=== PATIENT | male | born 1970 | race Two or more races ===

== ENCOUNTER 2017-04-10 09:55 | Emergency (ER) | payer OTHER ==
[~2017-04-10] VITALS: Ht 162.6 cm; Wt 84.8 kg
[2017-04-10 10:25] VITALS: BP 145/81
--- NOTE | 2017-04-10 10:27 | Emergency Room Report ---
History of Present Illness General Chief Complaint: General Complaint Source: Patient Present Illness HPI Patient present with complaints of rash and itching of his arms and legs Patient feels over the past several days he has had increased itching This morning upon waking he felt some shortness of breath sensation Patient also had felt cramping in both of his upper legs Denies any vomiting or diarrhea denies any fevers or chills Patient fell possibly his dog sitting on him might be causing some problems as his symptoms are worse in the morning Denies any change medications Allergies: Coded Allergies: UNABLE TO ASSESS (Unverified , 04/10/17) Patient stated that he is allergic to some antibiotics but unable to provide the name Patient History Past Medical History: see triage record Pertinent Family History: none Reviewed Nursing Documentation: PMH: Agreed, PSxH: Agreed Nursing Documentation-PMH Past Medical History: No History, Except For History Of Psychiatric Problem: Yes - Bipolar, Anxiety, ADHD Review of Systems All Other Systems: negative except mentioned in HPI Physical Exam Vital Signs Date Time Temp Pulse Resp B/P Pulse Ox O2 Delivery O2 Flow Rate FiO2 04/10/17 10:01 97.9 120 16 145/96 99 Room Air Sp02 EP Interpretation: reviewed, normal General Appearance: well appearing, no apparent distress Head: normocephalic, atraumatic Eyes: bilateral eye EOMI, bilateral eye PERRL ENT: hearing grossly normal, normal pharynx, TMs + canals normal, uvula midline Neck: full range of motion, supple, no meningismus, no bony tend Respiratory: lungs clear, normal breath sounds, no rhonchi, no respiratory distress, no retraction, no accessory muscle use Cardiovascular #1: normal peripheral pulses, regular rate, rhythm, no edema, no gallop, no JVD, no murmur Gastrointestinal: normal bowel sounds, non tender, soft, no mass, no organomegaly, non-distended, no guarding, no hernia, no pulsatile mass, no rebound Genitourinary: no CVA tenderness Musculoskeletal: normal inspection Neurologic: oriented x3, responsive, silk screen printing racker III-XII nml as tested, motor strength/ tone normal, sensory intact Psychiatric: mood/affect normal Skin: other - Nonspecific mildly raised erythematous lesion, urticarial on the upper arms, upper neck area Lymphatic: normal inspection, no adenopathy Medical Decision Making Diagnostic Impression: Primary Impression: Rash and nonspecific skin eruption ER Course Multiple differentials considered Given the patient's muscle complaints Baseline blood work including CK was also obtained Patient has done well throughout his stay No signs of any respiratory pathology Total CK was normal And the patient stable for close outpatient followup Labs Test 04/10/17 10:30 White Blood Count 7.4 K/UL (4.8-10.8) Red Blood Count 7.01 M/UL (4.70-6.10) Hemoglobin 14.7 G/DL (14.2-18.0) Hematocrit 48.3 % (42.0-52.0) Mean Corpuscular Volume 69 FL (80-99) Mean Corpuscular Hemoglobin 21.0 PG (27.0-31.0) Mean Corpuscular Hemoglobin Concent 30.5 G/DL (32.0-36.0) Red Cell Distribution Width 15.0 % (11.6-14.8) Platelet Count 235 K/UL (150-450) Mean Platelet Volume 6.7 FL (6.5-10.1) Neutrophils (%) (Auto) 70.7 % (45.0-75.0) Lymphocytes (%) (Auto) 23.0 % (20.0-45.0) Monocytes (%) (Auto) 5.1 % (1.0-10.0) Eosinophils (%) (Auto) 0.6 % (0.0-3.0) Basophils (%) (Auto) 0.6 % (0.0-2.0) Sodium Level 137 mEQ/L (135-145) Potassium Level 4.2 mEQ/L (3.4-4.9) Chloride Level 94 mEQ/L (98-107) Carbon Dioxide Level 29 mEQ/L (20-30) Anion Gap 14 (5-15) Blood Urea Nitrogen 17 mg/dL (7-23) Creatinine 1.2 mg/dL (0.7-1.2) Estimat Glomerular Filtration Rate > 60 mL/min (>60) Glucose Level 142 mg/dL (74-106) Calcium Level 9.4 mg/dL (8.6-10.2) Total Bilirubin 0.2 mg/dL (0.0-1.2) Aspartate Amino Transf (AST/SGOT) 19 U/L (5-40) Alanine Aminotransferase (ALT/SGPT) 15 U/L (3-41) Alkaline Phosphatase 79 U/L (40-129) Total Creatine Kinase 67 U/L (38-174) Total Protein 7.5 g/dL (6.6-8.7) Albumin 4.3 g/dL (3.5-5.2) Globulin 3.2 g/dL Albumin/Globulin Ratio 1.3 (1.0-2.7) Last Vital Signs Date Time Temp Pulse Resp B/P Pulse Ox O2 Delivery O2 Flow Rate FiO2 04/10/17 10:01 97.9 120 16 145/96 99 Room Air Status: improved Disposition: HOME, SELF-CARE Condition: Improved Scripts Ranitidine Hcl* (ZANTAC*) 150 Mg Tablet 150 MG ORAL TWICE A DAY, #30 TAB Prov: MIKAELA SANCHEZ D.O. 04/10/17 Diphenhydramine Hcl* (BENADRYL*) 25 Mg Capsule 25 MG ORAL Q6H Y for Itching, #30 CAP Prov: MIKAELA SANCHEZ D.O. 04/10/17 Prednisone* (PREDNISONE*) 20 Mg Tablet 20 MG ORAL BID, #8 TAB Prov: MIKAELA SANCHEZ D.O. 04/10/17 Additional Instructions: Patient is provided with the discharge instructions notified to follow up with primary doctor in the next 2-3 days otherwise return to the er with any worsening symptoms. Please note that this report is being documented using [employer] technology. This can lead to erroneous entry secondary to incorrect interpretation by the dictating instrument. MIKAELA SANCHEZ D.O. April 10, 2017 10:27
[2017-04-10] MEDS ORDERED: Solu-MEDROL 125mg Inj IVP ONE (10:30)
[2017-04-10] MEDS ORDERED: DiphenhydrAMINE 50mg/ml Inj IVP ONE (10:30)
[2017-04-10] MEDS ORDERED: Solu-MEDROL 125mg Inj IM ONE (10:30)
[2017-04-10 10:59] LABS: BASOPHILS % (AUTO) 0.6 % (0.0-2.0); EOSINOPHILS % (AUTO) 0.6 % (0.0-3.0); MEAN CORPUSCULAR HGB CONC 30.5 G/DL (32.0-36.0); MEAN CORPUSCULAR VOLUME 69 FL (80-99); MEAN PLATELET VOLUME 6.7 FL (6.5-10.1); MONOCYTES % (AUTO) 5.1 % (1.0-10.0); NEUTROPHILS % (AUTO) 70.7 % (45.0-75.0); PLATELET COUNT 235 K/UL (150-450); RED BLOOD COUNT 7.01 M/UL (4.70-6.10); WHITE BLOOD COUNT 7.4 K/UL (4.8-10.8)
[2017-04-10 11:04] VITALS: BP 140/86
[2017-04-10 11:18] LABS: ALANINE AMINOTRANSFERASE 15 U/L (3-41); ALBUMIN/GLOBULIN RATIO 1.3 (1.0-2.7); ANION GAP 14 (5-15); ASPARTATE AMINO TRANSFERASE 19 U/L (5-40); CALCIUM 9.4 mg/dL (8.6-10.2); CARBON DIOXIDE 29 mEQ/L (20-30); CHLORIDE 94 mEQ/L (98-107); CREATININE 1.2 mg/dL (0.7-1.2); GLOMERULAR FILTRATION RATE > 60 mL/min (>60); HEMOLYSIS 3; POTASSIUM 4.2 mEQ/L (3.4-4.9); SODIUM 137 mEQ/L (135-145); TOTAL PROTEIN 7.5 g/dL (6.6-8.7)
[2017-04-10] MEDS ORDERED: PREDNISONE20 MG ORAL (11:33)
[2017-04-10] MEDS ORDERED: RANITIDINE HCL150 MG ORAL (11:33)
[2017-04-10] MEDS ORDERED: BENADRYL25 MG ORAL (11:33)
[2017-04-10 11:42] VITALS: BP 142/86
== END 2017-04-10 11:45 | disposition home or self-care (01) ==
LOC: EMR 10:30
DX: R21 Rash and other nonspecific skin eruption (principal); Z86.59 Personal history of other mental and behavioral disorders
CPT/HCPCS: 36415; 80053; 82550; 85025; 96374; 96375; 99284; J2930

== ENCOUNTER 2018-11-14 16:28 | Inpatient (IN) | payer BC, OTHER ==
[~2018-11-14] VITALS: Ht 167.6 cm; Wt 93.8 kg
[2018-11-14] VITALS (9 sets, daily range): BP systolic 90–129; BP diastolic 60–88
[~2018-11-14 16:28] MED LIST: BENADRYL25 MG ORAL; PREDNISONE20 MG ORAL; RANITIDINE HCL150 MG ORAL
[2018-11-14] MEDS ORDERED: CYTOMEL25 MCG ORAL (16:35)
[2018-11-14] MEDS ORDERED: TRAZODONE HCL50 MG ORAL (16:35)
[2018-11-14] MEDS ORDERED: CELEXA20 MG ORAL (16:35)
[2018-11-14] MEDS ORDERED: QUETIAPINE FUM200 MG ORAL (16:35)
[2018-11-14] MEDS ORDERED: MAGNESIUM OXID400 M1 ORAL (16:35)
[2018-11-14] MEDS ORDERED: BANOPHEN25 MG PO (16:35)
--- NOTE | 2018-11-14 16:37 | Emergency Room Report ---
History of Present Illness General Chief Complaint: Overdose Source: Patient, EMS Present Illness HPI EMS was contacted for an overdose. The patient allegedly took a Seroquel and Celexa. They're unable to ascertain what time. There were multiple tablets that were taken. The patient ambulated to the [facility]. Paramedics report decreasing mentation on the way into the hospital. An EKG in the field had sinus tachycardia. The patient states he took the pills 2 hours ago and wanted to kill himself. H/O bipolar disorder (from review of outpatient visits), ADHD and anxiety Further history unavailable. Allergies: Coded Allergies: No Known Allergies (Unverified , 11/14/18) UNABLE TO ASSESS (Unverified , 04/10/17) Patient stated that he is allergic to some antibiotics but unable to provide the name Patient History Limited by: medical condition Past Medical History: see triage record Social History: Denies: smoking Social History Narrative in rehab Reviewed Nursing Documentation: PMH: Agreed; PSxH: Agreed Review of Systems All Other Systems: limited Physical Exam Vital Signs Date Time Temp Pulse Resp B/P (MAP) Pulse Ox O2 Delivery O2 Flow Rate FiO2 11/14/18 16:17 160 16 121/85 89 Room Air Sp02 EP Interpretation: reviewed, abnormal - Interpreted as low by me General Appearance: non-toxic, other - GCS 13, eyes closed localizes pain vocalizes Head: normocephalic, atraumatic Eyes: bilateral eye PERRL, bilateral eye Scleral Injection ENT: moist mucus membranes Neck: supple Respiratory: chest non-tender, lungs clear, normal breath sounds, other - decreased tidal volume Cardiovascular #1: no edema, tachycardia Cardiovascular #2: 2+ radial (L) Gastrointestinal: non tender, soft, decreased bowel sounds, overweight Musculoskeletal: normal range of motion Neurologic: motor strength/tone normal - withdraws to pain, moves all 4, sensory intact, no Babinski, other - gag intact and opens eyes with this Psychiatric: other - stupor Reflexes: 2+ knee (R), 2+ knee (L) Skin: warm/dry, cyanosis Procedures Critical Care Time Critical Care Time Total Critical Care Time: 90 min bedside evaluation and treatment excludes procedures (EKG). Reason for critical care: overdose, respiratory failure, repeat evaluations Possible complications: hypotension, hypertension, OK, shock, arrhythmias, metabolic acidosis, end organ damage, respiratory failure. Interventions: BIPAP, cardiac monitoring, repeat evaluations, consultation with critical care MD Course: Patient presents 2 hours after ingestion of Celexa and Seroquel. Immediate assessment of airway and respiratory status. BIPAP begun with continuous CO2 monitoring. IV hydration. Improved CO2 and O2 on BIPAP. ST improving with IV hydration and treatment of respiratory failure. Discussion with critical care MD/family. Improved mentation with repeat evaluation on BIPAP. Consultations: nursing staff, EMS, RT, family, literature, critical care MD Performed by: Dr. Garcia Tolerated well condition = critical Medical Decision Making Diagnostic Impression: Primary Impression: Drug overdose Qualified Codes: T50.902A - Poisoning by unspecified drugs, medicaments and biological substances, intentional self-harm, initial encounter Additional Impressions: Respiratory failure Qualified Codes: J96.01 - Acute respiratory failure with hypoxia; J96.02 - Acute respiratory failure with hypercapnia UTI (urinary tract infection) Qualified Codes: N39.0 - Urinary tract infection, site not specified Suicide gesture Qualified Codes: X83.8XXA - Intentional self-harm by other specified means, initial encounter ER Course Patient presents after overdose of allegedly Seroquel and Celexa. He is tachycardic and has decreased mentation, hypoxemic but is protecting his airway. We need immediate blood gas to ascertain whether he needs to be intubated at this time. In addition to that we may end up alkalinizing him with bicarbonate. Differential includes polypharmacy overdose, stupor, electrolyte abnormality, acute myocardial infarction, suicide gesture amongst others. Evaluation will be with EKG, blood gas, chest x-ray and labs. Initially will treated with IV hydration and placed him on a health sciences department chair. Review of care of Celexa and Seroquel OD performed. No gastric lavage as > 2 hours since ingestion. As stupor, charcoal contraindicated. No need for benzodiazepines as not agitated. Monitor for QT prolongation as arrhythmia is of concern. With respiratory depression, may need to support with intubation. EKG with ST. QT prolonged. ABG 62/52/7.26. Start BIPAP. Labs with normal WBC. Min anemia. Glucose slightly elevated. K minimally low. UA with pyuria. CXR poor inspiration. Rocephin begun for pyuria. On Bipap, O2 sat improved and CO2 in 20's. Not need intubation, but needs close follow. Repeat evaluation: tachycardia improved. Opens his eyes and answers some questions following some commands, but still lethargic. Mentation and responsiveness has improved. CO2 monitor still reveals no retention and adequate ventilation. O2 sat 98%. HR still tachycardia but improved. No agitation and benzodiazepines not indicated at this time. Continued IV hydration and cardiac and CO2 monitoring. Admit ICU, Dr. Leary (per request of Dr. Grace). Dr. Chiang to consult when more alert. Laboratory Tests Test 11/14/18 16:40 11/14/18 18:48 Urine Color Viviana Urine Appearance Clear Urine pH 6.5 (4.5-8.0) Urine Specific [place] 1.015 (1.005-1.035) Urine Protein 1+ (NEGATIVE) H Urine Glucose (UA) Negative (NEGATIVE) Urine Ketones Negative (NEGATIVE) Urine Blood 1+ (NEGATIVE) H Urine Nitrite Negative (NEGATIVE) Urine Bilirubin Negative (NEGATIVE) Urine Ictotest Negative (NEGATIVE) Urine Urobilinogen Normal MG/DL (0.0-1.0) Urine Leukocyte Esterase 1+ (NEGATIVE) H Urine RBC 0-2 /HPF (0 - 0) H Urine WBC 10-15 /HPF (0 - 0) H Urine Squamous Epithelial Cells Occasional /LPF Urine Amorphous Sediment Moderate /LPF (NONE) H Urine Bacteria Few /HPF (NONE) Arterial Blood pH 7.298 (7.350-7.450) Arterial Blood Partial Pressure CO2 52.3 mmHg (35.0-45.0) H Arterial Blood Partial Pressure O2 62.5 mmHg (75.0-100.0) L Arterial Blood HCO3 25.0 mmol/L (22.0-26.0) Arterial Blood Oxygen Saturation 89.7 % (95-100) *L Arterial Blood Base Excess -2.1 (-2-2) L Derek Test Positive Sodium Level 137 MMOL/L (136-145) Potassium Level 3.4 MMOL/L (3.5-5.1) L Chloride Level 99 MMOL/L (98-107) Carbon Dioxide Level 27 MMOL/L (21-32) Anion Gap 11 mmol/L (5-15) Blood Urea Nitrogen 17 mg/dL (7-18) Creatinine 1.0 MG/DL (0.55-1.30) Estimate Glomerular Filtration Rate > 60 mL/min (>60) Glucose Level 152 MG/DL (74-106) H Calcium Level 9.2 MG/DL (8.5-10.1) Total Bilirubin 0.4 MG/DL (0.2-1.0) Aspartate Amino Transferase (AST) 22 U/L (15-37) Alanine Aminotransferase (ALT) 46 U/L (12-78) Alkaline Phosphatase 99 U/L (46-116) Total Creatine Kinase 53 U/L (26-308) Troponin I 0.000 ng/mL (0.000-0.056) Total Protein 8.8 G/DL (6.4-8.2) H Albumin 4.0 G/DL (3.4-5.0) Globulin 4.8 g/dL Albumin/Globulin Ratio 0.8 (1.0-2.7) L Salicylates Level 1.7 ug/mL (2.8-20) L Urine Opiates Screen Negative (NEGATIVE) Acetaminophen Level < 2 MCG/ML (10-30) L Urine Barbiturates Screen Negative (NEGATIVE) Phencyclidine (PCP) Screen Negative (NEGATIVE) Urine Amphetamines Screen Negative (NEGATIVE) Urine Benzodiazepines Screen Negative (NEGATIVE) Urine Cocaine Screen Negative (NEGATIVE) Urine Marijuana (THC) Screen Negative (NEGATIVE) Serum Alcohol < 3 mg/dL White Blood Count 9.8 K/UL (4.8-10.8) Red Blood Count 5.33 M/UL (4.70-6.10) Hemoglobin 10.5 G/DL (14.2-18.0) L Hematocrit 34.8 % (42.0-52.0) L Mean Corpuscular Volume 65 FL (80-99) L Mean Corpuscular Hemoglobin 19.6 PG (27.0-31.0) L Mean Corpuscular Hemoglobin Concent 30.0 G/DL (32.0-36.0) L Red Cell Distribution Width 15.1 % (11.6-14.8) H Platelet Count 150 K/UL (150-450) Mean Platelet Volume 8.1 FL (6.5-10.1) Neutrophils (%) (Auto) 81.1 % (45.0-75.0) H Lymphocytes (%) (Auto) 11.4 % (20.0-45.0) L Monocytes (%) (Auto) 6.4 % (1.0-10.0) Eosinophils (%) (Auto) 0.5 % (0.0-3.0) Basophils (%) (Auto) 0.7 % (0.0-2.0) EKG Diagnostic Results Rate: tachycardiac Rhythm: NSR ST Segments: no acute changes Rhythm Strip Diag. Results EP Interpretation: yes Rhythm: no PVC's, no ectopy, other - ST Chest X-Ray Diagnostic Results Chest X-Ray Diagnostic Results : Chest X-Ray Ordered: Yes # of Views/Limited/Complete: 1 View Indication: Other EP Interpretation: Yes Interpretation: no consolidation, no effusion, no pneumothorax, other - poor inspiration Impression: Other Electronically Signed by: Electronically signed by Kwame Garcia MD Status: improved Disposition: ADMITTED INPATIENT Condition: Critical Kwame Garcia MD Nov 14, 2018 16:37
[2018-11-14 16:56] LABS: APPEARANCE,URINE CLEAR; BILIRUBIN, URINE NEGATIVE (NEGATIVE); COLOR,URINE AMBER; GLUCOSE, URINE (UA) NEGATIVE (NEGATIVE); KETONES,URINE NEGATIVE (NEGATIVE); LEUKOCYTE ESTERASE ,URINE 1+ (NEGATIVE); NITRITE,URINE NEGATIVE (NEGATIVE); PH,URINE 6.5 (4.5-8.0); PROTEIN,URINE 1+ (NEGATIVE); UROBILINOGEN,URINE NORMAL MG/DL (0.0-1.0)
[2018-11-14 17:31] LABS: ANION GAP 11 mmol/L (5-15); BLOOD UREA NITROGEN 17 mg/dL (7-18); CALCIUM 9.2 MG/DL (8.5-10.1); CARBON DIOXIDE 27 MMOL/L (21-32); CHLORIDE 99 MMOL/L (98-107); POTASSIUM 3.4 MMOL/L (3.5-5.1); SODIUM 137 MMOL/L (136-145)
[2018-11-14 17:36] LABS: ALANINE AMINOTRANSFERASE 46 U/L (12-78); ALBUMIN/GLOBULIN RATIO 0.8 (1.0-2.7); ALKALINE PHOSPHATASE 99 U/L (46-116); ASPARTATE AMINO TRANSFERASE 22 U/L (15-37); BILIRUBIN,TOTAL 0.4 MG/DL (0.2-1.0); CREATINE KINASE 53 U/L (26-308)
[2018-11-14] MEDS ORDERED: cefTRIAXone 1 GM in NS 55 ML IVPB ONE (18:00)
[2018-11-14 18:57] LABS: BASOPHILS % (AUTO) 0.7 % (0.0-2.0); EOSINOPHILS % (AUTO) 0.5 % (0.0-3.0); HEMATOCRIT 34.8 % (42.0-52.0); HEMOGLOBIN 10.5 G/DL (14.2-18.0); LYMPHOCYTES % (AUTO) 11.4 % (20.0-45.0); MEAN CORPUSCULAR VOLUME 65 FL (80-99); MONOCYTES % (AUTO) 6.4 % (1.0-10.0); NEUTROPHILS % (AUTO) 81.1 % (45.0-75.0); PLATELET COUNT 150 K/UL (150-450); RED BLOOD COUNT 5.33 M/UL (4.70-6.10); RED CELL DISTRIBUTION WIDTH 15.1 % (11.6-14.8); WHITE BLOOD COUNT 9.8 K/UL (4.8-10.8)
[2018-11-14] MEDS: Heparin 5000 units/ml inj SUBQ SCH (20:37)
[2018-11-14] MEDS: Pantoprazole Inj IVP SCH (20:37)
--- NOTE | 2018-11-14 21:58 | Pulmonolgy Critical Care Note ---
Critical Care - Asmt/Plan Assessment/Plan: Pulmonary CCM Consultation HPI Patient admitted after an overdose. The patient allegedly took a Seroquel and Celexa. They're unable to ascertain what time. There were multiple tablets that were taken. The patient ambulated to the [facility]. Please decreasing mentation on the way into the hospital. An EKG didn't had sinus tachycardia. The patient states he took the pills 2 hours ago and wanted to kill himself. On Bipap Started on Ceftriaxone for UTI Allergies: No Known Allergies (Unverified , 11/14/18) Past Medical History: none noted Physical Exam Vital Signs Noted Date Time Temp Pulse Resp B/P (MAP) Pulse Ox O2 Delivery O2 Flow Rate FiO2 11/14/18 16:17 160 16 121/85 89 Room Air General Appearance: non-toxic, other - GCS 13, eyes closed localizes pain vocalizes Head: normocephalic, atraumatic Eyes: bilateral eye PERRL, bilateral eye Scleral Injection ENT: moist mucus membranes Neck: supple Respiratory: chest non-tender, lungs clear, normal breath sounds Cardiovascular #1: tachycardia, HS1, HS2 RRR Abdomen: SNTND Extremities: No edema, no rashes 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 Intubate if neccessary Monitor labs/ABG NPO Aspiration precautions Cardiac Monitoring Continue Ceftriaxone Laboratory Tests Test 11/14/18 16:40 11/14/18 18:48 Urine Color Viviana Urine Appearance Clear Urine pH 6.5 (4.5-8.0) Urine Specific [place] 1.015 (1.005-1.035) Urine Protein 1+ (NEGATIVE) H Urine Glucose (UA) Negative (NEGATIVE) Urine Ketones Negative (NEGATIVE) Urine Blood 1+ (NEGATIVE) H Urine Nitrite Negative (NEGATIVE) Urine Bilirubin Negative (NEGATIVE) Urine Ictotest Negative (NEGATIVE) Urine Urobilinogen Normal MG/DL (0.0-1.0) Urine Leukocyte Esterase 1+ (NEGATIVE) H Urine RBC 0-2 /HPF (0 - 0) H Urine WBC 10-15 /HPF (0 - 0) H Urine Squamous Epithelial Cells Occasional /LPF Urine Amorphous Sediment Moderate /LPF (NONE) H Urine Bacteria Few /HPF (NONE) Arterial Blood pH 7.298 (7.350-7.450) Arterial Blood Partial Pressure CO2 52.3 mmHg (35.0-45.0) H Arterial Blood Partial Pressure O2 62.5 mmHg (75.0-100.0) L Arterial Blood HCO3 25.0 mmol/L (22.0-26.0) Arterial Blood Oxygen Saturation 89.7 % (95-100) *L Arterial Blood Base Excess -2.1 (-2-2) L Derek Test Positive Sodium Level 137 MMOL/L (136-145) Potassium Level 3.4 MMOL/L (3.5-5.1) L Chloride Level 99 MMOL/L (98-107) Carbon Dioxide Level 27 MMOL/L (21-32) Anion Gap 11 mmol/L (5-15) Blood Urea Nitrogen 17 mg/dL (7-18) Creatinine 1.0 MG/DL (0.55-1.30) Estimate Glomerular Filtration Rate > 60 mL/min (>60) Glucose Level 152 MG/DL (74-106) H Calcium Level 9.2 MG/DL (8.5-10.1) Total Bilirubin 0.4 MG/DL (0.2-1.0) Aspartate Amino Transferase (AST) 22 U/L (15-37) Alanine Aminotransferase (ALT) 46 U/L (12-78) Alkaline Phosphatase 99 U/L (46-116) Total Creatine Kinase 53 U/L (26-308) Troponin I 0.000 ng/mL (0.000-0.056) Total Protein 8.8 G/DL (6.4-8.2) H Albumin 4.0 G/DL (3.4-5.0) Globulin 4.8 g/dL Albumin/Globulin Ratio 0.8 (1.0-2.7) L Salicylates Level 1.7 ug/mL (2.8-20) L Urine Opiates Screen Negative (NEGATIVE) Acetaminophen Level < 2 MCG/ML (10-30) L Urine Barbiturates Screen Negative (NEGATIVE) Phencyclidine (PCP) Screen Negative (NEGATIVE) Urine Amphetamines Screen Negative (NEGATIVE) Urine Benzodiazepines Screen Negative (NEGATIVE) Urine Cocaine Screen Negative (NEGATIVE) Urine Marijuana (THC) Screen Negative (NEGATIVE) Serum Alcohol < 3 mg/dL White Blood Count 9.8 K/UL (4.8-10.8) Red Blood Count 5.33 M/UL (4.70-6.10) Hemoglobin 10.5 G/DL (14.2-18.0) L Hematocrit 34.8 % (42.0-52.0) L Mean Corpuscular Volume 65 FL (80-99) L Mean Corpuscular Hemoglobin 19.6 PG (27.0-31.0) L Mean Corpuscular Hemoglobin Concent 30.0 G/DL (32.0-36.0) L Red Cell Distribution Width 15.1 % (11.6-14.8) H Platelet Count 150 K/UL (150-450) Mean Platelet Volume 8.1 FL (6.5-10.1) Neutrophils (%) (Auto) 81.1 % (45.0-75.0) H Lymphocytes (%) (Auto) 11.4 % (20.0-45.0) L Monocytes (%) (Auto) 6.4 % (1.0-10.0) Eosinophils (%) (Auto) 0.5 % (0.0-3.0) Basophils (%) (Auto) 0.7 % (0.0-2.0) Rhythm Strip Diag. Results EP Interpretation: yes Rhythm: no PVC's, no ectopy, other - ST Chest X-Ray Diagnostic Results Chest X-Ray Diagnostic Results : Chest X-Ray Ordered: Yes # of Views/Limited/Complete: 1 View Indication: Other EP Interpretation: Yes Interpretation: no consolidation, no effusion, no pneumothorax, other - poor inspiration Critical Care - Objective Last 24 Hour Vital Signs Date Time Temp Pulse Resp B/P (MAP) Pulse Ox O2 Delivery O2 Flow Rate FiO2 11/14/18 21:41 111 18 99 Facial 60 11/14/18 19:30 122 18 98 Facial 60 11/14/18 18:30 116 9 114/79 100 Room Air 11/14/18 17:25 18 Bi-pap 60 11/14/18 17:23 125 18 98 Facial 60 11/14/18 16:30 128 12 Nasal Cannula 2.0 90 11/14/18 16:30 97.7 128 12 122/80 90 Nasal Cannula 2.0 11/14/18 16:17 160 16 121/85 89 Room Air Critical Care - Subjective ROS Limited/Unobtainable: Yes Condition: critical EKG Rhythm: Sinus Rhythm FI02: 60 Vent Support Mode: BiLevel Sputum Amount: None Kwame Gandara MD Nov 14, 2018 21:58
[2018-11-15] VITALS (35 sets, daily range): BP systolic 82–149; BP diastolic 10–123
[2018-11-15 05:20] LABS: BASOPHILS % (AUTO) 0.7 % (0.0-2.0); EOSINOPHILS % (AUTO) 0.6 % (0.0-3.0); HEMATOCRIT 43.3 % (42.0-52.0); HEMOGLOBIN 13.1 G/DL (14.2-18.0); LYMPHOCYTES % (AUTO) 20.6 % (20.0-45.0); MEAN CORPUSCULAR VOLUME 66 FL (80-99); MONOCYTES % (AUTO) 6.9 % (1.0-10.0); NEUTROPHILS % (AUTO) 71.2 % (45.0-75.0); PLATELET COUNT 178 K/UL (150-450); RED BLOOD COUNT 6.61 M/UL (4.70-6.10); RED CELL DISTRIBUTION WIDTH 15.2 % (11.6-14.8); WHITE BLOOD COUNT 8.9 K/UL (4.8-10.8)
[2018-11-15 05:23] LABS: ANION GAP 6 mmol/L (5-15); BLOOD UREA NITROGEN 19 mg/dL (7-18); CALCIUM 8.3 MG/DL (8.5-10.1); CARBON DIOXIDE 28 MMOL/L (21-32); CHLORIDE 105 MMOL/L (98-107); CREATININE 1.1 MG/DL (0.55-1.30); POTASSIUM 4.2 MMOL/L (3.5-5.1); SODIUM 139 MMOL/L (136-145)
[2018-11-15] MEDS: Pantoprazole Inj IVP SCH (08:22)
[2018-11-15] MEDS: Heparin 5000 units/ml inj SUBQ SCH ×2 (08:22→20:19)
[2018-11-15] MEDS ORDERED: cefTRIAXone 1 GM in D5W 55 ML IVPB SCH (09:00)
--- NOTE | 2018-11-15 10:11 | Diagnostic Imaging Report ---
Indication: Chest pain Technique: One view of the chest Comparison: none Findings: Body habitus limits evaluation. There is atelectasis at both lung bases. Exam is hypoventilatory. The heart size is normal. Impression: Hypoventilatory exam with bibasilar atelectasis No acute process
[2018-11-15] MEDS ORDERED: LORazepam Inj 2mg/ml 1ml IV PRN ×2 (11:30→15:00)
--- NOTE | 2018-11-15 11:39 | Diagnostic Imaging Report ---
Indication: Cough Technique: One view of the chest Comparison: 11/14/2018 Findings: Body habitus limits evaluation. Inspiration is suboptimal, although better than on the prior study. There are persistent bilateral basilar atelectatic changes. No new infiltrates. Heart size is normal Impression: Hypoventilatory exam with bilateral basilar atelectasis No definite acute process otherwise or significant interim foreign exchange trader one day
[2018-11-15] MEDS ORDERED: LORazepam Inj 2mg/ml 1ml IM PRN ×2 (12:00→13:00)
--- NOTE | 2018-11-15 12:06 | Consultation ---
History of Present Illness General Chief Complaint: Overdose Present Illness HPI 48-year-old male, history of bipolar affective disorder, who came in with an overdose of antipsychotic/antidepressant drugs. The pt was brought into the er by an ambulance and was alert and oriented. the pt was not charcoaled in the ed. The pt was transferred and at some point became drowsy and then obtunded. The pt was placed on bipap machine around the clock. The pt was agitated and has myoclonic movements. The pt was not arousable Allergies: Coded Allergies: No Known Allergies (Unverified , 11/14/18) UNABLE TO ASSESS (Unverified , 04/10/17) Patient stated that he is allergic to some antibiotics but unable to provide the name Medication History Scheduled Citalopram Hydrobromide* (Celexa*), 40 MG ORAL DAILY, (Reported) Liothyronine Sodium* (Cytomel*), 25 MCG ORAL DAILY, (Reported) Magnesium Oxide (Magnesium Oxide), 400 MG ORAL DAILY, (Reported) Prednisone* (Prednisone*), 20 MG ORAL BID Quetiapine Fumarate* (Seroquel*), 300 MG ORAL DAILY, (Reported) Ranitidine Hcl* (Zantac*), 150 MG ORAL TWICE A DAY Trazodone Hcl* (Desyrel*), 50 MG ORAL BEDTIME, (Reported) Scheduled PRN Diphenhydramine Hcl* (Benadryl*), 25 MG ORAL Q6H PRN for Itching Miscellaneous Medications Diphenhydramine Hcl (Banophen), 25 MG PO, (Reported) Patient History Limited by: medical condition History Provided By: Medical Record, PMD Healthcare decision maker Resuscitation status Full Code Advanced Directive on File No Past Medical/Surgical History Past Medical/Surgical History: (1) Rash and nonspecific skin eruption (2) Seizure (3) Suicide gesture (4) Drug overdose (5) Respiratory failure (6) UTI (urinary tract infection) (7) encephalopathy due to toxin Review of Systems Psychiatric: Reports: hallucinations Physical Exam General Appearance: lethargic, confused, moderate distress, agitated Last 24 Hour Vital Signs Date Time Temp Pulse Resp B/P (MAP) Pulse Ox O2 Delivery O2 Flow Rate FiO2 11/15/18 11:00 113 22 99/65 (76) 97 11/15/18 10:47 102 22 98 Facial 40 12/17/18 10:00 102 22 97/65 (76) 97 17/18 09:00 103 18 102/67 (79) 96 17/18 08:54 100 22 98 Facial 40 17/18 08:30 40 17/18 08:29 103 98 1718 08:00 99.0 108 20 108/69 (82) 97 1718 08:00 106 18 08:00 40 18 08:00 Bi-pap 11/15/18 07:00 103 21 105/75 (85) 96 18 06:50 101 20 96 Facial 40 18 06:00 105 18 110/70 (83) 94 18 05:00 107 18 108/77 (87) 93 18 04:56 103 20 95 Full Face 40 11/15/18 04:00 97.8 98 20 102/65 (77) 99 11/15/18 04:00 Bi-pap 11/15/18 04:00 40 18 03:35 101 18 03:30 104 20 98 Facial 40 18 03:00 102 18 104/69 (81) 98 18 02:00 98 20 93/67 (76) 99 18 01:30 106 20 97 Full Face 40 18 01:00 97 18 111/79 (90) 99 17/18 00:00 99 18 00:00 97.7 98 16 109/77 (88) 98 18 00:00 Bi-pap 18 23:30 109 18 98 Facial 40 16/18 23:15 40 1618 23:00 106 18 103/68 (80) 98 16/18 22:00 112 12 105/65 (78) 99 11/14/18 21:41 111 18 99 Facial 60 16/18 21:30 118 13 90/60 (70) 99 16/18 21:30 60 16/18 21:00 124 17 118/88 (98) 99 1618 20:30 122 19 129/87 (101) 99 16/18 20:00 133 12/16/18 20:00 Bi-pap 11/14/18 20:00 60 11/14/18 20:00 131 19 94/60 (71) 97 11/14/18 19:55 97.2 115 19 121/72 93 Bi-pap 60 115 11/14/18 19:50 97.1 131 19 125/75 (92) 93 18 19:49 127 11/14/18 19:48 Bi-pap 11/14/18 19:30 122 18 98 Facial 60 11/14/18 18:30 116 9 114/79 100 Room Air 11/14/18 17:25 18 Bi-pap 60 11/14/18 17:23 125 18 98 Facial 60 11/14/18 16:30 128 12 Nasal Cannula 2.0 90 11/14/18 16:30 97.7 128 12 122/80 90 Nasal Cannula 2.0 11/14/18 16:17 160 16 121/85 89 Room Air Intake and Output 11/14/18 11/15/18 19:00 07:00 Intake Total 2565 ml Output Total 1000 ml Balance 1565 ml Intake Oral 0 ml IV Total 2565 ml Output Urine Total 1000 ml Laboratory Tests Test 11/14/18 16:40 18 18:48 11/14/18 21:20 11/14/18 22:55 Urine Color Viviana Urine Appearance Clear Urine pH 6.5 (4.5-8.0) Urine Specific [place] 1.015 (1.005-1.035) Urine Protein 1+ (NEGATIVE) H Urine Glucose (UA) Negative (NEGATIVE) Urine Ketones Negative (NEGATIVE) Urine Blood 1+ (NEGATIVE) H Urine Nitrite Negative (NEGATIVE) Urine Bilirubin Negative (NEGATIVE) Urine Ictotest Negative (NEGATIVE) Urine Urobilinogen Normal MG/DL (0.0-1.0) Urine Leukocyte Esterase 1+ (NEGATIVE) H Urine RBC 0-2 /HPF (0 - 0) H Urine WBC 10-15 /HPF (0 - 0) H Urine Squamous Epithelial Cells Occasional /LPF Urine Amorphous Sediment Moderate /LPF (NONE) H Urine Bacteria Few /HPF (NONE) Arterial Blood pH 7.298 (7.350-7.450) 7.245 (7.350-7.450) 7.262 (7.350-7.450) Arterial Blood Partial Pressure CO2 52.3 mmHg (35.0-45.0) H 66.6 mmHg (35.0-45.0) *H 60.5 mmHg (35.0-45.0) *H Arterial Blood Partial Pressure O2 62.5 mmHg (75.0-100.0) L 130.2 mmHg (75.0-100.0) H 136.0 mmHg (75.0-100.0) H Arterial Blood HCO3 25.0 mmol/L (22.0-26.0) 28.2 mmol/L (22.0-26.0) H 26.7 mmol/L (22.0-26.0) H Arterial Blood Oxygen Saturation 89.7 % (95-100) *L 98.1 % (95-100) 98.3 % (95-100) Arterial Blood Base Excess -2.1 (-2-2) L -0.8 (-2-2) -1.6 (-2-2) Derek Test Positive Positive Positive Sodium Level 137 MMOL/L (136-145) Potassium Level 3.4 MMOL/L (3.5-5.1) L Chloride Level 99 MMOL/L (98-107) Carbon Dioxide Level 27 MMOL/L (21-32) Anion Gap 11 mmol/L (5-15) Blood Urea Nitrogen 17 mg/dL (7-18) Creatinine 1.0 MG/DL (0.55-1.30) Estimat Glomerular Filtration Rate > 60 mL/min (>60) Glucose Level 152 MG/DL (74-106) H Calcium Level 9.2 MG/DL (8.5-10.1) Total Bilirubin 0.4 MG/DL (0.2-1.0) Aspartate Amino Transf (AST/SGOT) 22 U/L (15-37) Alanine Aminotransferase (ALT/SGPT) 46 U/L (12-78) Alkaline Phosphatase 99 U/L (46-116) Total Creatine Kinase 53 U/L (26-308) Troponin I 0.000 ng/mL (0.000-0.056) Total Protein 8.8 G/DL (6.4-8.2) H Albumin 4.0 G/DL (3.4-5.0) Globulin 4.8 g/dL Albumin/Globulin Ratio 0.8 (1.0-2.7) L Salicylates Level 1.7 ug/mL (2.8-20) L Urine Opiates Screen Negative (NEGATIVE) Acetaminophen Level < 2 MCG/ML (10-30) L Urine Barbiturates Screen Negative (NEGATIVE) Phencyclidine (PCP) Screen Negative (NEGATIVE) Urine Amphetamines Screen Negative (NEGATIVE) Urine Benzodiazepines Screen Negative (NEGATIVE) Urine Cocaine Screen Negative (NEGATIVE) Urine Marijuana (THC) Screen Negative (NEGATIVE) Serum Alcohol < 3 mg/dL White Blood Count 9.8 K/UL (4.8-10.8) Red Blood Count 5.33 M/UL (4.70-6.10) Hemoglobin 10.5 G/DL (14.2-18.0) L Hematocrit 34.8 % (42.0-52.0) L Mean Corpuscular Volume 65 FL (80-99) L Mean Corpuscular Hemoglobin 19.6 PG (27.0-31.0) L Mean Corpuscular Hemoglobin Concent 30.0 G/DL (32.0-36.0) L Red Cell Distribution Width 15.1 % (11.6-14.8) H Platelet Count 150 K/UL (150-450) Mean Platelet Volume 8.1 FL (6.5-10.1) Neutrophils (%) (Auto) 81.1 % (45.0-75.0) H Lymphocytes (%) (Auto) 11.4 % (20.0-45.0) L Monocytes (%) (Auto) 6.4 % (1.0-10.0) Eosinophils (%) (Auto) 0.5 % (0.0-3.0) Basophils (%) (Auto) 0.7 % (0.0-2.0) Test 11/15/18 04:50 11/15/18 06:50 11/15/18 10:10 White Blood Count 8.9 K/UL (4.8-10.8) Red Blood Count 6.61 M/UL (4.70-6.10) H Hemoglobin 13.1 G/DL (14.2-18.0) L Hematocrit 43.3 % (42.0-52.0) Mean Corpuscular Volume 66 FL (80-99) L Mean Corpuscular Hemoglobin 19.8 PG (27.0-31.0) L Mean Corpuscular Hemoglobin Concent 30.1 G/DL (32.0-36.0) L Red Cell Distribution Width 15.2 % (11.6-14.8) H Platelet Count 178 K/UL (150-450) Mean Platelet Volume 7.6 FL (6.5-10.1) Neutrophils (%) (Auto) 71.2 % (45.0-75.0) Lymphocytes (%) (Auto) 20.6 % (20.0-45.0) Monocytes (%) (Auto) 6.9 % (1.0-10.0) Eosinophils (%) (Auto) 0.6 % (0.0-3.0) Basophils (%) (Auto) 0.7 % (0.0-2.0) Sodium Level 139 MMOL/L (136-145) Potassium Level 4.2 MMOL/L (3.5-5.1) Chloride Level 105 MMOL/L (98-107) Carbon Dioxide Level 28 MMOL/L (21-32) Anion Gap 6 mmol/L (5-15) Blood Urea Nitrogen 19 mg/dL (7-18) H Creatinine 1.1 MG/DL (0.55-1.30) Estimat Glomerular Filtration Rate > 60 mL/min (>60) Glucose Level 96 MG/DL (74-106) Calcium Level 8.3 MG/DL (8.5-10.1) L Magnesium Level 1.9 MG/DL (1.8-2.4) Arterial Blood pH 7.293 (7.350-7.450) 7.405 (7.350-7.450) Arterial Blood Partial Pressure CO2 56.8 mmHg (35.0-45.0) *H 44.1 mmHg (35.0-45.0) Arterial Blood Partial Pressure O2 84.0 mmHg (75.0-100.0) 65.1 mmHg (75.0-100.0) L Arterial Blood HCO3 26.9 mmol/L (22.0-26.0) H 27.0 mmol/L (22.0-26.0) H Arterial Blood Oxygen Saturation 95.6 % (95-100) 93.3 % (95-100) L Arterial Blood Base Excess -0.7 (-2-2) 1.9 (-2-2) Derek Test Positive Positive Microbiology Date/Time Source Procedure Growth Status 11/14/18 16:40 Urine,Clean Catch Urine Culture - Preliminary NO GROWTH Resulted Height (Feet): 5 Height (Inches): 6.00 Weight (Pounds): 200 Medications Current Medications Medications (Trade) Dose Ordered Sig/Oliva Route PRN Reason Start Time Stop Time Status Last Admin Dose Admin Heparin Sodium (Porcine) (Heparin 5000 units/ml) 5,000 units EVERY 12 HOURS SUBQ 11/14/18 21:00 12/14/18 20:59 11/15/18 08:22 Lorazepam (Ativan 2mg/ml 1ml) 1 mg Q3H PRN IM Agitation 11/15/18 12:00 11/22/18 11:59 Pantoprazole (Protonix) 40 mg DAILY IVP 11/14/18 20:30 12/14/18 20:29 11/15/18 08:22 Sodium Chloride 1,000 ml @ 125 mls/hr Q8H IV 11/14/18 20:30 12/14/18 20:29 11/15/18 04:24 Assessment/Plan Problem List: (1) Bipolar disorder ICD Codes: F31.9 - Bipolar disorder, unspecified SNOMED: [id number] (2) encephalopathy due to toxin Status: stable Assessment/Plan dc ceftriaxone bipap as needed during the day increase Ativan prn to 1mg IM q2hr cont to monitor Nery Chiang MD Nov 15, 2018 12:06
[2018-11-15] MEDS ORDERED: Isovue-370 150ml vial INJ PRN (16:00)
--- NOTE | 2018-11-15 16:02 | Emergency Room Report ---
History of Present Illness General Chief Complaint: Overdose Source: Patient, EMS Present Illness Allergies: Coded Allergies: No Known Allergies (Unverified , 11/14/18) UNABLE TO ASSESS (Unverified , 04/10/17) Patient stated that he is allergic to some antibiotics but unable to provide the name Nursing Documentation-[facility] Past Medical History Deferred: Pt Cognitively Impaired Past Medical History: No History, Except For Hx Cardiac Problems: No Hx Cancer: No Hx Gastrointestinal Problems: No History Of Psychiatric Problem: Yes - depression drugs obuse Hx Neurological Problems: No Physical Exam Vital Signs Date Time Temp Pulse Resp B/P (MAP) Pulse Ox O2 Delivery O2 Flow Rate FiO2 11/14/18 16:17 160 16 121/85 89 Room Air 11/14/18 16:30 97.7 2.0 11/14/18 16:30 90 Procedures Intubation Intubation : Consent: Other - inpatient attending requested ICU intubation Time of Intubation: 16:01 Intubation Method: orotracheal Tube Size (cm): 7.5 Medications: Etomidate, Succinylcholine Breath Sounds after Intubation: equal Intubation Complications: O2 saturation decreased - very transiently to 70' s then immediately back up with BVM, due to slight delayed attachment of BVM after ETT placement Post Intubation Xray: Yes Attempts: One Patient Tolerated: Well Complications: None Medical Decision Making Diagnostic Impression: Primary Impression: Drug overdose Additional Impressions: Suicide gesture Respiratory failure UTI (urinary tract infection) Last Vital Signs Date Time Temp Pulse Resp B/P (MAP) Pulse Ox O2 Delivery O2 Flow Rate FiO2 11/15/18 15:08 118 23 100 Facial 40 11/15/18 15:00 133/79 (97) 11/15/18 12:00 99.5 11/14/18 16:30 2.0 Disposition: ADMITTED INPATIENT Condition: Critical Referrals: Dylan Grace MD (PCP) KALPESH ODELL M.D Nov 15, 2018 16:02
[2018-11-15] MEDS: Activated Charcoal 50gm/240ml Btl ORAL SCH ×2 (19:35→23:00)
--- NOTE | 2018-11-15 19:52 | Consultation ---
Consult Note Consult Note NEUROLOGY CONSULTATION: Full note dictated #[id number] 48 y/o, CM of ?H who has a PH of BAD, was hospitalized on 11/14/18 when he overdosed on an unknown quantity of Seroquel and Celexa. He [place] [facility] [place] and was placed on BIPAP. He did not have stomach lavage. He was then transferred to the ICU. The BIPAP was discontinued at ~ 11:30 and at ~ 14:15 he had an episode of generalized clonic movements lasting ~ 10 seconds associated with severe O2 desaturation and worsening of his AMS. He was bagged immediately and soon afterwords was intubated and artificially ventilated. He has since been sedated with propofol and fentanyl. ON EXAM: Can be aroused with DP Moves all 4s on DP equally. Blinks to threat. Corneals equal. EOMs full. DTRs brisk Plantars flexor. IMPRESSION: Unclear if clonic episode was due to hypoxia or a true seizure. REC: Start activated charcoal ABBY. EEG CT of brain in AM No need for anti-seizure medicine at this time. Support in ICU If patient has true seizure which lasts >2 minutes treat with Ativan 2 MG IV Lázaro Hale M.D., M.S.P.H. Lázaro Hale MD Nov 15, 2018 19:52
[2018-11-15] MEDS: Midazolam/D5W 100ml 100 ML IVPB SCH (20:16)
--- NOTE | 2018-11-15 23:12 | Pulmonolgy Critical Care Note ---
Critical Care - Asmt/Plan Assessment/Plan: Pulmonary CCM Consultation HPI Patient admitted after an overdose. The patient allegedly took a Seroquel and Celexa. They're unable to ascertain what time. There were multiple tablets that were taken. The patient ambulated to the [facility]. Please decreasing mentation on the way into the hospital. An EKG didn't had sinus tachycardia. The patient states he took the pills 2 hours ago and wanted to kill himself. On AC VC RR 24 Started on Ceftriaxone/Flagyl for UTI/ASpiration Pneumonia Seizure today - Neurology following, CT/EEG pending Allergies: No Known Allergies (Unverified , 11/14/18) Past Medical History: none noted Physical Exam Vital Signs Noted Date Time Temp Pulse Resp B/P (MAP) Pulse Ox O2 Delivery O2 Flow Rate FiO2 11/14/18 16:17 160 16 121/85 89 Room Air General Appearance: non-toxic, sedated, eyes closed localizes pain vocalizes Head: normocephalic, atraumatic Eyes: bilateral eye PERRL, bilateral eye Scleral Injection ENT: moist mucus membranes Neck: supple Respiratory: chest non-tender, lungs clear, normal breath sounds Cardiovascular #1: tachycardia, HS1, HS2 RRR Abdomen: SNTND Extremities: No edema, no rashes MACHINE CAPTAIN: moves all extremities, PEERL, no seizures, no focal sign, purposeful to pain Impression: Drug overdose Respiratory failure UTI (urinary tract infection) EKG: No ischemia, ST Plan AC Ativan/Fentanyl PRN Elevated TG - Propofol not used Monitor labs/ABG NPO Aspiration precautions Cardiac Monitoring Continue Ceftriaxone/Flagyl Psychiatry following Laboratory Tests Test 11/14/18 16:40 11/14/18 18:48 Urine Color Viviana Urine Appearance Clear Urine pH 6.5 (4.5-8.0) Urine Specific [place] 1.015 (1.005-1.035) Urine Protein 1+ (NEGATIVE) H Urine Glucose (UA) Negative (NEGATIVE) Urine Ketones Negative (NEGATIVE) Urine Blood 1+ (NEGATIVE) H Urine Nitrite Negative (NEGATIVE) Urine Bilirubin Negative (NEGATIVE) Urine Ictotest Negative (NEGATIVE) Urine Urobilinogen Normal MG/DL (0.0-1.0) Urine Leukocyte Esterase 1+ (NEGATIVE) H Urine RBC 0-2 /HPF (0 - 0) H Urine WBC 10-15 /HPF (0 - 0) H Urine Squamous Epithelial Cells Occasional /LPF Urine Amorphous Sediment Moderate /LPF (NONE) H Urine Bacteria Few /HPF (NONE) Arterial Blood pH 7.298 (7.350-7.450) Arterial Blood Partial Pressure CO2 52.3 mmHg (35.0-45.0) H Arterial Blood Partial Pressure O2 62.5 mmHg (75.0-100.0) L Arterial Blood HCO3 25.0 mmol/L (22.0-26.0) Arterial Blood Oxygen Saturation 89.7 % (95-100) *L Arterial Blood Base Excess -2.1 (-2-2) L Derek Test Positive Sodium Level 137 MMOL/L (136-145) Potassium Level 3.4 MMOL/L (3.5-5.1) L Chloride Level 99 MMOL/L (98-107) Carbon Dioxide Level 27 MMOL/L (21-32) Anion Gap 11 mmol/L (5-15) Blood Urea Nitrogen 17 mg/dL (7-18) Creatinine 1.0 MG/DL (0.55-1.30) Estimate Glomerular Filtration Rate > 60 mL/min (>60) Glucose Level 152 MG/DL (74-106) H Calcium Level 9.2 MG/DL (8.5-10.1) Total Bilirubin 0.4 MG/DL (0.2-1.0) Aspartate Amino Transferase (AST) 22 U/L (15-37) Alanine Aminotransferase (ALT) 46 U/L (12-78) Alkaline Phosphatase 99 U/L (46-116) Total Creatine Kinase 53 U/L (26-308) Troponin I 0.000 ng/mL (0.000-0.056) Total Protein 8.8 G/DL (6.4-8.2) H Albumin 4.0 G/DL (3.4-5.0) Globulin 4.8 g/dL Albumin/Globulin Ratio 0.8 (1.0-2.7) L Salicylates Level 1.7 ug/mL (2.8-20) L Urine Opiates Screen Negative (NEGATIVE) Acetaminophen Level < 2 MCG/ML (10-30) L Urine Barbiturates Screen Negative (NEGATIVE) Phencyclidine (PCP) Screen Negative (NEGATIVE) Urine Amphetamines Screen Negative (NEGATIVE) Urine Benzodiazepines Screen Negative (NEGATIVE) Urine Cocaine Screen Negative (NEGATIVE) Urine Marijuana (THC) Screen Negative (NEGATIVE) Serum Alcohol < 3 mg/dL White Blood Count 9.8 K/UL (4.8-10.8) Red Blood Count 5.33 M/UL (4.70-6.10) Hemoglobin 10.5 G/DL (14.2-18.0) L Hematocrit 34.8 % (42.0-52.0) L Mean Corpuscular Volume 65 FL (80-99) L Mean Corpuscular Hemoglobin 19.6 PG (27.0-31.0) L Mean Corpuscular Hemoglobin Concent 30.0 G/DL (32.0-36.0) L Red Cell Distribution Width 15.1 % (11.6-14.8) H Platelet Count 150 K/UL (150-450) Mean Platelet Volume 8.1 FL (6.5-10.1) Neutrophils (%) (Auto) 81.1 % (45.0-75.0) H Lymphocytes (%) (Auto) 11.4 % (20.0-45.0) L Monocytes (%) (Auto) 6.4 % (1.0-10.0) Eosinophils (%) (Auto) 0.5 % (0.0-3.0) Basophils (%) (Auto) 0.7 % (0.0-2.0) Rhythm Strip Diag. Results EP Interpretation: yes Rhythm: no PVC's, no ectopy, other - ST Chest X-Ray Diagnostic Results Chest X-Ray Diagnostic Results : Chest X-Ray Ordered: Yes # of Views/Limited/Complete: 1 View Indication: Other EP Interpretation: Yes Interpretation: no consolidation, no effusion, no pneumothorax, other - poor inspiration Critical Care - Objective Last 24 Hour Vital Signs Date Time Temp Pulse Resp B/P (MAP) Pulse Ox O2 Delivery O2 Flow Rate FiO2 11/15/18 22:53 71 24 40 11/15/18 22:00 24 Mechanical Ventilator 50 11/15/18 22:00 68 24 87/60 (69) 96 11/15/18 21:30 77 24 95/62 (73) 97 11/15/18 21:24 89 24 40 11/15/18 21:00 80 24 105/66 (79) 98 11/15/18 21:00 24 Mechanical Ventilator 50 11/15/18 21:00 24 Mechanical Ventilator 50 12/17/18 20:30 85 24 112/73 (86) 98 17/18 20:16 24 Mechanical Ventilator 50 17/18 20:00 84 17/18 20:00 Mechanical Ventilator 17/18 20:00 24 Mechanical Ventilator 50 17/18 20:00 98.4 76 24 125/88 (100) 98 17/18 19:30 93 24 115/90 (98) 100 17/18 19:10 21 Mechanical Ventilator 40 17/18 19:06 100 24 50 17/18 19:00 76 21 92/64 (73) 100 17/18 18:50 21 92/64 Mechanical Ventilator 40 11/15/18 18:13 28 96/69 Mechanical Ventilator 50 11/15/18 18:10 28 Mechanical Ventilator 50 11/15/18 18:00 28 105/73 (84) 100 17/18 17:45 91 28 105/73 (84) 100 18 17:40 28 Mechanical Ventilator 50 18 17:30 96 28 103/71 (82) 100 17/18 17:25 28 Mechanical Ventilator 100 11/15/18 17:15 98 28 108/10 (42) 100 17/18 17:13 100 28 100 17/18 17:13 28 108/10 Mechanical Ventilator 100 11/15/18 17:00 103 28 115/73 (87) 100 11/15/18 16:58 28 115/75 Mechanical Ventilator 100 18 16:46 116 28 Mechanical Ventilator 100 18 16:45 108 28 105/65 (78) 100 17/18 16:43 28 105/65 Mechanical Ventilator 18 16:30 117 28 82/70 (74) 100 17/18 16:28 28 148/86 Mechanical Ventilator 100 18 16:20 100 17/18 16:15 118 27 148/86 (106) 100 18 16:00 98.3 115 24 149/123 (132) 99 11/15/18 16:00 40 17/18 16:00 110 17/18 16:00 Bi-pap 18 15:45 116 28 100 18 15:08 118 23 100 Facial 40 18 15:00 113 22 133/79 (97) 98 11/15/18 14:00 129 20 125/58 (80) 98 17/18 13:00 104 13 125/74 (91) 96 18 12:00 104 18 12:00 99.5 104 21 123/79 (94) 95 1718 12:00 Bi-pap 11/15/18 11:00 113 22 99/65 (76) 97 18 10:47 102 22 98 Facial 40 18 10:00 102 22 97/65 (76) 97 18 09:00 103 18 102/67 (79) 96 18 08:54 100 22 98 Facial 40 18 08:30 40 18 08:29 103 98 11/15/18 08:00 99.0 108 20 108/69 (82) 97 11/15/18 08:00 106 11/15/18 08:00 40 11/15/18 08:00 Bi-pap 11/15/18 07:00 103 21 105/75 (85) 96 18 06:50 101 20 96 Facial 40 11/15/18 06:00 105 18 110/70 (83) 94 18 05:00 107 18 108/77 (87) 93 18 04:56 103 20 95 Full Face 40 11/15/18 04:00 97.8 98 20 102/65 (77) 99 18 04:00 Bi-pap 11/15/18 04:00 40 18 03:35 101 1718 03:30 104 20 98 Facial 40 18 03:00 102 18 104/69 (81) 98 18 02:00 98 20 93/67 (76) 99 18 01:30 106 20 97 Full Face 40 18 01:00 97 18 111/79 (90) 99 18 00:00 99 18 00:00 97.7 98 16 109/77 (88) 98 18 00:00 Bi-pap 11/14/18 23:30 109 18 98 Facial 40 11/14/18 23:15 40 Micro: Microbiology Date/Time Source Procedure Growth Status 11/14/18 16:40 Urine,Clean Catch Urine Culture - Preliminary NO GROWTH Resulted Critical Care - Subjective ROS Limited/Unobtainable: Yes Condition: critical IV Access: peripheral EKG Rhythm: Sinus Rhythm FI02: 40 Vent Support Breath Rate: 24 Vent Support Mode: AC Vent Tidal Volume: 550 Sputum Amount: Moderate PEEP: 5.0 PIP: 28 I&O: Intake and Output 11/14/18 11/15/18 19:00 07:00 Intake Total 2565 ml Output Total 1000 ml Balance 1565 ml Intake Oral 0 ml IV Total 2565 ml Output Urine Total 1000 ml ET-Tube: 7.5 ET Position: 20 Kwame Gandara MD Nov 15, 2018 23:12
--- NOTE | 2018-11-15 23:15 | Consultation ---
DATE OF CONSULTATION: 11/15/2018 NEUROLOGY CONSULTATION CONSULTING PHYSICIAN: Lázaro Hale M.D. REQUESTING PHYSICIAN: Kwame Gandara M.D. HISTORY: Mr. Nabil Grace is a 48-year-old, gentleman, of unknown handedness, who does have a past history of bipolar affective disorder. He was functioning relatively well until 11/14/2018 when he overdosed on an unknown quantity of Seroquel and Celexa. He was brought into the [facility] emergency room immediately. He was observed in the ER and started on BiPAP as his respiratory function started to deteriorate. It should be noted that he did not have any stomach lavage performed. He was then transferred to the ICU. His BiPAP was discontinued at approximately 1130 hours on 11/15/2018. At approximately 1415 hours, he had an episode of generalized clonic movements, lasting approximately 10 seconds associated with significant oxygen desaturation into the 60s and worsening of his mental state. He was bagged immediately and soon afterwards he was intubated and artificially ventilated. Since then, he has been sedated with propofol and fentanyl. At this point in time, the patient is unresponsive. This consultation was requested to evaluate and manage the patient's seizures. PAST MEDICAL HISTORY: Significant for bipolar affective disorder. FAMILY HISTORY: Unavailable. PERSONAL HISTORY: Unavailable. MEDICATIONS: Present medications include ceftriaxone; midazolam; charcoal, which has not been started yet; fentanyl intravenously; metronidazole; propofol; lorazepam p.r.n.; heparin for DVT prophylaxis; and pantoprazole. PHYSICAL EXAMINATION: GENERAL: He is a well-developed and well-nourished slightly obese gentleman, lying in an ICU bed, connected to a ventilator via an orotracheal tube. VITAL SIGNS: Pulse 91/minute, blood pressure 96/69 mmHg, respirations 28/minute, temperature 98.3 degrees Fahrenheit. HEAD: Head is normocephalic and atraumatic. EENT: Examination benign. NECK: No neck rigidity was observed. NEUROLOGICAL EXAMINATION: MENTAL STATUS EXAMINATION: After his fentanyl and propofol had been discontinued for some time, he was arousable on applying deep painful stimuli. When aroused, he did follow a few simple commands inconsistently. Further mental status testing was impossible. SPEECH: Could not be tested as he was intubated. LANGUAGE: He did follow a few simple commands and gave some yes and no answers. CRANIAL NERVE EXAMINATION: II: He did blink to threat. III, IV & : The external ocular movements were full and the pupils were 3 mm in diameter, equal, round, regular, and reactive sluggishly to light. V & VII: The corneal reflexes were present and equal bilaterally. VIII: He did seem to hear and had no nystagmus. IX & X: The gag reflex was absent on manipulating the endotracheal tube. XI: The sternocleidomastoids and trapezii did function. XII: Could not be tested adequately. MOTOR SYSTEM: The tone was normal in all four extremities. Examination of muscle mass revealed no focal wasting. Examination of power could not be performed because of his inability to cooperative. However, when deep painful stimuli were applied, he moved all four extremities vigorously and equally. SENSORY EXAMINATION: He responded appropriately to deep pain. REFLEXES: 2+ and bilaterally symmetrical at the biceps, triceps, brachioradialis, and knees and 1+ at both ankles. The plantar responses were flexor bilaterally. COORDINATION, STANCE & GAIT: Could not be tested. DIAGNOSTIC IMPRESSION: 1. Mr. Nabil Grace is a 48-year-old, gentleman, of unknown handedness, who does have a past history of bipolar affective disorder, who was hospitalized on 11/14/2018 after he overdosed on an unknown quantity of Seroquel and Celexa. He was brought into the [facility] emergency room and was placed on BiPAP. Of note is that a stomach lavage was not performed. He was then transferred to the ICU and was on BiPAP in the ICU until it was discontinued at approximately 1130 hours. At approximately 1415 hours, he was noted to have an episode of generalized clonic movements, lasting approximately 10 seconds associated with severe oxygen desaturation and worsening of his mental state. He was bagged immediately and soon afterwards he was intubated and artificially ventilated. He was then sedated with propofol and fentanyl. 2. On neurological examination, at this time, on propofol and fentanyl, he is unarousable and does not respond to any external stimuli. However, after both these drugs were stopped for an adequate amount of time, he did arouse with deep painful stimuli. He moved all four extremities equally on deep painful stimuli. In addition, he did blink to threat. His corneal reflexes were symmetrical. His eye movements were full and his deep tendon reflexes would brisk with flexor plantar responses. 3. His latest laboratory data revealed that he was anemic with a hemoglobin of 13.1. His arterial blood gas following the event this afternoon revealed a pH of 7.29, a pCO2 of 48, a pO2 of 76, and a bicarbonate of 22.5. His chemistry panel revealed a BUN elevated at 19 and low calcium at 8.3. His urinalysis revealed 1+ leukocyte esterase, 0-2 RBCs, and 10-15 WBCs per high-power field. His urine toxicology screen was negative. 4. At this point in time, it is unclear if his episode of abnormal clonic movements was due to a hypoxic event or a true seizure. RECOMMENDATIONS: 1. Agree with management thus far. 2. Would start the patient on activated charcoal as soon as possible. 3. An EEG should be performed to evaluate the patient for interictal or ictal phenomena. 4. A CT scan of the brain should be performed tomorrow morning to evaluate the patient for intracranial pathology. 5. At this point in time, no antiseizure medicine will be started. 6. If the patient does have a recurrent seizure that lasts for more than 2 minutes, then it should be treated with intravenous Ativan in a dose of 2 mg. 7. The patient should be observed closely in an ICU with adequate support of his cardiorespiratory function. Thank you for entrusting me with the care of Mr. Grace. I shall follow him with you. Lázaro Hale M.D., M.S.P.H. DR: GORDY JOB#: [id number] MTDD
[2018-11-16] VITALS (46 sets, daily range): BP systolic 99–152; BP diastolic 11–102
[2018-11-16] MEDS: Activated Charcoal 50gm/240ml Btl ORAL SCH (05:00)
--- NOTE | 2018-11-16 08:43 | Diagnostic Imaging Report ---
Indication: Post nasogastric tube placement Technique: Supine view of the upper abdomen Comparison: none Findings: There is a nasogastric tube coiled in the gastric fundus. The visualized bowel gas appears unremarkable. Impression: Satisfactory nasogastric intubation This agrees with the preliminary interpretation provided overnight by [facility].
--- NOTE | 2018-11-16 08:45 | Diagnostic Imaging Report ---
Indication: Post endotracheal tube placement Technique: One view of the chest Comparison: 11/15/2018 Findings: Interim endotracheal intubation, endotracheal tube tip projecting at the level of the thoracic inlet, 7 cm above the sujey. Nasogastric tube is also present, in good position. Suboptimal inspiration, with bibasilar atelectasis and crowding of bronchovascular markings. The heart size is upper limits of normal. Impression: Endotracheal tube somewhat high, at the thoracic inlet Other findings as noted This agrees with the preliminary interpretation provided overnight by [facility].
[2018-11-16] MEDS ORDERED: cefTRIAXone 1 GM in D5W 55 ML IVPB SCH (09:00)
[2018-11-16] MEDS: Pantoprazole Inj IVP SCH (09:48)
--- NOTE | 2018-11-16 09:53 | Diagnostic Imaging Report ---
Indication: Post intubation Technique: One view of the chest Comparison: 2 hours earlier Findings: Interim advancement of nasogastric tube, tip now in good position projecting approximately 3 cm above the sujey. Stable satisfactory position of nasogastric tube. Low lung volumes with crowding of bronchovascular markings again demonstrated. Impression: Improved and now satisfactory position of endotracheal tube This agrees with the preliminary interpretation provided overnight by [facility].
[2018-11-16] MEDS: Heparin 5000 units/ml inj SUBQ SCH ×2 (09:55→21:00)
[2018-11-16 10:07] LABS: BASOPHILS % (AUTO) 0.8 % (0.0-2.0); EOSINOPHILS % (AUTO) 1.1 % (0.0-3.0); HEMATOCRIT 40.5 % (42.0-52.0); HEMOGLOBIN 12.3 G/DL (14.2-18.0); LYMPHOCYTES % (AUTO) 19.1 % (20.0-45.0); MEAN CORPUSCULAR VOLUME 64 FL (80-99); MONOCYTES % (AUTO) 9.8 % (1.0-10.0); NEUTROPHILS % (AUTO) 69.2 % (45.0-75.0); PLATELET COUNT 181 K/UL (150-450); WHITE BLOOD COUNT 8.8 K/UL (4.8-10.8)
[2018-11-16 10:15] LABS: ANION GAP 10 mmol/L (5-15); BLOOD UREA NITROGEN 9 mg/dL (7-18); CALCIUM 8.4 MG/DL (8.5-10.1); CARBON DIOXIDE 25 MMOL/L (21-32); CHLORIDE 106 MMOL/L (98-107); CREATININE 1.4 MG/DL (0.55-1.30); POTASSIUM 3.2 MMOL/L (3.5-5.1); SODIUM 140 MMOL/L (136-145)
[2018-11-16 10:19] LABS: ALANINE AMINOTRANSFERASE 31 U/L (12-78); ALBUMIN/GLOBULIN RATIO 0.8 (1.0-2.7); ALKALINE PHOSPHATASE 76 U/L (46-116); ASPARTATE AMINO TRANSFERASE 22 U/L (15-37); BILIRUBIN,TOTAL 0.4 MG/DL (0.2-1.0)
--- NOTE | 2018-11-16 10:46 | Diagnostic Imaging Report ---
Indication: Post endotracheal tube replacement/suggest Technique: One view of the chest Comparison: 11/15/2018 Findings: Endotracheal tube projects just above the sujey, slightly lower than on the prior exam. Body habitus limits evaluation there are low lung volumes persist Impression: Slightly low position of endotracheal tube Findings discussed by phone with patient's nurse, Kwame, at the time of interpretation
--- NOTE | 2018-11-16 12:26 | Diagnostic Imaging Report ---
Indications: Altered mental status Technique: Spiral acquisitions obtained through the brain. Angled axial and coronal 5 x 5 mm slices were reconstructed. Total dose length product 1432.39 mGycm. CTDI vol(s) 70.38 mGy. Dose reduction achieved using automated exposure control Comparison: None. Findings: No acute intracranial hemorrhage or edema. No mass effect nor midline shift. Normal-sized ventricles and extra-axial CSF spaces. Normal garcía-white differentiation. Visualized orbits are unremarkable. There is ethmoid, maxillary, and sphenoid sinus disease. The mastoids are clear. Impression: Negative for acute intracranial bleed or mass effect Sinus disease, as described The CT scanner at [facility] is accredited by the [employer] and the scans are performed using protocols designed to limit radiation exposure to as low as reasonably achievable to attain images of sufficient resolution adequate for diagnostic evaluation.
--- NOTE | 2018-11-16 12:32 | Consultation ---
Consult Note Consult Note i am asked by Dr Grace to assist the fluid management of this patient patient seen in ICU intubated On Propofol has murray examined discussed with RN waldo on tube feeding Assessment/Plan Drug overdose Respiratory failure UTI (urinary tract infection) EKG: No ischemia, ST h/o Psych disease mild anemia high Trigs Cr up to 1.4 Hydrate- Aim to correct lytes Monitor renal parameters Avoid nephrotoxics Mark Llanes MD Nov 16, 2018 12:32
[2018-11-16] MEDS: D5NS 1,000 ML IV SCH ×2 (13:22→22:35)
--- NOTE | 2018-11-16 15:46 | Diagnostic Imaging Report ---
Indication: Status post endotracheal tube repositioning Technique: One view of the chest Comparison: 3 hours earlier Findings: Interim retraction of endotracheal tube, tip now optimally position, approximately 3 cm above the sujey. Elevation of the right hemidiaphragm, left basilar atelectatic changes and possibly consolidation persists. The heart is borderline enlarged. There is some retrocardiac consolidation. Impression: Improved and now satisfactory position of endotracheal tube Other findings as noted
--- NOTE | 2018-11-16 16:02 | Cardiology Report ---
APPROVED REPORT EKG Measurement Heart [id number] MI [id number] Sinus tachycardia Left axis deviation Pulmonary disease pattern Abnormal ECG
[2018-11-16] MEDS: Midazolam/D5W 100ml 100 ML IVPB SCH (20:00)
--- NOTE | 2018-11-16 22:14 | Pulmonolgy Critical Care Note ---
Critical Care - Asmt/Plan Assessment/Plan: Pulmonary CCM Consultation HPI Patient admitted after an overdose. The patient allegedly took a Seroquel and Celexa. They're unable to ascertain what time. There were multiple tablets that were taken. The patient [facility] to [facility]. Please decreasing mentation on the way into the hospital. An EKG didn't had sinus tachycardia. The patient states he took the pills 2 hours ago and wanted to kill himself. On AC VC RR 22 Started on Ceftriaxone/Flagyl for UTI/Aspiration Pneumonia Seizure today - Neurology following, CT negative/EEG pending On NG tube feeding Allergies: No Known Allergies (Unverified , 11/14/18) Past Medical History: none noted Physical Exam Vital Signs Noted General Appearance: non-toxic, sedated, eyes closed localizes pain vocalizes Head: normocephalic, atraumatic Eyes: bilateral eye PERRL, bilateral eye Scleral Injection ENT: moist mucus membranes Neck: supple Respiratory: chest non-tender, lungs clear, normal breath sounds Cardiovascular #1: tachycardia, HS1, HS2 RRR Abdomen: SNTND Extremities: No edema, no rashes [employer]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, PEERL, no seizures, no focal sign, purposeful to pain Impression: Drug overdose Respiratory failure Seizure UTI (urinary tract infection) EKG: No ischemia, ST Plan AC Ativan/Fentanyl PRN Elevated TG - Propofol not used Monitor labs/ABG NPO Aspiration precautions Cardiac Monitoring Continue Ceftriaxone/Flagyl Psychiatry following Await EEG Wean to extubate in AM if stable, hold feeds at 04:00 Laboratory Tests Test 11/14/18 16:40 11/14/18 18:48 Urine Color Viviana Urine Appearance Clear Urine pH 6.5 (4.5-8.0) Urine Specific [place] 1.015 (1.005-1.035) Urine Protein 1+ (NEGATIVE) H Urine Glucose (UA) Negative (NEGATIVE) Urine Ketones Negative (NEGATIVE) Urine Blood 1+ (NEGATIVE) H Urine Nitrite Negative (NEGATIVE) Urine Bilirubin Negative (NEGATIVE) Urine Ictotest Negative (NEGATIVE) Urine Urobilinogen Normal MG/DL (0.0-1.0) Urine Leukocyte Esterase 1+ (NEGATIVE) H Urine RBC 0-2 /HPF (0 - 0) H Urine WBC 10-15 /HPF (0 - 0) H Urine Squamous Epithelial Cells Occasional /LPF Urine Amorphous Sediment Moderate /LPF (NONE) H Urine Bacteria Few /HPF (NONE) Arterial Blood pH 7.298 (7.350-7.450) Arterial Blood Partial Pressure CO2 52.3 mmHg (35.0-45.0) H Arterial Blood Partial Pressure O2 62.5 mmHg (75.0-100.0) L Arterial Blood HCO3 25.0 mmol/L (22.0-26.0) Arterial Blood Oxygen Saturation 89.7 % (95-100) *L Arterial Blood Base Excess -2.1 (-2-2) L Derek Test Positive Sodium Level 137 MMOL/L (136-145) Potassium Level 3.4 MMOL/L (3.5-5.1) L Chloride Level 99 MMOL/L (98-107) Carbon Dioxide Level 27 MMOL/L (21-32) Anion Gap 11 mmol/L (5-15) Blood Urea Nitrogen 17 mg/dL (7-18) Creatinine 1.0 MG/DL (0.55-1.30) Estimate Glomerular Filtration Rate > 60 mL/min (>60) Glucose Level 152 MG/DL (74-106) H Calcium Level 9.2 MG/DL (8.5-10.1) Total Bilirubin 0.4 MG/DL (0.2-1.0) Aspartate Amino Transferase (AST) 22 U/L (15-37) Alanine Aminotransferase (ALT) 46 U/L (12-78) Alkaline Phosphatase 99 U/L (46-116) Total Creatine Kinase 53 U/L (26-308) Troponin I 0.000 ng/mL (0.000-0.056) Total Protein 8.8 G/DL (6.4-8.2) H Albumin 4.0 G/DL (3.4-5.0) Globulin 4.8 g/dL Albumin/Globulin Ratio 0.8 (1.0-2.7) L Salicylates Level 1.7 ug/mL (2.8-20) L Urine Opiates Screen Negative (NEGATIVE) Acetaminophen Level < 2 MCG/ML (10-30) L Urine Barbiturates Screen Negative (NEGATIVE) Phencyclidine (PCP) Screen Negative (NEGATIVE) Urine Amphetamines Screen Negative (NEGATIVE) Urine Benzodiazepines Screen Negative (NEGATIVE) Urine Cocaine Screen Negative (NEGATIVE) Urine Marijuana (THC) Screen Negative (NEGATIVE) Serum Alcohol < 3 mg/dL White Blood Count 9.8 K/UL (4.8-10.8) Red Blood Count 5.33 M/UL (4.70-6.10) Hemoglobin 10.5 G/DL (14.2-18.0) L Hematocrit 34.8 % (42.0-52.0) L Mean Corpuscular Volume 65 FL (80-99) L Mean Corpuscular Hemoglobin 19.6 PG (27.0-31.0) L Mean Corpuscular Hemoglobin Concent 30.0 G/DL (32.0-36.0) L Red Cell Distribution Width 15.1 % (11.6-14.8) H Platelet Count 150 K/UL (150-450) Mean Platelet Volume 8.1 FL (6.5-10.1) Neutrophils (%) (Auto) 81.1 % (45.0-75.0) H Lymphocytes (%) (Auto) 11.4 % (20.0-45.0) L Monocytes (%) (Auto) 6.4 % (1.0-10.0) Eosinophils (%) (Auto) 0.5 % (0.0-3.0) Basophils (%) (Auto) 0.7 % (0.0-2.0) Rhythm Strip Diag. Results EP Interpretation: yes Rhythm: no PVC's, no ectopy, other - ST Chest X-Ray Diagnostic Results Chest X-Ray Diagnostic Results : Chest X-Ray Ordered: Yes # of Views/Limited/Complete: 1 View Indication: Other EP Interpretation: Yes Interpretation: no consolidation, no effusion, no pneumothorax, other - poor inspiration Critical Care - Objective Last 24 Hour Vital Signs Date Time Temp Pulse Resp B/P (MAP) Pulse Ox O2 Delivery O2 Flow Rate FiO2 11/16/18 22:08 69 22 40 11/16/18 21:30 74 22 142/90 (107) 98 11/16/18 21:00 22 Mechanical Ventilator 40 11/16/18 21:00 75 22 139/92 (108) 97 11/16/18 20:30 75 22 152/95 (114) 98 11/16/18 20:00 71 11/16/18 20:00 40 11/16/18 20:00 Mechanical Ventilator 11/16/18 20:00 22 Mechanical Ventilator 40 12/18/18 20:00 99.9 74 22 144/97 (113) 98 18 19:53 81 22 40 18 19:15 22 Mechanical Ventilator 50 11/16/18 19:00 78 23 140/89 (106) 100 18 19:00 22 Mechanical Ventilator 40 18 18:30 77 22 145/102 (116) 100 18 18:00 22 Mechanical Ventilator 40 18 18:00 76 23 147/97 (114) 97 18 17:30 75 22 152/98 (116) 99 18 17:28 72 22 40 18 17:00 71 22 130/11 (50) 98 18 17:00 22 Mechanical Ventilator 40 11/16/18 16:30 70 22 146/94 (111) 98 11/16/18 16:00 Mechanical Ventilator 11/16/18 16:00 40 11/16/18 16:00 22 Mechanical Ventilator 40 11/16/18 16:00 81 11/16/18 16:00 99.3 71 22 145/96 (112) 98 18 15:30 72 22 139/92 (108) 98 18 15:08 71 22 40 18 15:00 72 22 136/100 (112) 97 11/16/18 15:00 22 Mechanical Ventilator 40 18 14:30 73 22 141/96 (111) 97 18 14:00 75 22 144/82 (102) 97 11/16/18 14:00 22 Mechanical Ventilator 40 11/16/18 13:30 76 22 143/84 (103) 97 18 13:22 74 22 40 18 13:00 79 22 139/85 (103) 97 18 13:00 22 Mechanical Ventilator 40 11/16/18 12:00 Mechanical Ventilator 11/16/18 12:00 40 11/16/18 12:00 100.2 81 22 135/78 (97) 96 11/16/18 12:00 81 18 12:00 22 Mechanical Ventilator 40 18 11:30 22 Mechanical Ventilator 40 11/16/18 11:30 80 22 137/83 (101) 96 12/18/18 11:29 22 Mechanical Ventilator 40 18 11:04 85 22 40 18 11:00 77 22 128/86 (100) 97 18 11:00 22 Mechanical Ventilator 40 18 10:30 78 22 131/94 (106) 97 18 10:00 22 Mechanical Ventilator 40 18 10:00 77 22 127/92 (104) 97 18 09:30 78 23 131/81 (98) 97 18 09:00 24 Mechanical Ventilator 40 18 09:00 79 23 121/81 (94) 97 18 08:31 82 24 40 11/16/18 08:30 80 23 116/72 (87) 96 11/16/18 08:00 Mechanical Ventilator 11/16/18 08:00 24 Mechanical Ventilator 40 11/16/18 08:00 85 11/16/18 08:00 40 11/16/18 08:00 99.5 83 21 118/71 (87) 95 11/16/18 07:30 90 23 121/76 (91) 94 11/16/18 07:00 91 24 125/74 (91) 95 18 07:00 4 Mechanical Ventilator 40 11/16/18 06:51 92 24 40 18 06:30 93 23 127/74 (91) 95 18 06:00 89 23 115/87 (96) 97 11/16/18 06:00 24 Mechanical Ventilator 40 11/16/18 05:30 80 23 125/80 (95) 97 18 05:00 24 Mechanical Ventilator 40 18 05:00 80 23 120/80 (93) 97 18 04:52 78 24 40 18 04:30 78 23 125/57 (79) 97 11/16/18 04:00 Mechanical Ventilator 11/16/18 04:00 40 11/16/18 04:00 99.7 81 23 115/81 (92) 96 18 04:00 78 11/16/18 04:00 24 Mechanical Ventilator 40 11/16/18 03:30 81 23 112/78 (89) 95 11/16/18 03:00 77 24 113/72 (86) 95 11/16/18 03:00 24 Mechanical Ventilator 40 11/16/18 02:56 73 24 40 11/16/18 02:30 73 24 108/68 (81) 96 11/16/18 02:00 Mechanical Ventilator 40 11/16/18 02:00 74 24 106/65 (79) 95 11/16/18 01:30 78 24 106/61 (76) 94 11/16/18 01:00 80 24 106/63 (77) 95 11/16/18 01:00 24 Mechanical Ventilator 40 11/16/18 00:30 72 24 40 11/16/18 00:30 77 24 109/63 (78) 97 11/16/18 00:00 69 11/16/18 00:00 100.0 73 24 99/63 (75) 97 11/16/18 00:00 Mechanical Ventilator 11/16/18 00:00 24 Mechanical Ventilator 40 11/16/18 00:00 40 11/15/18 23:30 71 24 96/61 (73) 97 11/15/18 23:00 71 24 93/62 (72) 98 11/15/18 23:00 Mechanical Ventilator 50 11/15/18 22:53 71 24 40 11/15/18 22:30 71 24 89/59 (69) 96 Micro: Microbiology Date/Time Source Procedure Growth Status 11/14/18 17:14 Nasal Nares MRSA Culture - Final NO METHICILLIN RESISTANT STAPH AUREUS... Complete 11/14/18 16:40 Urine,Clean Catch Urine Culture - Preliminary NO GROWTH AFTER 24 HOURS Resulted 11/14/18 17:14 Rectum VRE Culture - Final NO VANCOMYCIN RESISTANT ENTEROCOCCUS ... Complete 11/14/18 17:14 Rectum - Final NO CARBAPENEM-RESISTANT ENTEROBACTERI... Complete Critical Care - Subjective ROS Limited/Unobtainable: Yes IV Access: peripheral EKG Rhythm: Sinus Rhythm FI02: 40 Vent Support Breath Rate: 22 Vent Support Mode: AC Vent Tidal Volume: 500 Sputum Amount: Small PEEP: 5.0 PIP: 28 Tube Feeding Amount: 30 I&O: Intake and Output 11/15/18 11/16/18 18:59 06:59 Intake Total 1791.335 ml 2454.0 ml Output Total 1050 ml 830 ml Balance 741.335 ml 1624.0 ml Free Water 800 ml IV Total 1791.335 ml 1654.0 ml Output Urine Total 1050 ml 830 ml ET-Tube: 7.5 ET Position: 22 Kwame Gandara MD Nov 16, 2018 22:14
--- NOTE | 2018-11-16 22:20 | Neurology Progress Note ---
Interim History Interim History Interim History Mr. Grace feels better. He has woken up. The mind is clear. He is able to communicate well. His strength is excellent. His mood is fair. He denies any new neurologic symptoms. Review of Systems Neuro Review of Systems Benign. Objective Physical Exam Last Vital Signs Date Time Temp Pulse Resp B/P (MAP) Pulse Ox O2 Delivery O2 Flow Rate FiO2 11/16/18 21:30 74 22 142/90 (107) 98 11/16/18 21:00 Mechanical Ventilator 40 11/16/18 20:00 99.9 11/14/18 16:30 2.0 Laboratory Tests Test 11/16/18 08:35 11/16/18 09:30 11/16/18 13:15 11/16/18 14:25 Arterial Blood pH 7.475 (7.350-7.450) 7.482 (7.350-7.450) Arterial Blood Partial Pressure CO2 30.6 mmHg (35.0-45.0) L 33.0 mmHg (35.0-45.0) L Arterial Blood Partial Pressure O2 71.9 mmHg (75.0-100.0) L 78.1 mmHg (75.0-100.0) Arterial Blood HCO3 22.0 mmol/L (22.0-26.0) 24.1 mmol/L (22.0-26.0) Arterial Blood Oxygen Saturation 94.7 % (95-100) L 95.9 % (95-100) Arterial Blood Base Excess -0.7 (-2-2) 1.2 (-2-2) Derek Test Positive Positive White Blood Count 8.8 K/UL (4.8-10.8) Red Blood Count 6.30 M/UL (4.70-6.10) H Hemoglobin 12.3 G/DL (14.2-18.0) L Hematocrit 40.5 % (42.0-52.0) L Mean Corpuscular Volume 64 FL (80-99) L Mean Corpuscular Hemoglobin 19.4 PG (27.0-31.0) L Mean Corpuscular Hemoglobin Concent 30.3 G/DL (32.0-36.0) L Red Cell Distribution Width 15.0 % (11.6-14.8) H Platelet Count 181 K/UL (150-450) Mean Platelet Volume 7.7 FL (6.5-10.1) Neutrophils (%) (Auto) 69.2 % (45.0-75.0) Lymphocytes (%) (Auto) 19.1 % (20.0-45.0) L Monocytes (%) (Auto) 9.8 % (1.0-10.0) Eosinophils (%) (Auto) 1.1 % (0.0-3.0) Basophils (%) (Auto) 0.8 % (0.0-2.0) Sodium Level 140 MMOL/L (136-145) Potassium Level 3.2 MMOL/L (3.5-5.1) L Chloride Level 106 MMOL/L (98-107) Carbon Dioxide Level 25 MMOL/L (21-32) Anion Gap 10 mmol/L (5-15) Blood Urea Nitrogen 9 mg/dL (7-18) Creatinine 1.4 MG/DL (0.55-1.30) H Estimat Glomerular Filtration Rate 54.1 mL/min (>60) Glucose Level 105 MG/DL (74-106) Calcium Level 8.4 MG/DL (8.5-10.1) L Magnesium Level 1.8 MG/DL (1.8-2.4) Total Bilirubin 0.4 MG/DL (0.2-1.0) Aspartate Amino Transf (AST/SGOT) 22 U/L (15-37) Alanine Aminotransferase (ALT/SGPT) 31 U/L (12-78) Alkaline Phosphatase 76 U/L (46-116) C-Reactive Protein, Quantitative 7.6 mg/dL (0.00-0.90) H Total Protein 6.7 G/DL (6.4-8.2) Albumin 3.0 G/DL (3.4-5.0) L Globulin 3.7 g/dL Albumin/Globulin Ratio 0.8 (1.0-2.7) L Lactic Acid Level 1.80 mmol/L (0.4-2.0) Ammonia 26 umol/L (11-32) Neurologic Exam Objective PHYSICAL EXAMINATION: GENERAL: He is a well-developed and well-nourished slightly obese gentleman, lying in an ICU bed, connected to a ventilator via an orotracheal tube. HEAD: Head is normocephalic and atraumatic. EENT: Examination benign. NECK: No neck rigidity was observed. NEUROLOGICAL EXAMINATION: MENTAL STATUS EXAMINATION: He was awake but not completely alert. He was oriented to self, [facility] and October 2018. He was able to follow commands perfectly. SPEECH: He was able to mouth words well. LANGUAGE: He was able to communicate well. CRANIAL NERVE EXAMINATION: II: He was able to count fingers. III, IV & : The external ocular movements were full and the pupils were 3 mm in diameter, equal, round, regular, and reactive to light. V & VII: The corneal reflexes were present and equal bilaterally. VIII: He was able to hear well and had no nystagmus. IX & X: The gag reflex was present on manipulating the endotracheal tube. XI: The sternocleidomastoids and trapezii did function. XII: He protruded his tongue on command.. MOTOR SYSTEM: The tone was normal in all four extremities. Examination of muscle mass revealed no focal wasting. Examination of power revealed G 5/5 power. SENSORY EXAMINATION: He was able to localize light touch. REFLEXES: 2+ and bilaterally symmetrical at the biceps, triceps, brachioradialis, and knees and 1+ at both ankles. The plantar responses were flexor bilaterally. COORDINATION, STANCE & GAIT: Could not be tested. Impression/Recommendations Diagnostic Impression 1. Mr. Nabil Grace is a 48-year-old, gentleman, of unknown handedness, who does have a past history of bipolar affective disorder, who was hospitalized on 11/14/2018 after he overdosed on an unknown quantity of Seroquel and Celexa. He was brought into the [facility] emergency room and was placed on BiPAP. Of note is that a stomach lavage was not performed. He was then transferred to the ICU and was on BiPAP in the ICU until it was discontinued at approximately 1130 hours. At approximately 1415 hours, he was noted to have an episode of generalized clonic movements, lasting approximately 10 seconds associated with severe oxygen desaturation and worsening of his mental state. He was bagged immediately and soon afterwards he was intubated and artificially ventilated. He was then sedated with propofol and fentanyl. 2. He feels better. He has woken up. The mind is clear. He is able to communicate well. His strength is excellent. His mood is fair. He denies any new neurologic symptoms. 3. On neurological examination, at this time, he is awake but not completely alert. He is oriented to self, [facility] and October 2018. He is able to follow commands perfectly. He was able to mouth words well. He was able to communicate well. His cranial nerve function and motor function is close to normal.His reflexes are normal and symmetrical. 4. His latest laboratory data on my initial evaluation revealed that he was anemic with a hemoglobin of 13.1. His arterial blood gas following the event revealed a pH of 7.29, a pCO2 of 48, a pO2 of 76, and a bicarbonate of 22.5. His chemistry panel revealed a BUN elevated at 19 and low calcium at 8.3. His urinalysis revealed 1+ leukocyte esterase, 0-2 RBCs, and 10-15 WBCs per high- power field. His urine toxicology screen was negative. 5. The Brain CT done on 11/16/18 was normal. 6. It is unclear if the episode of abnormal clonic movements was due to a hypoxic event or a true seizure. Recommendations 1. Continue present management. 2. Wean off ventilator ABBY. 3. Will review EEG. 4. At this point in time, no antiseizure medicine will be started. 5. If the patient does have a recurrent seizure that lasts for more than 2 minutes, then it should be treated with intravenous Ativan in a dose of 2 mg. 6. The patient should be observed closely in an ICU with adequate support of his cardiorespiratory function. Lázaro Hale M.D., M.S.P.H. Lázaro Hale MD Nov 16, 2018 22:20
[2018-11-17] VITALS (29 sets, daily range): BP systolic 117–153; BP diastolic 81–94
--- NOTE | 2018-11-17 00:09 | General Progress Note ---
Assessment/Plan Problem List: (1) encephalopathy due to toxin (2) Drug overdose ICD Codes: T50.901A - Poisoning by unspecified drugs, medicaments and biological substances, accidental (unintentional), initial encounter SNOMED: 64504391 Qualifiers: Qualified Codes: T50.902A - Poisoning by unspecified drugs, medicaments and biological substances, intentional self-harm, initial encounter Assessment/Plan dc ceftriaxone bipap as needed increase ativan prn to 1mg IM q2hr cont to monitor Subjective Date patient seen: Nov 16, 2018 Neurologic/Psychiatric: Reports: anxiety Allergies: Coded Allergies: No Known Allergies (Unverified , 11/14/18) UNABLE TO ASSESS (Unverified , 04/10/17) Patient stated that he is allergic to some antibiotics but unable to provide the name Subjective agitation Objective Last 24 Hour Vital Signs Date Time Temp Pulse Resp B/P (MAP) Pulse Ox O2 Delivery O2 Flow Rate FiO2 11/16/18 23:10 61 22 40 11/16/18 22:08 69 22 40 11/16/18 22:00 22 Mechanical Ventilator 40 11/16/18 21:30 74 22 142/90 (107) 98 11/16/18 21:00 22 Mechanical Ventilator 40 11/16/18 21:00 75 22 139/92 (108) 97 11/16/18 20:30 75 22 152/95 (114) 98 11/16/18 20:00 71 11/16/18 20:00 40 11/16/18 20:00 Mechanical Ventilator 11/16/18 20:00 22 Mechanical Ventilator 40 11/16/18 20:00 99.9 74 22 144/97 (113) 98 11/16/18 19:53 81 22 40 11/16/18 19:15 22 Mechanical Ventilator 50 11/16/18 19:00 78 23 140/89 (106) 100 11/16/18 19:00 22 Mechanical Ventilator 40 11/16/18 18:30 77 22 145/102 (116) 100 11/16/18 18:00 22 Mechanical Ventilator 40 11/16/18 18:00 76 23 147/97 (114) 97 11/16/18 17:30 75 22 152/98 (116) 99 11/16/18 17:28 72 22 40 11/16/18 17:00 71 22 130/11 (50) 98 12/18/18 17:00 22 Mechanical Ventilator 40 18 16:30 70 22 146/94 (111) 98 18 16:00 Mechanical Ventilator 11/16/18 16:00 40 18 16:00 22 Mechanical Ventilator 40 18 16:00 81 11/16/18 16:00 99.3 71 22 145/96 (112) 98 18 15:30 72 22 139/92 (108) 98 18 15:08 71 22 40 18 15:00 72 22 136/100 (112) 97 18 15:00 22 Mechanical Ventilator 40 11/16/18 14:30 73 22 141/96 (111) 97 11/16/18 14:00 75 22 144/82 (102) 97 11/16/18 14:00 22 Mechanical Ventilator 40 11/16/18 13:30 76 22 143/84 (103) 97 11/16/18 13:22 74 22 40 11/16/18 13:00 79 22 139/85 (103) 97 11/16/18 13:00 22 Mechanical Ventilator 40 11/16/18 12:00 Mechanical Ventilator 11/16/18 12:00 40 11/16/18 12:00 100.2 81 22 135/78 (97) 96 11/16/18 12:00 81 11/16/18 12:00 22 Mechanical Ventilator 40 11/16/18 11:30 22 Mechanical Ventilator 40 11/16/18 11:30 80 22 137/83 (101) 96 11/16/18 11:29 22 Mechanical Ventilator 40 11/16/18 11:04 85 22 40 11/16/18 11:00 77 22 128/86 (100) 97 18 11:00 22 Mechanical Ventilator 40 11/16/18 10:30 78 22 131/94 (106) 97 11/16/18 10:00 22 Mechanical Ventilator 40 11/16/18 10:00 77 22 127/92 (104) 97 11/16/18 09:30 78 23 131/81 (98) 97 11/16/18 09:00 24 Mechanical Ventilator 40 11/16/18 09:00 79 23 121/81 (94) 97 11/16/18 08:31 82 24 40 11/16/18 08:30 80 23 116/72 (87) 96 11/16/18 08:00 Mechanical Ventilator 11/16/18 08:00 24 Mechanical Ventilator 40 11/16/18 08:00 85 11/16/18 08:00 40 11/16/18 08:00 99.5 83 21 118/71 (87) 95 11/16/18 07:30 90 23 121/76 (91) 94 11/16/18 07:00 91 24 125/74 (91) 95 11/16/18 07:00 4 Mechanical Ventilator 40 11/16/18 06:51 92 24 40 11/16/18 06:30 93 23 127/74 (91) 95 11/16/18 06:00 89 23 115/87 (96) 97 11/16/18 06:00 24 Mechanical Ventilator 40 11/16/18 05:30 80 23 125/80 (95) 97 11/16/18 05:00 24 Mechanical Ventilator 40 11/16/18 05:00 80 23 120/80 (93) 97 11/16/18 04:52 78 24 40 11/16/18 04:30 78 23 125/57 (79) 97 11/16/18 04:00 Mechanical Ventilator 11/16/18 04:00 40 11/16/18 04:00 99.7 81 23 115/81 (92) 96 11/16/18 04:00 78 11/16/18 04:00 24 Mechanical Ventilator 40 11/16/18 03:30 81 23 112/78 (89) 95 11/16/18 03:00 77 24 113/72 (86) 95 11/16/18 03:00 24 Mechanical Ventilator 40 11/16/18 02:56 73 24 40 11/16/18 02:30 73 24 108/68 (81) 96 11/16/18 02:00 Mechanical Ventilator 40 11/16/18 02:00 74 24 106/65 (79) 95 11/16/18 01:30 78 24 106/61 (76) 94 11/16/18 01:00 80 24 106/63 (77) 95 11/16/18 01:00 24 Mechanical Ventilator 40 11/16/18 00:30 72 24 40 11/16/18 00:30 77 24 109/63 (78) 97 Intake and Output 11/16/18 11/17/18 19:00 07:00 Intake Total 2485 ml 546.5 ml Output Total 815 ml 160 ml Balance 1670 ml 386.5 ml Free Water 40 ml IV Total 2365 ml 436.5 ml Tube Feeding 60 ml 110 ml Other 20 ml Output Urine Total 815 ml 160 ml Laboratory Tests 11/16/18 08:35: Arterial Blood pH 7.475H, Arterial Blood Partial Pressure CO2 30.6L, Arterial Blood Partial Pressure O2 71.9L, Arterial Blood HCO3 22.0, Arterial Blood Oxygen Saturation 94.7L, Arterial Blood Base Excess -0.7, Derek Test Positive 11/16/18 09:30: White Blood Count 8.8, Red Blood Count 6.30H, Hemoglobin 12.3L, Hematocrit 40.5L , Mean Corpuscular Volume 64L, Mean Corpuscular Hemoglobin 19.4L, Mean Corpuscular Hemoglobin Concent 30.3L, Red Cell Distribution Width 15.0H, Platelet Count 181, Mean Platelet Volume 7.7, Neutrophils (%) (Auto) 69.2, Lymphocytes (%) (Auto) 19.1L, Monocytes (%) (Auto) 9.8, Eosinophils (%) (Auto) 1.1, Basophils (%) (Auto) 0.8, Sodium Level 140, Potassium Level 3.2L, Chloride Level 106, Carbon Dioxide Level 25, Anion Gap 10, Blood Urea Nitrogen 9, Creatinine 1.4H, Estimat Glomerular Filtration Rate 54.1, Glucose Level 105, Calcium Level 8.4L, Magnesium Level 1.8, Total Bilirubin 0.4, Aspartate Amino Transf (AST/SGOT) 22, Alanine Aminotransferase (ALT/SGPT) 31, Alkaline Phosphatase 76, C-Reactive Protein, Quantitative 7.6H, Total Protein 6.7, Albumin 3.0L, Globulin 3.7, Albumin/Globulin Ratio 0.8L 11/16/18 13:15: Lactic Acid Level 1.80, Ammonia 26 11/16/18 14:25: Arterial Blood pH 7.482H, Arterial Blood Partial Pressure CO2 33.0L, Arterial Blood Partial Pressure O2 78.1, Arterial Blood HCO3 24.1, Arterial Blood Oxygen Saturation 95.9, Arterial Blood Base Excess 1.2, Derek Test Positive Height (Feet): 5 Height (Inches): 6.00 Weight (Pounds): 201 General Appearance: no apparent distress, lethargic, agitated Farhadi,Pantea MD Nov 17, 2018 00:09
--- NOTE | 2018-11-17 01:30 | Electroencephalogram ---
REQUESTING PHYSICIAN: Kwame Gandara M.D. READING PHYSICIAN: Lázaro Hale M.D. ELECTROENCEPHALOGRAM DATE OF TRACIN11/16/2018 HISTORY: This EEG was performed on a 48-year-old gentleman, who has a long history of bipolar affective disorder, who came in with an overdose of antidepressant drugs. He was then noted to have a possible seizure. The purpose of this EEG was to evaluate the patient for the degree and type of cerebral dysfunction and to exclude ongoing ictal or interictal phenomena. TECHNICAL NOTE: This EEG was performed on a [employer] with electrodes placed on the scalp according to the International 10-20 system. [id number] and [id number] montages were used. The EEG was technically satisfactory and was performed in the awake and drowsy states. OBSERVATIONS: In the best awake state, the background activity consisted predominantly of 7-7.5 Hz theta activity with some intermixed faster 8.5-9 Hz alpha activity. Drowsiness was characterized by slowing of the background in the 4-6 Hz theta range. No focal abnormalities or epileptiform discharges were seen. IMPRESSION: This is an abnormal EEG characterized by a background predominantly in the 7-7.5 hertz theta range with some intermixed 8.5-9 Hz alpha activity seen during the awake state. COMMENT: This study is consistent with an encephalopathy of a mild degree. Please note that no interictal discharges were seen on this EEG. Lázaro Hale M.D., M.S.P.H. DR: CARMELO JOB#: [id number]
[2018-11-17 05:36] LABS: BASOPHILS % (AUTO) 1.2 % (0.0-2.0); EOSINOPHILS % (AUTO) 3.1 % (0.0-3.0); HEMATOCRIT 39.4 % (42.0-52.0); HEMOGLOBIN 11.9 G/DL (14.2-18.0); LYMPHOCYTES % (AUTO) 14.1 % (20.0-45.0); MEAN CORPUSCULAR VOLUME 66 FL (80-99); MONOCYTES % (AUTO) 9.4 % (1.0-10.0); NEUTROPHILS % (AUTO) 72.3 % (45.0-75.0); PLATELET COUNT 157 K/UL (150-450); RED BLOOD COUNT 5.94 M/UL (4.70-6.10); RED CELL DISTRIBUTION WIDTH 14.8 % (11.6-14.8); WHITE BLOOD COUNT 7.9 K/UL (4.8-10.8)
[2018-11-17 06:13] LABS: AMMONIA 27 umol/L (11-32)
[2018-11-17 06:56] LABS: ALANINE AMINOTRANSFERASE 29 U/L (12-78); ALBUMIN 2.9 G/DL (3.4-5.0); ALBUMIN/GLOBULIN RATIO 0.7 (1.0-2.7); ALKALINE PHOSPHATASE 76 U/L (46-116); ANION GAP 9 mmol/L (5-15); ASPARTATE AMINO TRANSFERASE 25 U/L (15-37); BILIRUBIN,TOTAL 0.3 MG/DL (0.2-1.0); BLOOD UREA NITROGEN 7 mg/dL (7-18); CALCIUM 8.1 MG/DL (8.5-10.1); CARBON DIOXIDE 24 MMOL/L (21-32); CHLORIDE 104 MMOL/L (98-107); CHOLESTEROL 135 MG/DL (< 200); CREATINE KINASE 786 U/L (26-308); CREATININE 1.2 MG/DL (0.55-1.30); FERRITIN 140 NG/ML (8-388); GAMMA GLUTAMYL TRANSPEPTIDASE 42 U/L (5-85); HDL CHOLESTEROL 32 MG/DL (40-60); PHOSPHORUS 2.2 MG/DL (2.5-4.9); POTASSIUM 3.6 MMOL/L (3.5-5.1); SODIUM 137 MMOL/L (136-145); TRIGLYCERIDES 322 MG/DL (30-150)
[2018-11-17 07:32] LABS: % IRON SATURATION 7 % (15-50); IRON 17 ug/dL (50-175); TOTAL IRON BINDING CAPACITY 243 ug/dL (250-450)
--- NOTE | 2018-11-17 07:45 | Cardiology Report ---
APPROVED REPORT EKG Measurement Heart [id number] Sinus tachycardia Possible Left atrial enlargement Left anterior fascicular block Possible Anterior infarct, age undetermined Abnormal ECG
[2018-11-17] MEDS: Pantoprazole Inj IVP SCH (08:36)
[2018-11-17] MEDS: Heparin 5000 units/ml inj SUBQ SCH ×2 (08:37→20:57)
[2018-11-17] MEDS: D5NS 1,000 ML IV SCH ×2 (08:38→17:54)
[2018-11-17] MEDS ORDERED: Cefepime HCl 1 GM in D5W 55 ML IVPB SCH (09:00)
[2018-11-17 09:40] LABS: APPEARANCE,URINE CLEAR; BILIRUBIN, URINE NEGATIVE (NEGATIVE); COLOR,URINE PALE YELLOW; GLUCOSE, URINE (UA) NEGATIVE (NEGATIVE); KETONES,URINE NEGATIVE (NEGATIVE); LEUKOCYTE ESTERASE ,URINE 2+ (NEGATIVE); NITRITE,URINE NEGATIVE (NEGATIVE); PH,URINE 5 (4.5-8.0); PROTEIN,URINE NEGATIVE (NEGATIVE); UROBILINOGEN,URINE NORMAL MG/DL (0.0-1.0)
[2018-11-17] MEDS ORDERED: Potassium Phosphate 30 MM in NS 275 ML IV SCH ×2 (10:00→15:00)
[2018-11-17] MEDS: Vancomycin 1gm in D5W 275ml IVPB SCH ×2 (11:48→22:53)
--- NOTE | 2018-11-17 12:30 | General Progress Note ---
Assessment/Plan Problem List: (1) Bipolar disorder ICD Codes: F31.9 - Bipolar disorder, unspecified SNOMED: 80747687 (2) encephalopathy due to toxin Status: stable, progressing Assessment/Plan increase Ativan prn to 1mg IM q2hr cont to monitor the pt is not at imminent dts/sto the pt was provide st Subjective Neurologic/Psychiatric: Reports: anxiety Allergies: Coded Allergies: No Known Allergies (Unverified , 11/14/18) UNABLE TO ASSESS (Unverified , 04/10/17) Patient stated that he is allergic to some antibiotics but unable to provide the name Subjective no agitation the pt is still on life support and now is aaox4. the pt denied suicidal thoughts/he is not anxious. Objective Last 24 Hour Vital Signs Date Time Temp Pulse Resp B/P (MAP) Pulse Ox O2 Delivery O2 Flow Rate FiO2 11/17/18 11:55 77 11/17/18 11:00 77 20 148/91 (110) 98 11/17/18 10:59 78 22 50 11/17/18 10:00 81 20 148/90 (109) 98 11/17/18 09:06 100.1 11/17/18 09:00 100.2 88 22 141/88 (105) 91 11/17/18 08:56 88 22 50 11/17/18 08:03 93 11/17/18 08:00 97 11/17/18 08:00 101.5 100 19 144/88 (106) 91 11/17/18 08:00 Mechanical Ventilator 11/17/18 08:00 40 11/17/18 07:59 50 11/17/18 07:35 50 11/17/18 07:30 40 11/17/18 07:15 97 26 40 11/17/18 07:00 109 19 143/87 (105) 91 11/17/18 06:30 40 11/17/18 06:00 40 11/17/18 06:00 75 19 146/90 (108) 98 11/17/18 05:28 73 22 40 11/17/18 05:00 78 24 153/88 (109) 98 11/17/18 04:00 98.9 83 24 138/88 (105) 97 11/17/18 04:00 75 11/17/18 04:00 40 11/17/18 04:00 Mechanical Ventilator 11/17/18 03:30 71 22 117/90 (99) 98 18 03:26 67 22 40 18 03:00 66 22 141/94 (110) 98 11/17/18 03:00 Mechanical Ventilator 40 11/17/18 02:30 67 22 133/87 (102) 97 11/17/18 02:00 68 22 136/89 (105) 97 11/17/18 02:00 22 Mechanical Ventilator 40 11/17/18 01:30 70 22 130/87 (101) 98 18 01:18 67 22 40 11/17/18 01:00 68 22 130/87 (101) 99 11/17/18 01:00 12 Mechanical Ventilator 40 11/17/18 00:30 66 22 134/87 (103) 99 11/17/18 00:00 99.2 64 22 134/90 (105) 98 11/17/18 00:00 40 11/17/18 00:00 65 11/17/18 00:00 Mechanical Ventilator 11/17/18 00:00 24 Mechanical Ventilator 40 11/16/18 23:30 63 22 132/89 (103) 99 11/16/18 23:10 61 22 40 18 23:00 64 22 133/84 (100) 98 18 23:00 22 Mechanical Ventilator 40 11/16/18 22:30 65 22 132/84 (100) 97 11/16/18 22:08 69 22 40 18 22:00 22 Mechanical Ventilator 40 11/16/18 22:00 69 22 129/91 (104) 97 18 21:30 74 22 142/90 (107) 98 18 21:00 22 Mechanical Ventilator 40 11/16/18 21:00 75 22 139/92 (108) 97 18 20:30 75 22 152/95 (114) 98 1818 20:00 71 18 20:00 40 18 20:00 Mechanical Ventilator 18 20:00 22 Mechanical Ventilator 40 11/16/18 20:00 99.9 74 22 144/97 (113) 98 18 19:53 81 22 40 18 19:15 22 Mechanical Ventilator 50 12/18/18 19:00 78 23 140/89 (106) 100 18 19:00 22 Mechanical Ventilator 40 18 18:30 77 22 145/102 (116) 100 18 18:00 22 Mechanical Ventilator 40 18 18:00 76 23 147/97 (114) 97 18 17:30 75 22 152/98 (116) 99 18 17:28 72 22 40 11/16/18 17:00 71 22 130/11 (50) 98 18 17:00 22 Mechanical Ventilator 40 11/16/18 16:30 70 22 146/94 (111) 98 11/16/18 16:00 Mechanical Ventilator 11/16/18 16:00 40 11/16/18 16:00 22 Mechanical Ventilator 40 18 16:00 81 11/16/18 16:00 99.3 71 22 145/96 (112) 98 11/16/18 15:30 72 22 139/92 (108) 98 18 15:08 71 22 40 11/16/18 15:00 72 22 136/100 (112) 97 18 15:00 22 Mechanical Ventilator 40 18 14:30 73 22 141/96 (111) 97 18 14:00 75 22 144/82 (102) 97 11/16/18 14:00 22 Mechanical Ventilator 40 11/16/18 13:30 76 22 143/84 (103) 97 18 13:22 74 22 40 11/16/18 13:00 79 22 139/85 (103) 97 11/16/18 13:00 22 Mechanical Ventilator 40 Intake and Output 11/16/1818 19:00 07:00 Intake Total 2485 ml 1704.5 ml Output Total 815 ml 580 ml Balance 1670 ml 1124.5 ml Free Water 40 ml IV Total 2365 ml 1444.5 ml Tube Feeding 60 ml 260 ml Other 20 ml Output Urine Total 815 ml 580 ml Laboratory Tests 11/16/18 13:15: Lactic Acid Level 1.80, Ammonia 26 11/16/18 14:25: Arterial Blood pH 7.482H, Arterial Blood Partial Pressure CO2 33.0L, Arterial Blood Partial Pressure O2 78.1, Arterial Blood HCO3 24.1, Arterial Blood Oxygen Saturation 95.9, Arterial Blood Base Excess 1.2, Derek Test Positive 11/17/18 05:00: Lactic Acid Level 1.20, Ammonia 27, White Blood Count 7.9, Red Blood Count 5.94 , Hemoglobin 11.9L, Hematocrit 39.4L, Mean Corpuscular Volume 66L, Mean Corpuscular Hemoglobin 20.0L, Mean Corpuscular Hemoglobin Concent 30.1L, Red Cell Distribution Width 14.8, Platelet Count 157, Mean Platelet Volume 6.4L, Neutrophils (%) (Auto) 72.3, Lymphocytes (%) (Auto) 14.1L, Monocytes (%) (Auto) 9.4, Eosinophils (%) (Auto) 3.1H, Basophils (%) (Auto) 1.2, Sodium Level 137, Potassium Level 3.6, Chloride Level 104, Carbon Dioxide Level 24, Anion Gap 9, Blood Urea Nitrogen 7, Creatinine 1.2, Estimat Glomerular Filtration Rate > 60, Glucose Level 123H, Hemoglobin A1c 6.0, Uric Acid 6.8, Calcium Level 8.1L, Phosphorus Level 2.2L, Magnesium Level 2.0, Iron Level 17L, Total Iron Binding Capacity 243L, Percent Iron Saturation 7L, Unsaturated Iron Binding 226, Ferritin 140, Total Bilirubin 0.3, Gamma Glutamyl Transpeptidase 42, Aspartate Amino Transf (AST/SGOT) 25, Alanine Aminotransferase (ALT/SGPT) 29, Alkaline Phosphatase 76, Total Creatine Kinase 786H, Troponin I 0.000, Pro-B-Type Natriuretic Peptide 20, Total Protein 7.0, Albumin 2.9L, Globulin 4.1, Albumin/ Globulin Ratio 0.7L, Triglycerides Level 322H, Cholesterol Level 135, LDL Cholesterol 64, HDL Cholesterol 32L, Cholesterol/HDL Ratio 4.2, Lipase 63L, Vitamin B12 Level 597, Folate 18.4, Thyroid Stimulating Hormone (TSH) 2.940 11/17/18 07:31: Arterial Blood pH 7.280L, Arterial Blood Partial Pressure CO2 54.9H, Arterial Blood Partial Pressure O2 68.0L, Arterial Blood HCO3 25.4, Arterial Blood Oxygen Saturation 91.5L, Arterial Blood Base Excess -2.0, Derek Test Positive 11/17/18 09:15: Urine Color Pale yellow, Urine Appearance Clear, Urine pH 5, Urine Specific [place] 1.020, Urine Protein Negative, Urine Glucose (UA) Negative, Urine Ketones Negative, Urine Blood 3+H, Urine Nitrite Negative, Urine Bilirubin Negative, Urine Urobilinogen Normal, Urine Leukocyte Esterase 2+H, Urine RBC 5- 10H, Urine WBC 5-10H, Urine Squamous Epithelial Cells Occasional, Urine Uric Acid Crystals FewH, Urine Bacteria Occasional Height (Feet): 5 Height (Inches): 6.00 Weight (Pounds): 198 General Appearance: WD/WN, no apparent distress, alert Neurologic: oriented x 3, responsive - the pt is intubate but was able to communicate Nery Chiang MD Nov 17, 2018 12:30
[2018-11-17] MEDS ORDERED: Iron Sucrose 200 MG in NS 110 ML IV SCH (14:00)
--- NOTE | 2018-11-17 16:00 | Nephrology Progress Note ---
Assessment/Plan Problem List: (1) Respiratory failure (2) UTI (urinary tract infection) (3) Drug overdose (4) Acute renal failure (5) High triglycerides Assessment Drug overdose Respiratory failure UTI (urinary tract infection) EKG: No ischemia, ST h/o Psych disease mild anemia high Trigs Cr up to 1.4 back to 1.2 Plan Hydrate- Aim to correct lytes Monitor renal parameters Avoid nephrotoxics venofer K Phos gemfibrozil Subjective ROS Limited/Unobtainable: Yes Objective Objective Last 24 Hour Vital Signs Date Time Temp Pulse Resp B/P (MAP) Pulse Ox O2 Delivery O2 Flow Rate FiO2 11/17/18 15:06 79 22 50 11/17/18 15:00 79 20 133/87 (102) 100 11/17/18 14:00 74 20 136/85 (102) 98 11/17/18 13:04 93 26 50 11/17/18 13:00 84 20 145/88 (107) 97 11/17/18 12:16 50 11/17/18 12:15 40 11/17/18 12:00 Mechanical Ventilator 11/17/18 12:00 98.9 78 20 138/92 (107) 98 11/17/18 12:00 77 11/17/18 11:55 77 11/17/18 11:00 77 20 148/91 (110) 98 11/17/18 10:59 78 22 50 11/17/18 10:00 81 20 148/90 (109) 98 11/17/18 09:06 100.1 11/17/18 09:00 100.2 88 22 141/88 (105) 91 11/17/18 08:56 88 22 50 11/17/18 08:03 93 11/17/18 08:00 97 11/17/18 08:00 101.5 100 19 144/88 (106) 91 11/17/18 08:00 Mechanical Ventilator 11/17/18 08:00 40 11/17/18 07:59 50 11/17/18 07:35 50 18 07:30 40 11/17/18 07:15 97 26 40 11/17/18 07:00 109 19 143/87 (105) 91 11/17/18 06:30 40 11/17/18 06:00 40 11/17/18 06:00 75 19 146/90 (108) 98 18 05:28 73 22 40 18 05:00 78 24 153/88 (109) 98 11/17/18 04:00 98.9 83 24 138/88 (105) 97 18 04:00 75 18 04:00 40 11/17/18 04:00 Mechanical Ventilator 11/17/18 03:30 71 22 117/90 (99) 98 18 03:26 67 22 40 11/17/18 03:00 66 22 141/94 (110) 98 11/17/18 03:00 Mechanical Ventilator 40 11/17/18 02:30 67 22 133/87 (102) 97 11/17/18 02:00 68 22 136/89 (105) 97 11/17/18 02:00 22 Mechanical Ventilator 40 11/17/18 01:30 70 22 130/87 (101) 98 11/17/18 01:18 67 22 40 11/17/18 01:00 68 22 130/87 (101) 99 11/17/18 01:00 12 Mechanical Ventilator 40 11/17/18 00:30 66 22 134/87 (103) 99 11/17/18 00:00 99.2 64 22 134/90 (105) 98 11/17/18 00:00 40 11/17/18 00:00 65 11/17/18 00:00 Mechanical Ventilator 11/17/18 00:00 24 Mechanical Ventilator 40 11/16/18 23:30 63 22 132/89 (103) 99 11/16/18 23:10 61 22 40 11/16/18 23:00 64 22 133/84 (100) 98 18 23:00 22 Mechanical Ventilator 40 18 22:30 65 22 132/84 (100) 97 18 22:08 69 22 40 18 22:00 22 Mechanical Ventilator 40 18 22:00 69 22 129/91 (104) 97 18 21:30 74 22 142/90 (107) 98 18 21:00 22 Mechanical Ventilator 40 18 21:00 75 22 139/92 (108) 97 1818 20:30 75 22 152/95 (114) 98 12/18/18 20:00 71 12/18/18 20:00 40 18 20:00 Mechanical Ventilator 11/16/18 20:00 22 Mechanical Ventilator 40 11/16/18 20:00 99.9 74 22 144/97 (113) 98 18 19:53 81 22 40 11/16/18 19:15 22 Mechanical Ventilator 50 11/16/18 19:00 78 23 140/89 (106) 100 11/16/18 19:00 22 Mechanical Ventilator 40 18 18:30 77 22 145/102 (116) 100 18 18:00 22 Mechanical Ventilator 40 18 18:00 76 23 147/97 (114) 97 11/16/18 17:30 75 22 152/98 (116) 99 11/16/18 17:28 72 22 40 11/16/18 17:00 71 22 130/11 (50) 98 11/16/18 17:00 22 Mechanical Ventilator 40 11/16/18 16:30 70 22 146/94 (111) 98 11/16/18 16:00 Mechanical Ventilator 11/16/18 16:00 40 18 16:00 22 Mechanical Ventilator 40 18 16:00 81 18 16:00 99.3 71 22 145/96 (112) 98 Intake and Output 11/16/18 11/17/18 19:00 07:00 Intake Total 2485 ml 1704.5 ml Output Total 815 ml 580 ml Balance 1670 ml 1124.5 ml Free Water 40 ml IV Total 2365 ml 1444.5 ml Tube Feeding 60 ml 260 ml Other 20 ml Output Urine Total 815 ml 580 ml Laboratory Tests 11/17/18 05:00: White Blood Count 7.9, Red Blood Count 5.94, Hemoglobin 11.9L, Hematocrit 39.4L , Mean Corpuscular Volume 66L, Mean Corpuscular Hemoglobin 20.0L, Mean Corpuscular Hemoglobin Concent 30.1L, Red Cell Distribution Width 14.8, Platelet Count 157, Mean Platelet Volume 6.4L, Neutrophils (%) (Auto) 72.3, Lymphocytes (%) (Auto) 14.1L, Monocytes (%) (Auto) 9.4, Eosinophils (%) (Auto) 3.1H, Basophils (%) (Auto) 1.2, Sodium Level 137, Potassium Level 3.6, Chloride Level 104, Carbon Dioxide Level 24, Anion Gap 9, Blood Urea Nitrogen 7, Creatinine 1.2, Estimat Glomerular Filtration Rate > 60, Glucose Level 123H, Hemoglobin A1c 6.0, Lactic Acid Level 1.20, Uric Acid 6.8, Calcium Level 8.1L, Phosphorus Level 2.2L, Magnesium Level 2.0, Iron Level 17L, Total Iron Binding Capacity 243L, Percent Iron Saturation 7L, Unsaturated Iron Binding 226, Ferritin 140, Total Bilirubin 0.3, Gamma Glutamyl Transpeptidase 42, Aspartate Amino Transf (AST/SGOT) 25, Alanine Aminotransferase (ALT/SGPT) 29, Alkaline Phosphatase 76, Ammonia 27, Total Creatine Kinase 786H, Troponin I 0.000, Pro-B- Type Natriuretic Peptide 20, Total Protein 7.0, Albumin 2.9L, Globulin 4.1, Albumin/Globulin Ratio 0.7L, Triglycerides Level 322H, Cholesterol Level 135, LDL Cholesterol 64, HDL Cholesterol 32L, Cholesterol/HDL Ratio 4.2, Lipase 63L, Vitamin B12 Level 597, Folate 18.4, Thyroid Stimulating Hormone (TSH) 2.940 11/17/18 07:31: Arterial Blood pH 7.280L, Arterial Blood Partial Pressure CO2 54.9H, Arterial Blood Partial Pressure O2 68.0L, Arterial Blood HCO3 25.4, Arterial Blood Oxygen Saturation 91.5L, Arterial Blood Base Excess -2.0, Derek Test Positive 11/17/18 09:15: Urine Color Pale yellow, Urine Appearance Clear, Urine pH 5, Urine Specific [place] 1.020, Urine Protein Negative, Urine Glucose (UA) Negative, Urine Ketones Negative, Urine Blood 3+H, Urine Nitrite Negative, Urine Bilirubin Negative, Urine Urobilinogen Normal, Urine Leukocyte Esterase 2+H, Urine RBC 5- 10H, Urine WBC 5-10H, Urine Squamous Epithelial Cells Occasional, Urine Uric Acid Crystals FewH, Urine Bacteria Occasional 11/17/18 12:45: Arterial Blood pH 7.330L, Arterial Blood Partial Pressure CO2 47.3H, Arterial Blood Partial Pressure O2 84.4, Arterial Blood HCO3 24.9, Arterial Blood Oxygen Saturation 95.7, Arterial Blood Base Excess -1.2, Derek Test Positive Height (Feet): 5 Height (Inches): 6.00 Weight (Pounds): 198 EENT: other - vented Mark Llanes MD Nov 17, 2018 16:00
--- NOTE | 2018-11-17 17:56 | Cardiology Report ---
APPROVED REPORT EKG Measurement Heart [id number] 130P25 [id number] Normal sinus rhythm Left axis deviation Nonspecific T wave abnormality Prolonged QT Abnormal ECG
--- NOTE | 2018-11-17 18:06 | Infectious Diseases Prog Note ---
Assessment/Plan Assessment/Plan Full consult dictated: A) 1) possible aspiration pna, ? uti, possible sepsis, fevers 2) drug overdose 3) pmh noted 4) allergies - nkda P) 1) vancomycin, cefepime and flagyl 2) f/u on cultures 3) monitor labs and chest x-ray 4) d/w Dr. Gandara 5) thank you Subjective Allergies: Coded Allergies: No Known Allergies (Unverified , 11/14/18) UNABLE TO ASSESS (Unverified , 04/10/17) Patient stated that he is allergic to some antibiotics but unable to provide the name Objective Vital Signs Last 24 Hour Vital Signs Date Time Temp Pulse Resp B/P (MAP) Pulse Ox O2 Delivery O2 Flow Rate FiO2 11/17/18 17:28 Venturi Mask 10.0 50 11/17/18 17:00 87 20 140/86 (104) 100 11/17/18 16:56 Venturi Mask 10.0 11/17/18 16:55 96 Venturi Mask 10.0 50 11/17/18 16:00 99.0 77 20 142/87 (105) 98 11/17/18 16:00 77 11/17/18 16:00 Mechanical Ventilator 11/17/18 15:06 79 22 50 11/17/18 15:00 79 20 133/87 (102) 100 11/17/18 14:00 74 20 136/85 (102) 98 11/17/18 13:04 93 26 50 11/17/18 13:00 84 20 145/88 (107) 97 11/17/18 12:16 50 11/17/18 12:15 40 11/17/18 12:00 Mechanical Ventilator 11/17/18 12:00 98.9 78 20 138/92 (107) 98 11/17/18 12:00 77 11/17/18 11:55 77 11/17/18 11:00 77 20 148/91 (110) 98 11/17/18 10:59 78 22 50 11/17/18 10:00 81 20 148/90 (109) 98 11/17/18 09:06 100.1 11/17/18 09:00 100.2 88 22 141/88 (105) 91 11/17/18 08:56 88 22 50 11/17/18 08:03 93 11/17/18 08:00 97 11/17/18 08:00 101.5 100 19 144/88 (106) 91 11/17/18 08:00 Mechanical Ventilator 11/17/18 08:00 40 18 07:59 50 18 07:35 50 18 07:30 40 11/17/18 07:15 97 26 40 11/17/18 07:00 109 19 143/87 (105) 91 11/17/18 06:30 40 11/17/18 06:00 40 11/17/18 06:00 75 19 146/90 (108) 98 11/17/18 05:28 73 22 40 11/17/18 05:00 78 24 153/88 (109) 98 11/17/18 04:00 98.9 83 24 138/88 (105) 97 11/17/18 04:00 75 11/17/18 04:00 40 11/17/18 04:00 Mechanical Ventilator 11/17/18 03:30 71 22 117/90 (99) 98 11/17/18 03:26 67 22 40 11/17/18 03:00 66 22 141/94 (110) 98 11/17/18 03:00 Mechanical Ventilator 40 11/17/18 02:30 67 22 133/87 (102) 97 11/17/18 02:00 68 22 136/89 (105) 97 11/17/18 02:00 22 Mechanical Ventilator 40 11/17/18 01:30 70 22 130/87 (101) 98 11/17/18 01:18 67 22 40 11/17/18 01:00 68 22 130/87 (101) 99 11/17/18 01:00 12 Mechanical Ventilator 40 11/17/18 00:30 66 22 134/87 (103) 99 11/17/18 00:00 99.2 64 22 134/90 (105) 98 11/17/18 00:00 40 11/17/18 00:00 65 11/17/18 00:00 Mechanical Ventilator 11/17/18 00:00 24 Mechanical Ventilator 40 11/16/18 23:30 63 22 132/89 (103) 99 18 23:10 61 22 40 18 23:00 64 22 133/84 (100) 98 18 23:00 22 Mechanical Ventilator 40 11/16/18 22:30 65 22 132/84 (100) 97 18 22:08 69 22 40 11/16/18 22:00 22 Mechanical Ventilator 40 11/16/18 22:00 69 22 129/91 (104) 97 18 21:30 74 22 142/90 (107) 98 11/16/18 21:00 22 Mechanical Ventilator 40 11/16/18 21:00 75 22 139/92 (108) 97 11/16/18 20:30 75 22 152/95 (114) 98 11/16/18 20:00 71 11/16/18 20:00 40 11/16/18 20:00 Mechanical Ventilator 11/16/18 20:00 22 Mechanical Ventilator 40 11/16/18 20:00 99.9 74 22 144/97 (113) 98 11/16/18 19:53 81 22 40 11/16/18 19:15 22 Mechanical Ventilator 50 11/16/18 19:00 78 23 140/89 (106) 100 11/16/18 19:00 22 Mechanical Ventilator 40 11/16/18 18:30 77 22 145/102 (116) 100 18 18:00 22 Mechanical Ventilator 40 18 18:00 76 23 147/97 (114) 97 Height (Feet): 5 Height (Inches): 6.00 Weight (Pounds): 198 Laboratory Tests Test 11/17/18 05:00 11/17/18 07:31 11/17/18 09:15 11/17/18 12:45 White Blood Count 7.9 K/UL (4.8-10.8) Red Blood Count 5.94 M/UL (4.70-6.10) Hemoglobin 11.9 G/DL (14.2-18.0) L Hematocrit 39.4 % (42.0-52.0) L Mean Corpuscular Volume 66 FL (80-99) L Mean Corpuscular Hemoglobin 20.0 PG (27.0-31.0) L Mean Corpuscular Hemoglobin Concent 30.1 G/DL (32.0-36.0) L Red Cell Distribution Width 14.8 % (11.6-14.8) Platelet Count 157 K/UL (150-450) Mean Platelet Volume 6.4 FL (6.5-10.1) L Neutrophils (%) (Auto) 72.3 % (45.0-75.0) Lymphocytes (%) (Auto) 14.1 % (20.0-45.0) L Monocytes (%) (Auto) 9.4 % (1.0-10.0) Eosinophils (%) (Auto) 3.1 % (0.0-3.0) H Basophils (%) (Auto) 1.2 % (0.0-2.0) Sodium Level 137 MMOL/L (136-145) Potassium Level 3.6 MMOL/L (3.5-5.1) Chloride Level 104 MMOL/L (98-107) Carbon Dioxide Level 24 MMOL/L (21-32) Anion Gap 9 mmol/L (5-15) Blood Urea Nitrogen 7 mg/dL (7-18) Creatinine 1.2 MG/DL (0.55-1.30) Estimat Glomerular Filtration Rate > 60 mL/min (>60) Glucose Level 123 MG/DL (74-106) H Hemoglobin A1c 6.0 % (4.3-6.0) Lactic Acid Level 1.20 mmol/L (0.4-2.0) Uric Acid 6.8 MG/DL (2.6-7.2) Calcium Level 8.1 MG/DL (8.5-10.1) L Phosphorus Level 2.2 MG/DL (2.5-4.9) L Magnesium Level 2.0 MG/DL (1.8-2.4) Iron Level 17 ug/dL (50-175) L Total Iron Binding Capacity 243 ug/dL (250-450) L Percent Iron Saturation 7 % (15-50) L Unsaturated Iron Binding 226 ug/dL (112-346) Ferritin 140 NG/ML (8-388) Total Bilirubin 0.3 MG/DL (0.2-1.0) Gamma Glutamyl Transpeptidase 42 U/L (5-85) Aspartate Amino Transf (AST/SGOT) 25 U/L (15-37) Alanine Aminotransferase (ALT/SGPT) 29 U/L (12-78) Alkaline Phosphatase 76 U/L (46-116) Ammonia 27 umol/L (11-32) Total Creatine Kinase 786 U/L (26-308) H Troponin I 0.000 ng/mL (0.000-0.056) Pro-B-Type Natriuretic Peptide 20 pg/mL (0-125) Total Protein 7.0 G/DL (6.4-8.2) Albumin 2.9 G/DL (3.4-5.0) L Globulin 4.1 g/dL Albumin/Globulin Ratio 0.7 (1.0-2.7) L Triglycerides Level 322 MG/DL (30-150) H Cholesterol Level 135 MG/DL (< 200) LDL Cholesterol 64 mg/dL (<100) HDL Cholesterol 32 MG/DL (40-60) L Cholesterol/HDL Ratio 4.2 (3.3-4.4) Lipase 63 U/L (73-393) L Vitamin B12 Level 597 PG/ML (193-986) Folate 18.4 NG/ML (8.6-58.9) Thyroid Stimulating Hormone (TSH) 2.940 uiU/mL (0.358-3.740) Arterial Blood pH 7.280 (7.350-7.450) 7.330 (7.350-7.450) Arterial Blood Partial Pressure CO2 54.9 mmHg (35.0-45.0) H 47.3 mmHg (35.0-45.0) H Arterial Blood Partial Pressure O2 68.0 mmHg (75.0-100.0) L 84.4 mmHg (75.0-100.0) Arterial Blood HCO3 25.4 mmol/L (22.0-26.0) 24.9 mmol/L (22.0-26.0) Arterial Blood Oxygen Saturation 91.5 % (95-100) L 95.7 % (95-100) Arterial Blood Base Excess -2.0 (-2-2) -1.2 (-2-2) Derek Test Positive Positive Urine Color Pale yellow Urine Appearance Clear Urine pH 5 (4.5-8.0) Urine Specific [place] 1.020 (1.005-1.035) Urine Protein Negative (NEGATIVE) Urine Glucose (UA) Negative (NEGATIVE) Urine Ketones Negative (NEGATIVE) Urine Blood 3+ (NEGATIVE) H Urine Nitrite Negative (NEGATIVE) Urine Bilirubin Negative (NEGATIVE) Urine Urobilinogen Normal MG/DL (0.0-1.0) Urine Leukocyte Esterase 2+ (NEGATIVE) H Urine RBC 5-10 /HPF (0 - 0) H Urine WBC 5-10 /HPF (0 - 0) H Urine Squamous Epithelial Cells Occasional /LPF Urine Uric Acid Crystals Few /LPF (NONE) H Urine Bacteria Occasional /HPF (NONE) Current Medications Medications (Trade) Dose Ordered Sig/Oliva Route PRN Reason Start Time Stop Time Status Last Admin Dose Admin Acetaminophen (Tylenol) 650 mg Q6H PRN ORAL Mild Pain/Temp > 100.0 11/17/18 08:30 12/17/18 08:29 11/17/18 08:36 Cefepime HCl 2 gm/ Dextrose 55 ml @ 110 mls/hr EVERY 12 HOURS IVPB 11/17/18 21:00 11/24/18 20:59 Dextrose/Sodium Chloride 1,000 ml @ 100 mls/hr Q10H IV 11/16/18 12:30 12/16/18 12:29 11/17/18 17:54 Gemfibrozil (Lopid) 600 mg TWICE A DAY NG 11/17/18 18:00 12/17/18 17:59 11/17/18 17:55 Heparin Sodium (Porcine) (Heparin 5000 units/ml) 5,000 units EVERY 12 HOURS SUBQ 11/14/18 21:00 12/14/18 20:59 11/17/18 08:37 Lorazepam (Ativan 2mg/ml 1ml) 1 mg Q2H PRN IM Agitation 11/15/18 13:00 11/22/18 12:59 11/15/18 16:24 Lorazepam (Ativan 2mg/ml 1ml) 1 mg Q6H PRN IV For Seizures 11/15/18 15:00 11/22/18 14:59 Metronidazole 100 ml @ 100 mls/hr Q8HR IVPB 11/15/18 16:00 11/22/18 15:59 11/17/18 13:40 Pantoprazole (Protonix) 40 mg DAILY IVP 11/14/18 20:30 12/14/18 20:29 11/17/18 08:36 Vancomycin HCl (Vanco rx to dose) 1 ea DAILY PRN MISC Per rx protocol 11/17/18 08:15 12/17/18 08:14 Vancomycin HCl 1 gm/Dextrose 275 ml @ 183.708 mls/hr Q12H IVPB 11/17/18 10:00 11/22/18 09:59 11/17/18 11:48 Markos Billings MD Nov 17, 2018 18:06
--- NOTE | 2018-11-17 20:24 | Neurology Progress Note ---
Interim History Interim History Interim History Mr. Grace feels much better. He has been extubated. His voice is still hoarse. He feels better with regards to his mood. He tells me that he has contemplated ending his life many times but this was the first time he made a gesture. He tells me he had a traumatic childhood and has PTSD from it leading to severe depression. The mind is clear. He is able to communicate well. His strength is excellent. He denies any neurologic symptoms. Review of Systems Neuro Review of Systems Benign. Objective Physical Exam Last Vital Signs Date Time Temp Pulse Resp B/P (MAP) Pulse Ox O2 Delivery O2 Flow Rate FiO2 11/17/18 19:03 87 22 94 Venturi Mask 10.0 50 11/17/18 19:00 150/81 (104) 11/17/18 16:00 99.0 Laboratory Tests Test 11/17/18 05:00 11/17/18 07:31 11/17/18 09:15 11/17/18 12:45 White Blood Count 7.9 K/UL (4.8-10.8) Red Blood Count 5.94 M/UL (4.70-6.10) Hemoglobin 11.9 G/DL (14.2-18.0) L Hematocrit 39.4 % (42.0-52.0) L Mean Corpuscular Volume 66 FL (80-99) L Mean Corpuscular Hemoglobin 20.0 PG (27.0-31.0) L Mean Corpuscular Hemoglobin Concent 30.1 G/DL (32.0-36.0) L Red Cell Distribution Width 14.8 % (11.6-14.8) Platelet Count 157 K/UL (150-450) Mean Platelet Volume 6.4 FL (6.5-10.1) L Neutrophils (%) (Auto) 72.3 % (45.0-75.0) Lymphocytes (%) (Auto) 14.1 % (20.0-45.0) L Monocytes (%) (Auto) 9.4 % (1.0-10.0) Eosinophils (%) (Auto) 3.1 % (0.0-3.0) H Basophils (%) (Auto) 1.2 % (0.0-2.0) Sodium Level 137 MMOL/L (136-145) Potassium Level 3.6 MMOL/L (3.5-5.1) Chloride Level 104 MMOL/L (98-107) Carbon Dioxide Level 24 MMOL/L (21-32) Anion Gap 9 mmol/L (5-15) Blood Urea Nitrogen 7 mg/dL (7-18) Creatinine 1.2 MG/DL (0.55-1.30) Estimat Glomerular Filtration Rate > 60 mL/min (>60) Glucose Level 123 MG/DL (74-106) H Hemoglobin A1c 6.0 % (4.3-6.0) Lactic Acid Level 1.20 mmol/L (0.4-2.0) Uric Acid 6.8 MG/DL (2.6-7.2) Calcium Level 8.1 MG/DL (8.5-10.1) L Phosphorus Level 2.2 MG/DL (2.5-4.9) L Magnesium Level 2.0 MG/DL (1.8-2.4) Iron Level 17 ug/dL (50-175) L Total Iron Binding Capacity 243 ug/dL (250-450) L Percent Iron Saturation 7 % (15-50) L Unsaturated Iron Binding 226 ug/dL (112-346) Ferritin 140 NG/ML (8-388) Total Bilirubin 0.3 MG/DL (0.2-1.0) Gamma Glutamyl Transpeptidase 42 U/L (5-85) Aspartate Amino Transf (AST/SGOT) 25 U/L (15-37) Alanine Aminotransferase (ALT/SGPT) 29 U/L (12-78) Alkaline Phosphatase 76 U/L (46-116) Ammonia 27 umol/L (11-32) Total Creatine Kinase 786 U/L (26-308) H Troponin I 0.000 ng/mL (0.000-0.056) Pro-B-Type Natriuretic Peptide 20 pg/mL (0-125) Total Protein 7.0 G/DL (6.4-8.2) Albumin 2.9 G/DL (3.4-5.0) L Globulin 4.1 g/dL Albumin/Globulin Ratio 0.7 (1.0-2.7) L Triglycerides Level 322 MG/DL (30-150) H Cholesterol Level 135 MG/DL (< 200) LDL Cholesterol 64 mg/dL (<100) HDL Cholesterol 32 MG/DL (40-60) L Cholesterol/HDL Ratio 4.2 (3.3-4.4) Lipase 63 U/L (73-393) L Vitamin B12 Level 597 PG/ML (193-986) Folate 18.4 NG/ML (8.6-58.9) Thyroid Stimulating Hormone (TSH) 2.940 uiU/mL (0.358-3.740) Arterial Blood pH 7.280 (7.350-7.450) 7.330 (7.350-7.450) Arterial Blood Partial Pressure CO2 54.9 mmHg (35.0-45.0) H 47.3 mmHg (35.0-45.0) H Arterial Blood Partial Pressure O2 68.0 mmHg (75.0-100.0) L 84.4 mmHg (75.0-100.0) Arterial Blood HCO3 25.4 mmol/L (22.0-26.0) 24.9 mmol/L (22.0-26.0) Arterial Blood Oxygen Saturation 91.5 % (95-100) L 95.7 % (95-100) Arterial Blood Base Excess -2.0 (-2-2) -1.2 (-2-2) Derek Test Positive Positive Urine Color Pale yellow Urine Appearance Clear Urine pH 5 (4.5-8.0) Urine Specific [place] 1.020 (1.005-1.035) Urine Protein Negative (NEGATIVE) Urine Glucose (UA) Negative (NEGATIVE) Urine Ketones Negative (NEGATIVE) Urine Blood 3+ (NEGATIVE) H Urine Nitrite Negative (NEGATIVE) Urine Bilirubin Negative (NEGATIVE) Urine Urobilinogen Normal MG/DL (0.0-1.0) Urine Leukocyte Esterase 2+ (NEGATIVE) H Urine RBC 5-10 /HPF (0 - 0) H Urine WBC 5-10 /HPF (0 - 0) H Urine Squamous Epithelial Cells Occasional /LPF Urine Uric Acid Crystals Few /LPF (NONE) H Urine Bacteria Occasional /HPF (NONE) Neurologic Exam Objective PHYSICAL EXAMINATION: GENERAL: He is a well-developed and well-nourished slightly obese gentleman, lying in an ICU bed, with an O2 mask. HEAD: Head is normocephalic and atraumatic. EENT: Examination benign. NECK: No neck rigidity was observed. NEUROLOGICAL EXAMINATION: MENTAL STATUS EXAMINATION: He was awake and alert. He was oriented to self, [facility] and October 2018 - he did not know the exact date. He was able to recall 3/3 words immediately and could remember them in 1 and 3 minutes on the second trial. He was able to remember presidents [employer] through [employer]. His mathematical skills were good. His visuospatial function was preserved. SPEECH: His voice was hoarse. LANGUAGE: He had no aphasia. CRANIAL NERVE EXAMINATION: II: The visual sims were intact on confrontation. III, IV & : The external ocular movements were full and the pupils were 3 mm in diameter, equal, round, regular, and reactive to light. V: He had normal facial sensations and the temporales, masseters and pterygoids functioned normally. VII: He had normal facial expressions and no facial asymmetry. VIII: He was able to hear well and had no nystagmus. IX: The palate moved symmetrically on phonation. X: The voice was hoarse. XI: The sternocleidomastoids and trapezii did function. XII: The tongue was in the midline without fasciculations or atrophy. MOTOR SYSTEM: The tone was normal in all four extremities. Examination of muscle mass revealed no focal wasting. Examination of power revealed G 5/5 power. SENSORY EXAMINATION: He had intact sensations to light touch and graphesthesia. REFLEXES: 2+ and bilaterally symmetrical at the biceps, triceps, brachioradialis, and knees. 1+ at both ankles. The plantar responses were flexor bilaterally. COORDINATION: He performed well on finger to nose testing. STANCE & GAIT: Could not be tested. Impression/Recommendations Diagnostic Impression 1. Mr. Nabil Grace is a 48-year-old, gentleman, of unknown handedness, who does have a past history of bipolar affective disorder, who was hospitalized on 11/14/2018 after he overdosed on an unknown quantity of Seroquel and Celexa. He was brought into the [facility] emergency room and was placed on BiPAP. Of note is that a stomach lavage was not performed. He was then transferred to the ICU and was on BiPAP in the ICU until it was discontinued at approximately 1130 hours. At approximately 1415 hours, he was noted to have an episode of generalized clonic movements, lasting approximately 10 seconds associated with severe oxygen desaturation and worsening of his mental state. He was bagged immediately and soon afterwards he was intubated and artificially ventilated. He was then sedated with propofol and fentanyl. 2. He feels much better. He has been extubated. His voice is still hoarse. He feels better with regards to his mood. He tells me that he has contemplated ending his life many times but this was the first time he made a gesture. He tells me he had a traumatic childhood and has PTSD from it leading to severe depression. The mind is clear. He is able to communicate well. His strength is excellent. He denies any neurologic symptoms. 3. On neurological examination, at this time, he is awake and alert. He is oriented to self, [facility] [place] October 2018. He is able to recall 3/3 words immediately and can remember them in 1 and 3 minutes on the second trial. He is able to remember presidents [employer] through [employer]. His mathematical skills are good. His visuospatial function is preserved. His voice was hoarse. He had no aphasia. His cranial nerve function, motor function, and sensory function is normal. His reflexes are normal and symmetrical. 4. His latest laboratory data on my initial evaluation revealed that he was anemic with a hemoglobin of 13.1. His arterial blood gas following the event revealed a pH of 7.29, a pCO2 of 48, a pO2 of 76, and a bicarbonate of 22.5. His chemistry panel revealed a BUN elevated at 19 and low calcium at 8.3. His urinalysis revealed 1+ leukocyte esterase, 0-2 RBCs, and 10-15 WBCs per high- power field. His urine toxicology screen was negative. 5. The Brain CT done on 11/16/18 was normal. 6. His EEG done on 11/16/18 revealed a mild encephalopathy. 7. It is still unclear if the episode of abnormal clonic movements was due to a hypoxic event or a true seizure. 8. His encephalopathy however is improving well. Recommendations 1. Continue present management. 2. No antiseizure medicine is indicated. 3. Aggressive treatment of depression. 4. Patient made aware of the gift of life. Lázaro Hale M.D., M.S.P.H. Lázaro Hale MD Nov 17, 2018 20:24
[2018-11-17] MEDS: Cefepime HCl 2 GM in D5W 55 ML IVPB SCH (20:50)
--- NOTE | 2018-11-17 23:15 | Consultation ---
DATE OF CONSULTATION: 11/17/2018 INFECTIOUS DISEASE CONSULTATION CONSULTING PHYSICIAN: Markos Billings M.D. ATTENDING PHYSICIAN: Frantz Leary M.D. REFERRING PHYSICIAN: Kwame Gandara M.D. REASON FOR CONSULTATION: Possible pneumonia, UTI, fevers, and possible sepsis. CHIEF COMPLAINT: The patient's chief complaint coming in to the hospital is drug overdose. HISTORY OF PRESENT ILLNESS: This is a 48-year-old male, who comes to [facility] with diagnosis of drug overdose. The patient is currently in the ICU, intubated. He is not on pressors, but is alert. The patient has been having fevers. Infectious Diseases consultation was requested. Per the records patient overdose was on Seroquel and Celexa. Because of fevers, Infectious Diseases consultation was requested by Dr. Gandara. Case was discussed with Dr. Gandara. He was on Rocephin and Flagyl, but now he is on vancomycin, cefepime, and Flagyl. The patient has been pancultured. The patient is at high risk for aspiration pneumonia and has possible consolidation on chest x-ray, and also has positive urinalysis, could have UTI. It is unclear if the patient is septic with fevers with some type of new infection, however, awaiting cultures. The patient will be continued on vancomycin, cefepime, and Flagyl for now. Case was discussed with nursing staff in the ICU. REVIEW OF SYSTEMS: CONSTITUTIONAL: The patient is alert and responsive. He is orally intubated. HEAD AND NECK: He is orally intubated. CARDIAC: No pressors. GASTROINTESTINAL: No nausea, vomiting, or diarrhea. GENITOURINARY: He has Moore. PULMONARY: On a vent. SKIN: No rash. NEUROLOGIC: No seizures. He is alert and responsive. He did have fevers earlier. PAST MEDICAL HISTORY: The patient has past medical history of the following. The patient has past medical history of bipolar disease, ADHD, and anxiety. There is no history of diabetes or hypertension mentioned. ALLERGIES: No known drug allergies. SOCIAL HISTORY: Negative for smoking, alcohol, or drug abuse. FAMILY HISTORY: Noncontributory. MEDICATIONS: Upon reviewing the MAR, he is on the following medications. He is on cefepime, vancomycin, and Flagyl. He is on Lopid. He is on Tylenol. He is on lorazepam, heparin, and pantoprazole. Outside medications, it looks like, he is on diphenhydramine, prednisone, Seroquel, Desyrel, trazodone, and Celexa. PHYSICAL EXAMINATION: VITAL SIGNS: Temperature 99.0, pulse rate 87, respiratory rate 20, blood pressure 140/86, and saturation 96%, FiO2 was 60% when I saw him. He is on a vent. They are trying to wean the patient. Saturation is 98%, blood pressure 142/87, pulse rate 77, respiratory rate 20, temperature 99.0, T-max is 101.5. Pulse rate has been as high as 109 earlier in the admission. He is on a vent. Respiratory rate as high as 22. GENERAL: Alert and responsive. HEAD AND NECK: Orally intubated. Eye exam, no icterus. Normocephalic. No JVD. HEART: Regular. No gallops or murmur. ABDOMEN: Soft. Positive bowel sounds. Nontender. LUNGS: Few bilateral rhonchi, possible rales at the bases, but mostly clear bilaterally. SKIN: No rash. MUSCULOSKELETAL: No effusion. Legs are without cellulitis. PERIPHERAL VASCULAR: No cyanosis or gangrene. GENITOURINARY: He has Moore. Urine is clear. LINE SITES: Without phlebitis. NEUROLOGIC: Alert and responsive. Able to move all four extremities. LABORATORY DATA: As follows. White count . LFTs were noted. Lactic acid is normal. White count 7.9 and hemoglobin 11.9. UA, 2+ leukocyte esterase and 5-10 white blood cells. Chest x-ray had left basilar atelectasis and possibly consolidation. Initial chest x-ray showed no acute process, just atelectasis. Cultures, previous urine culture negative. Followup cultures of blood, urine, and sputum are pending. VRE and MRSA screen are negative. ASSESSMENT AND PLAN: 1. The patient has fevers and possible aspiration pneumonia versus possible UTI and possible sepsis with fevers, however, lactic acid level is normal. At this time, I discussed with Dr. Gandara and agree with broad-spectrum antibiotics with vancomycin, cefepime, and Flagyl for MRSA and gram-negative coverage. This will also cover aspiration pneumonia in addition to any new nosocomial process. Continue vancomycin, cefepime, and Flagyl for possible aspiration pneumonia, sepsis, and UTI. Check followup cultures and labs including blood, urine, and sputum cultures. Check followup chest x-ray. Continue vent support. Weaning per Dr. Gandara. 2. The patient comes in with drug overdose secondary to Seroquel and Celexa per the records. Continue supportive treatment per Neurology and Psychiatry. 3. History of bipolar disease per the records. 4. Anxiety. 5. ADHD. 6. No history of diabetes or hypertension. 7. No known allergies. 8. Social history negative. 9. Family history noncontributory. 10. MAR was noted. 11. Case discussed with RN. 12. ICU care. 13. Continue treatment per primary consultants. Markos Billings M.D. DR: KISHA JOB#: [id number] CC: KELVIN
--- NOTE | 2018-11-17 23:39 | Pulmonolgy Critical Care Note ---
Critical Care - Asmt/Plan Assessment/Plan: Pulmonary CCM Consultation HPI Patient admitted after an overdose. The patient allegedly took a Seroquel and Celexa. They're unable to ascertain what time. There were multiple tablets that were taken. The patient amb[facility]. Please decreasing mentation on the way into the hospital. An EKG didn't had sinus tachycardia. The patient states he took the pills 2 hours ago and wanted to kill himself. On AC VC RR 22 On antibiotics per ID Much improved, for extubation Seizure previously - Neurology following, CT negative/EEG pending On NG tube feeding Allergies: No Known Allergies (Unverified , 11/14/18) Past Medical History: none noted Physical Exam Vital Signs Noted General Appearance: non-toxic, sedated, eyes closed localizes pain vocalizes Head: normocephalic, atraumatic Eyes: bilateral eye PERRL, bilateral eye Scleral Injection ENT: moist mucus membranes Neck: supple Respiratory: chest non-tender, lungs clear, normal breath sounds Cardiovascular #1: tachycardia, HS1, HS2 RRR Abdomen: SNTND Extremities: No edema, no rashes PATTERN CARRIER: moves all extremities, PEERL, no seizures, no focal sign, purposeful to pain Impression: Drug overdose Respiratory failure Seizure UTI (urinary tract infection) EKG: No ischemia, ST Plan Wean of ventilator and extubate, RSBI <100 Monitor labs/ABG NPO Aspiration precautions Cardiac Monitoring AB per ID Psychiatry following Await EEG Laboratory Tests Test 11/14/18 16:40 11/14/18 18:48 Urine Color Viviana Urine Appearance Clear Urine pH 6.5 (4.5-8.0) Urine Specific [place] 1.015 (1.005-1.035) Urine Protein 1+ (NEGATIVE) H Urine Glucose (UA) Negative (NEGATIVE) Urine Ketones Negative (NEGATIVE) Urine Blood 1+ (NEGATIVE) H Urine Nitrite Negative (NEGATIVE) Urine Bilirubin Negative (NEGATIVE) Urine Ictotest Negative (NEGATIVE) Urine Urobilinogen Normal MG/DL (0.0-1.0) Urine Leukocyte Esterase 1+ (NEGATIVE) H Urine RBC 0-2 /HPF (0 - 0) H Urine WBC 10-15 /HPF (0 - 0) H Urine Squamous Epithelial Cells Occasional /LPF Urine Amorphous Sediment Moderate /LPF (NONE) H Urine Bacteria Few /HPF (NONE) Arterial Blood pH 7.298 (7.350-7.450) Arterial Blood Partial Pressure CO2 52.3 mmHg (35.0-45.0) H Arterial Blood Partial Pressure O2 62.5 mmHg (75.0-100.0) L Arterial Blood HCO3 25.0 mmol/L (22.0-26.0) Arterial Blood Oxygen Saturation 89.7 % (95-100) *L Arterial Blood Base Excess -2.1 (-2-2) L Derek Test Positive Sodium Level 137 MMOL/L (136-145) Potassium Level 3.4 MMOL/L (3.5-5.1) L Chloride Level 99 MMOL/L (98-107) Carbon Dioxide Level 27 MMOL/L (21-32) Anion Gap 11 mmol/L (5-15) Blood Urea Nitrogen 17 mg/dL (7-18) Creatinine 1.0 MG/DL (0.55-1.30) Estimate Glomerular Filtration Rate > 60 mL/min (>60) Glucose Level 152 MG/DL (74-106) H Calcium Level 9.2 MG/DL (8.5-10.1) Total Bilirubin 0.4 MG/DL (0.2-1.0) Aspartate Amino Transferase (AST) 22 U/L (15-37) Alanine Aminotransferase (ALT) 46 U/L (12-78) Alkaline Phosphatase 99 U/L (46-116) Total Creatine Kinase 53 U/L (26-308) Troponin I 0.000 ng/mL (0.000-0.056) Total Protein 8.8 G/DL (6.4-8.2) H Albumin 4.0 G/DL (3.4-5.0) Globulin 4.8 g/dL Albumin/Globulin Ratio 0.8 (1.0-2.7) L Salicylates Level 1.7 ug/mL (2.8-20) L Urine Opiates Screen Negative (NEGATIVE) Acetaminophen Level < 2 MCG/ML (10-30) L Urine Barbiturates Screen Negative (NEGATIVE) Phencyclidine (PCP) Screen Negative (NEGATIVE) Urine Amphetamines Screen Negative (NEGATIVE) Urine Benzodiazepines Screen Negative (NEGATIVE) Urine Cocaine Screen Negative (NEGATIVE) Urine Marijuana (THC) Screen Negative (NEGATIVE) Serum Alcohol < 3 mg/dL White Blood Count 9.8 K/UL (4.8-10.8) Red Blood Count 5.33 M/UL (4.70-6.10) Hemoglobin 10.5 G/DL (14.2-18.0) L Hematocrit 34.8 % (42.0-52.0) L Mean Corpuscular Volume 65 FL (80-99) L Mean Corpuscular Hemoglobin 19.6 PG (27.0-31.0) L Mean Corpuscular Hemoglobin Concent 30.0 G/DL (32.0-36.0) L Red Cell Distribution Width 15.1 % (11.6-14.8) H Platelet Count 150 K/UL (150-450) Mean Platelet Volume 8.1 FL (6.5-10.1) Neutrophils (%) (Auto) 81.1 % (45.0-75.0) H Lymphocytes (%) (Auto) 11.4 % (20.0-45.0) L Monocytes (%) (Auto) 6.4 % (1.0-10.0) Eosinophils (%) (Auto) 0.5 % (0.0-3.0) Basophils (%) (Auto) 0.7 % (0.0-2.0) Rhythm Strip Diag. Results EP Interpretation: yes Rhythm: no PVC's, no ectopy, other - ST Chest X-Ray Diagnostic Results Chest X-Ray Diagnostic Results : Chest X-Ray Ordered: Yes # of Views/Limited/Complete: 1 View Indication: Other EP Interpretation: Yes Interpretation: no consolidation, no effusion, no pneumothorax, other - poor inspiration Critical Care - Objective Last 24 Hour Vital Signs Date Time Temp Pulse Resp B/P (MAP) Pulse Ox O2 Delivery O2 Flow Rate FiO2 11/17/18 23:00 90 20 142/85 (104) 94 11/17/18 22:40 89 21 96 Venturi Mask 10.0 50 11/17/18 22:35 88 21 95 Venturi Mask 10.0 50 11/17/18 22:00 100.0 88 20 149/83 (105) 94 11/17/18 21:48 100.0 11/17/18 21:00 85 22 143/89 (107) 93 11/17/18 20:21 Venturi Mask Venturi Mask 11/17/18 20:09 88 11/17/18 20:06 100.6 88 22 140/86 (104) 95 12/19/18 19:03 87 22 94 Venturi Mask 10.0 50 18 19:00 90 20 150/81 (104) 93 18 18:59 95 Venturi Mask 10.0 50 18 18:59 Venturi Mask 10.0 50 18 18:55 85 22 94 Venturi Mask 10.0 50 18 18:00 82 20 126/82 (97) 96 18 17:28 Venturi Mask 10.0 50 18 17:00 87 20 140/86 (104) 100 11/17/18 16:56 Venturi Mask 10.0 11/17/18 16:55 96 Venturi Mask 10.0 50 11/17/18 16:00 99.0 77 20 142/87 (105) 98 11/17/18 16:00 77 11/17/18 16:00 Mechanical Ventilator 11/17/18 15:06 79 22 50 11/17/18 15:00 79 20 133/87 (102) 100 11/17/18 14:00 74 20 136/85 (102) 98 11/17/18 13:04 93 26 50 11/17/18 13:00 84 20 145/88 (107) 97 11/17/18 12:16 50 11/17/18 12:15 40 11/17/18 12:00 Mechanical Ventilator 11/17/18 12:00 98.9 78 20 138/92 (107) 98 11/17/18 12:00 77 11/17/18 11:55 77 11/17/18 11:00 77 20 148/91 (110) 98 18 10:59 78 22 50 11/17/18 10:00 81 20 148/90 (109) 98 11/17/18 09:00 100.2 88 22 141/88 (105) 91 18 08:56 88 22 50 18 08:03 93 11/17/18 08:00 97 11/17/18 08:00 101.5 100 19 144/88 (106) 91 11/17/18 08:00 Mechanical Ventilator 11/17/18 08:00 40 18 07:59 50 11/17/18 07:35 50 11/17/18 07:30 40 12/19/18 07:15 97 26 40 11/17/18 07:00 109 19 143/87 (105) 91 18 06:30 40 11/17/18 06:00 40 11/17/18 06:00 75 19 146/90 (108) 98 11/17/18 05:28 73 22 40 11/17/18 05:00 78 24 153/88 (109) 98 11/17/18 04:00 98.9 83 24 138/88 (105) 97 11/17/18 04:00 75 11/17/18 04:00 40 11/17/18 04:00 Mechanical Ventilator 11/17/18 03:30 71 22 117/90 (99) 98 11/17/18 03:26 67 22 40 11/17/18 03:00 66 22 141/94 (110) 98 11/17/18 03:00 Mechanical Ventilator 40 11/17/18 02:30 67 22 133/87 (102) 97 11/17/18 02:00 68 22 136/89 (105) 97 11/17/18 02:00 22 Mechanical Ventilator 40 11/17/18 01:30 70 22 130/87 (101) 98 11/17/18 01:18 67 22 40 11/17/18 01:00 68 22 130/87 (101) 99 11/17/18 01:00 12 Mechanical Ventilator 40 11/17/18 00:30 66 22 134/87 (103) 99 11/17/18 00:00 99.2 64 22 134/90 (105) 98 11/17/18 00:00 40 11/17/18 00:00 65 11/17/18 00:00 Mechanical Ventilator 11/17/18 00:00 24 Mechanical Ventilator 40 Critical Care - Subjective ROS Limited/Unobtainable: No Condition: improving IV Access: peripheral EKG Rhythm: Sinus Rhythm FI02: 50 Vent Support Breath Rate: 22 Vent Support Mode: CPAP Vent Tidal Volume: 500 Sputum Amount: None PEEP: 5.0 PIP: 41 Tube Feeding Amount: 40 I&O: Intake and Output 11/16/18 11/17/18 18:59 06:59 Intake Total 2472 ml 1644.5 ml Output Total 815 ml 610 ml Balance 1657 ml 1034.5 ml Free Water 40 ml IV Total 2372 ml 1364.5 ml Tube Feeding 40 ml 280 ml Other 20 ml Output Urine Total 815 ml 610 ml ET-Tube: 7.5 ET Position: 22 Kwame Gandara MD Nov 17, 2018 23:39
[2018-11-18] VITALS (23 sets, daily range): BP systolic 107–158; BP diastolic 49–86
[2018-11-18] MEDS: D5NS 1,000 ML IV SCH ×2 (04:51→14:50)
[2018-11-18] MEDS: Pantoprazole Inj IVP SCH (09:01)
[2018-11-18] MEDS: Heparin 5000 units/ml inj SUBQ SCH ×2 (09:03→21:02)
[2018-11-18] MEDS: Cefepime HCl 2 GM in D5W 55 ML IVPB SCH ×2 (09:23→21:01)
--- NOTE | 2018-11-18 10:54 | Diagnostic Imaging Report ---
. Indication: Dyspnea Technique: XRAY Chest 1v Comparison: 11/16/2018 Findings: Interval removal of endotracheal and enteric tubes. Heart size and mediastinal contours stable. Change elevation of the right hemidiaphragm. Interval decrease in retrocardiac exam linear opacities at the left base. Impression: * Interval removal of endotracheal tube. * Improved aeration of the left lung base with decreased retrocardiac and linear opacities.
[2018-11-18] MEDS: Vancomycin 1gm in D5W 275ml IVPB SCH ×2 (11:12→23:25)
--- NOTE | 2018-11-18 11:35 | General Progress Note ---
Assessment/Plan Problem List: (1) Bipolar disorder ICD Codes: F31.9 - Bipolar disorder, unspecified SNOMED: [id number] Qualifiers: (2) encephalopathy due to toxin Status: unchanged Assessment/Plan increase Ativan prn to 1mg IM q2hr cont to monitor the pt is at imminent dts/sto the pt was provide st transfer to psychiatric unit Subjective Date patient seen: Nov 18, 2018 Neurologic/Psychiatric: Reports: anxiety, depressed Allergies: Coded Allergies: No Known Allergies (Unverified , 11/14/18) UNABLE TO ASSESS (Unverified , 04/10/17) Patient stated that he is allergic to some antibiotics but unable to provide the name Subjective No agitation the pt is still on life support and now is aaox4. The pt is more anxious and suicidal thoughts. The pt stated that he feels lonely and hopeless. The pt stated that he recently lost his dogs and house. the pt stated that he couldn't go back to the previous facility. Objective Last 24 Hour Vital Signs Date Time Temp Pulse Resp B/P (MAP) Pulse Ox O2 Delivery O2 Flow Rate FiO2 11/18/18 11:26 73 14 96 Nasal Cannula 2.0 28 11/18/18 11:21 76 19 98 Nasal Cannula 4.0 36 11/18/18 11:00 73 16 123/75 (91) 98 11/18/18 10:00 73 16 119/74 (89) 96 11/18/18 09:00 70 16 123/63 (83) 96 11/18/18 08:00 99.2 69 16 125/49 (74) 97 11/18/18 08:00 Venturi Mask Venturi Mask 11/18/18 07:30 Venturi Mask 12.0 50 11/18/18 07:30 98 Venturi Mask 12.0 50 11/18/18 07:30 73 15 96 Nasal Cannula 4.0 36 11/18/18 07:25 68 19 98 Venturi Mask 12.0 50 11/18/18 07:00 78 18 129/69 (89) 96 11/18/18 06:00 77 17 111/66 (81) 96 11/18/18 05:00 71 17 123/67 (85) 96 11/18/18 04:00 Venturi Mask Venturi Mask 11/18/18 04:00 86 11/18/18 04:00 82 20 123/78 (93) 95 11/18/18 03:26 72 19 96 Venturi Mask 10.0 50 11/18/18 03:22 82 21 96 Venturi Mask 10.0 50 11/18/18 03:00 99.1 83 20 124/56 (78) 94 11/18/18 02:00 72 20 132/62 (85) 94 11/18/18 01:11 Venturi Mask 10.0 50 11/18/18 01:11 96 Venturi Mask 10.0 50 11/18/18 01:00 77 20 136/52 (80) 93 11/18/18 00:00 86 11/18/18 00:00 Venturi Mask Venturi Mask 11/18/18 00:00 100.0 88 21 141/83 (102) 95 11/17/18 23:05 100.2 85 20 142/85 (104) 96 11/17/18 23:00 90 20 142/85 (104) 94 11/17/18 22:40 89 21 96 Venturi Mask 10.0 50 11/17/18 22:35 88 21 95 Venturi Mask 10.0 50 11/17/18 22:00 100.0 88 20 149/83 (105) 94 11/17/18 21:48 100.0 11/17/18 21:00 85 22 143/89 (107) 93 11/17/18 20:21 Venturi Mask Venturi Mask 11/17/18 20:09 88 11/17/18 20:06 100.6 88 22 140/86 (104) 95 11/17/18 19:03 87 22 94 Venturi Mask 10.0 50 18 19:00 90 20 150/81 (104) 93 18 18:59 95 Venturi Mask 10.0 50 11/17/18 18:59 Venturi Mask 10.0 50 18 18:55 85 22 94 Venturi Mask 10.0 50 18 18:00 82 20 126/82 (97) 96 18 17:28 Venturi Mask 10.0 50 18 17:00 87 20 140/86 (104) 100 18 16:56 Venturi Mask 10.0 18 16:55 96 Venturi Mask 10.0 50 11/17/18 16:00 99.0 77 20 142/87 (105) 98 11/17/18 16:00 77 11/17/18 16:00 Mechanical Ventilator 11/17/18 15:06 79 22 50 11/17/18 15:00 79 20 133/87 (102) 100 11/17/18 14:00 74 20 136/85 (102) 98 11/17/18 13:04 93 26 50 11/17/18 13:00 84 20 145/88 (107) 97 11/17/18 12:16 50 11/17/18 12:15 40 11/17/18 12:00 Mechanical Ventilator 11/17/18 12:00 98.9 78 20 138/92 (107) 98 11/17/18 12:00 77 11/17/18 11:55 77 Intake and Output 11/17/18 11/18/18 19:00 07:00 Intake Total 2014.916 ml 1215 ml Output Total 1490 ml 2650 ml Balance 524.916 ml -1435 ml Intake Oral 100 ml 60 ml Free Water 50 ml IV Total 1864.916 ml 1155 ml Output Urine Total 1490 ml 2650 ml Laboratory Tests 11/17/18 12:45: Arterial Blood pH 7.330L, Arterial Blood Partial Pressure CO2 47.3H, Arterial Blood Partial Pressure O2 84.4, Arterial Blood HCO3 24.9, Arterial Blood Oxygen Saturation 95.7, Arterial Blood Base Excess -1.2, Derek Test Positive Height (Feet): 5 Height (Inches): 6.00 Weight (Pounds): 195 General Appearance: WD/WN, no apparent distress, alert, overweight Neurologic: oriented x 3, responsive, depressed affect Nery Chiang MD Nov 18, 2018 11:35
--- NOTE | 2018-11-18 14:45 | Nephrology Progress Note ---
Assessment/Plan Problem List: (1) Respiratory failure Assessment: now extubated (2) UTI (urinary tract infection) (3) Drug overdose (4) Acute renal failure Assessment: Cr now wnl (5) High triglycerides Assessment: on Gemfibrozil Assessment Drug overdose Respiratory failure NOW EXTUBATED UTI (urinary tract infection) EKG: No ischemia, ST h/o Psych disease mild anemia high Trigs Cr up to 1.4 back to 1.2 Plan DC murray Hydrate- Aim to correct lytes Monitor renal parameters Avoid nephrotoxics venofer K Phos gemfibrozil Subjective ROS Limited/Unobtainable: No Objective Objective Last 24 Hour Vital Signs Date Time Temp Pulse Resp B/P (MAP) Pulse Ox O2 Delivery O2 Flow Rate FiO2 11/18/18 12:00 Venturi Mask Venturi Mask 11/18/18 11:26 73 14 96 Nasal Cannula 2.0 28 11/18/18 11:21 76 19 98 Nasal Cannula 4.0 36 11/18/18 11:00 73 16 123/75 (91) 98 11/18/18 10:00 73 16 119/74 (89) 96 11/18/18 09:00 70 16 123/63 (83) 96 11/18/18 08:00 73 11/18/18 08:00 99.2 69 16 125/49 (74) 97 11/18/18 08:00 Venturi Mask Venturi Mask 11/18/18 07:30 Venturi Mask 12.0 50 11/18/18 07:30 98 Venturi Mask 12.0 50 11/18/18 07:30 73 15 96 Nasal Cannula 4.0 36 11/18/18 07:25 68 19 98 Venturi Mask 12.0 50 11/18/18 07:00 78 18 129/69 (89) 96 11/18/18 06:00 77 17 111/66 (81) 96 11/18/18 05:00 71 17 123/67 (85) 96 11/18/18 04:00 Venturi Mask Venturi Mask 11/18/18 04:00 86 11/18/18 04:00 82 20 123/78 (93) 95 11/18/18 03:26 72 19 96 Venturi Mask 10.0 50 11/18/18 03:22 82 21 96 Venturi Mask 10.0 50 11/18/18 03:00 99.1 83 20 124/56 (78) 94 11/18/18 02:00 72 20 132/62 (85) 94 11/18/18 01:11 Venturi Mask 10.0 50 11/18/18 01:11 96 Venturi Mask 10.0 50 11/18/18 01:00 77 20 136/52 (80) 93 11/18/18 00:00 86 11/18/18 00:00 Venturi Mask Venturi Mask 11/18/18 00:00 100.0 88 21 141/83 (102) 95 11/17/18 23:05 100.2 85 20 142/85 (104) 96 11/17/18 23:00 90 20 142/85 (104) 94 11/17/18 22:40 89 21 96 Venturi Mask 10.0 50 11/17/18 22:35 88 21 95 Venturi Mask 10.0 50 11/17/18 22:00 100.0 88 20 149/83 (105) 94 11/17/18 21:48 100.0 11/17/18 21:00 85 22 143/89 (107) 93 11/17/18 20:21 Venturi Mask Venturi Mask 11/17/18 20:09 88 11/17/18 20:06 100.6 88 22 140/86 (104) 95 11/17/18 19:03 87 22 94 Venturi Mask 10.0 50 11/17/18 19:00 90 20 150/81 (104) 93 18 18:59 95 Venturi Mask 10.0 50 11/17/18 18:59 Venturi Mask 10.0 50 11/17/18 18:55 85 22 94 Venturi Mask 10.0 50 18 18:00 82 20 126/82 (97) 96 18 17:28 Venturi Mask 10.0 50 18 17:00 87 20 140/86 (104) 100 11/17/18 16:56 Venturi Mask 10.0 18 16:55 96 Venturi Mask 10.0 50 11/17/18 16:00 99.0 77 20 142/87 (105) 98 11/17/18 16:00 77 11/17/18 16:00 Mechanical Ventilator 11/17/18 15:06 79 22 50 11/17/18 15:00 79 20 133/87 (102) 100 Intake and Output 11/17/18 11/18/18 19:00 07:00 Intake Total 2014.916 ml 1215 ml Output Total 1490 ml 2650 ml Balance 524.916 ml -1435 ml Intake Oral 100 ml 60 ml Free Water 50 ml IV Total 1864.916 ml 1155 ml Output Urine Total 1490 ml 2650 ml Height (Feet): 5 Height (Inches): 6.00 Weight (Pounds): 195 EENT: other - extubated Cardiovascular: normal rate Respiratory/Chest: decreased breath sounds Abdomen: soft Mark Llanes MD Nov 18, 2018 14:45
--- NOTE | 2018-11-18 14:52 | Infectious Diseases Prog Note ---
Assessment/Plan Assessment/Plan A) 1) possible aspiration pna, ? uti, possible sepsis, fevers 2) drug overdose 3) pmh noted 4) allergies - nkda P) 1) continue vancomycin, cefepime and flagyl 2) f/u on cultures 3) monitor labs and chest x-ray 4) d/w patient 5) will f/u Subjective Constitutional: Reports: fever - lgt HEENT: Denies: congestion Respiratory: Denies: shortness of breath Cardiovascular: Denies: chest pain Gastrointestinal/Abdominal: Denies: nausea Allergies: Coded Allergies: No Known Allergies (Unverified , 11/14/18) UNABLE TO ASSESS (Unverified , 04/10/17) Patient stated that he is allergic to some antibiotics but unable to provide the name Objective Vital Signs Last 24 Hour Vital Signs Date Time Temp Pulse Resp B/P (MAP) Pulse Ox O2 Delivery O2 Flow Rate FiO2 11/18/18 14:45 86 22 98 Nasal Cannula 2.0 28 11/18/18 12:00 Venturi Mask Venturi Mask 11/18/18 11:26 73 14 96 Nasal Cannula 2.0 28 11/18/18 11:21 76 19 98 Nasal Cannula 4.0 36 11/18/18 11:00 73 16 123/75 (91) 98 11/18/18 10:00 73 16 119/74 (89) 96 11/18/18 09:00 70 16 123/63 (83) 96 11/18/18 08:00 73 11/18/18 08:00 99.2 69 16 125/49 (74) 97 11/18/18 08:00 Venturi Mask Venturi Mask 11/18/18 07:30 Venturi Mask 12.0 50 11/18/18 07:30 98 Venturi Mask 12.0 50 11/18/18 07:30 73 15 96 Nasal Cannula 4.0 36 11/18/18 07:25 68 19 98 Venturi Mask 12.0 50 11/18/18 07:00 78 18 129/69 (89) 96 11/18/18 06:00 77 17 111/66 (81) 96 11/18/18 05:00 71 17 123/67 (85) 96 11/18/18 04:00 Venturi Mask Venturi Mask 11/18/18 04:00 86 11/18/18 04:00 82 20 123/78 (93) 95 11/18/18 03:26 72 19 96 Venturi Mask 10.0 50 11/18/18 03:22 82 21 96 Venturi Mask 10.0 50 11/18/18 03:00 99.1 83 20 124/56 (78) 94 11/18/18 02:00 72 20 132/62 (85) 94 11/18/18 01:11 Venturi Mask 10.0 50 11/18/18 01:11 96 Venturi Mask 10.0 50 11/18/18 01:00 77 20 136/52 (80) 93 11/18/18 00:00 86 11/18/18 00:00 Venturi Mask Venturi Mask 11/18/18 00:00 100.0 88 21 141/83 (102) 95 11/17/18 23:05 100.2 85 20 142/85 (104) 96 11/17/18 23:00 90 20 142/85 (104) 94 11/17/18 22:40 89 21 96 Venturi Mask 10.0 50 11/17/18 22:35 88 21 95 Venturi Mask 10.0 50 11/17/18 22:00 100.0 88 20 149/83 (105) 94 18 21:48 100.0 11/17/18 21:00 85 22 143/89 (107) 93 11/17/18 20:21 Venturi Mask Venturi Mask 11/17/18 20:09 88 11/17/18 20:06 100.6 88 22 140/86 (104) 95 11/17/18 19:03 87 22 94 Venturi Mask 10.0 50 18 19:00 90 20 150/81 (104) 93 18 18:59 95 Venturi Mask 10.0 50 18 18:59 Venturi Mask 10.0 50 18 18:55 85 22 94 Venturi Mask 10.0 50 18 18:00 82 20 126/82 (97) 96 18 17:28 Venturi Mask 10.0 50 18 17:00 87 20 140/86 (104) 100 11/17/18 16:56 Venturi Mask 10.0 18 16:55 96 Venturi Mask 10.0 50 11/17/18 16:00 99.0 77 20 142/87 (105) 98 11/17/18 16:00 77 11/17/18 16:00 Mechanical Ventilator 11/17/18 15:06 79 22 50 11/17/18 15:00 79 20 133/87 (102) 100 Height (Feet): 5 Height (Inches): 6.00 Weight (Pounds): 195 General Appearance: WD/WN HEENT: normocephalic, atraumatic, anicteric Respiratory/Chest: lungs clear, normal breath sounds, no respiratory distress Cardiovascular: normal rate, regular rhythm Abdomen: soft, non tender, no organomegaly Microbiology Date/Time Source Procedure Growth Status 11/17/18 08:55 Blood Blood Culture - Preliminary NO GROWTH AFTER 24 HOURS Resulted 11/17/18 08:40 Blood Blood Culture - Preliminary NO GROWTH AFTER 24 HOURS Resulted 11/17/18 08:20 Sputum Induced Gram Stain - Final Resulted 11/17/18 08:20 Sputum Induced Sputum Culture - Preliminary NORMAL UPPER RESPIRATORY MONISHA AT 24 ... Resulted 11/17/18 09:15 Indwelling Cath Urine Culture - Preliminary NO GROWTH Resulted Current Medications Medications (Trade) Dose Ordered Sig/Oliva Route PRN Reason Start Time Stop Time Status Last Admin Dose Admin Acetaminophen (Tylenol) 650 mg Q6H PRN ORAL Mild Pain/Temp > 100.0 11/17/18 08:30 12/17/18 08:29 11/17/18 20:59 Cefepime HCl 2 gm/ Dextrose 55 ml @ 110 mls/hr EVERY 12 HOURS IVPB 11/17/18 21:00 11/24/18 20:59 11/18/18 09:23 Citalopram Hydrobromide (celeXA) 20 mg DAILY ORAL 11/19/18 09:00 12/19/18 08:59 Dextrose/Sodium Chloride 1,000 ml @ 100 mls/hr Q10H IV 11/16/18 12:30 12/16/18 12:29 11/18/18 04:51 Gemfibrozil (Lopid) 600 mg TWICE A DAY NG 11/17/18 18:00 12/17/18 17:59 11/18/18 09:00 Heparin Sodium (Porcine) (Heparin 5000 units/ml) 5,000 units EVERY 12 HOURS SUBQ 11/14/18 21:00 12/14/18 20:59 11/18/18 09:03 Lorazepam (Ativan 2mg/ml 1ml) 1 mg Q2H PRN IM Agitation 11/15/18 13:00 11/22/18 12:59 11/15/18 16:24 Lorazepam (Ativan 2mg/ml 1ml) 1 mg Q6H PRN IV For Seizures 11/15/18 15:00 11/22/18 14:59 Metronidazole 100 ml @ 100 mls/hr Q8HR IVPB 11/15/18 16:00 11/22/18 15:59 11/18/18 06:10 Pantoprazole (Protonix) 40 mg DAILY IVP 11/14/18 20:30 12/14/18 20:29 11/18/18 09:01 Vancomycin HCl (Vanco rx to dose) 1 ea DAILY PRN MISC Per rx protocol 11/17/18 08:15 12/17/18 08:14 Vancomycin HCl 1 gm/Dextrose 275 ml @ 183.708 mls/hr Q12H IVPB 11/17/18 10:00 11/22/18 09:59 11/18/18 11:12 Markos Billings MD Nov 18, 2018 14:52
[2018-11-18] MEDS ORDERED: Tubing IV Secondary IV ONE ×3 (15:27→15:28)
[2018-11-18] MEDS ORDERED: Sterile Water Irrig 1000ml IRRIG ONE ×2 (15:27→15:28)
[2018-11-18] MEDS ORDERED: NS 275ml ONE ×2 (15:27→15:28)
[2018-11-18] MEDS ORDERED: D5NS 1000ml IV ONE (15:27)
--- NOTE | 2018-11-18 18:00 | Neurology Progress Note ---
Interim History Interim History Interim History Mr. Grace feels much better. He is breathing well. His voice is less hoarse. He feels better with regards to his mood. The mind is clear. He is able to communicate well. His strength is excellent. He denies any neurologic symptoms. He has had a daily headache for the last 40 years, which he localizes inside his head. It is a pressure-like sensation. The headache gets better when he is less anxious and depressed and gets worse when he more anxious and depressed. Over the years he has been given various different drugs and none ot them have worked. Review of Systems Neuro Review of Systems Benign. Objective Physical Exam Last Vital Signs Date Time Temp Pulse Resp B/P (MAP) Pulse Ox O2 Delivery O2 Flow Rate FiO2 11/18/18 17:00 86 16 139/85 (103) 95 11/18/18 16:46 98.9 11/18/18 16:00 Venturi Mask Venturi Mask 11/18/18 14:50 2.0 28 Neurologic Exam Objective PHYSICAL EXAMINATION: GENERAL: He is a well-developed, well-nourished slightly obese gentleman, sitting up in an ICU bed eating his dinner. HEAD: Head is normocephalic and atraumatic. EENT: Examination benign. NECK: No neck rigidity was observed. NEUROLOGICAL EXAMINATION: MENTAL STATUS EXAMINATION: He was awake and alert. He was oriented to self, [facility] [place] - he did not know the exact date. He was able to recall 3/3 words immediately and could remember them in 1 and 3 minutes. He was able to remember presidents [employer] through [employer]. His mathematical skills were good. His visuospatial function was preserved. SPEECH: His voice was less hoarse. LANGUAGE: He had no aphasia. CRANIAL NERVE EXAMINATION: II: The visual sims were intact on confrontation. III, IV & : The external ocular movements were full and the pupils were 3 mm in diameter, equal, round, regular, and reactive to light. V: He had normal facial sensations and the temporales, masseters and pterygoids functioned normally. VII: He had normal facial expressions and no facial asymmetry. VIII: He was able to hear well and had no nystagmus. IX: The palate moved symmetrically on phonation. X: The voice was hoarse. XI: The sternocleidomastoids and trapezii did function. XII: The tongue was in the midline without fasciculations or atrophy. MOTOR SYSTEM: The tone was normal in all four extremities. Examination of muscle mass revealed no focal wasting. Examination of power revealed G 5/5 power. SENSORY EXAMINATION: He had intact sensations to light touch and graphesthesia. REFLEXES: 2+ and bilaterally symmetrical at the biceps, triceps, brachioradialis, and knees. 1+ at both ankles. The plantar responses were flexor bilaterally. COORDINATION: He performed well on finger to nose testing. STANCE & GAIT: Could not be tested. Impression/Recommendations Diagnostic Impression 1. Mr. Nabil Grace is a 48-year-old, gentleman, of unknown handedness, who does have a past history of bipolar affective disorder, who was hospitalized on 11/14/2018 after he overdosed on an unknown quantity of Seroquel and Celexa. He was brought into the [facility] emergency room and was placed on BiPAP. Of note is that a stomach lavage was not performed. He was then transferred to the ICU and was on BiPAP in the ICU until it was discontinued at approximately 1130 hours. At approximately 1415 hours, he was noted to have an episode of generalized clonic movements, lasting approximately 10 seconds associated with severe oxygen desaturation and worsening of his mental state. He was bagged immediately and soon afterwards he was intubated and artificially ventilated. He was then sedated with propofol and fentanyl. 2. He feels much better. He is breathing well. His voice is less hoarse. He feels better with regards to his mood. The mind is clear. He is able to communicate well. His strength is excellent. He denies any neurologic symptoms. 3. He has had a daily headache for the last 40 years, which he localizes inside his head. It is a pressure-like sensation. The headache gets better when he is less anxious and depressed and gets worse when he more anxious and depressed. Over the years he has been given various different drugs and none ot them have worked. 4. On neurological examination, at this time, he is awake and alert. He is oriented to self, [facility] [place] and October 2018. He is able to recall 3/3 words immediately and can remember them in 1 and 3 minutes. He is able to remember presidents [employer] through [employer]. His mathematical skills are good. His visuospatial function is preserved. His voice is less hoarse. He had no aphasia. His cranial nerve function, motor function, and sensory function are normal. His reflexes are normal and symmetrical. 5. His latest laboratory data on my initial evaluation revealed that he was anemic with a hemoglobin of 13.1. His arterial blood gas following the event revealed a pH of 7.29, a pCO2 of 48, a pO2 of 76, and a bicarbonate of 22.5. His chemistry panel revealed a BUN elevated at 19 and low calcium at 8.3. His urinalysis revealed 1+ leukocyte esterase, 0-2 RBCs, and 10-15 WBCs per high- power field. His urine toxicology screen was negative. 6. The Brain CT done on 11/16/18 was normal. 7. His EEG done on 11/16/18 revealed a mild encephalopathy. 8. It is still unclear if the episode of abnormal clonic movements was due to a hypoxic event or a true seizure. 9. His encephalopathy however is improving well. 10. He has had headache for the last 40 years. It is difficult to classify the headache. Recommendations 1. Continue present management. 2. No antiseizure medicine is indicated. 3. Aggressive treatment of depression as per Dr Chiang. 4. Elavil 25 mg q HS for headache. Lázaro Hale M.D., M.S.P.H. Lázaro Hale MD Nov 18, 2018 18:00
--- NOTE | 2018-11-18 20:37 | Pulmonolgy Critical Care Note ---
Critical Care - Asmt/Plan Assessment/Plan: Pulmonary CCM Consultation HPI Patient admitted after an overdose. The patient allegedly took a Seroquel and Celexa. They're unable to ascertain what time. There were multiple tablets that were taken. The patient ambulated to the [facility]. Please decreasing mentation on the way into the hospital. An EKG didn't had sinus tachycardia. The patient states he took the pills 2 hours ago and wanted to kill himself. FM O2 On antibiotics per ID Much improved, for extubation Seizure previously - Neurology following, CT negative/EEG pending On NG tube feeding Allergies: No Known Allergies (Unverified , 11/14/18) Past Medical History: none noted Physical Exam Vital Signs Noted General Appearance: non-toxic, sedated, eyes closed localizes pain vocalizes Head: normocephalic, atraumatic Eyes: bilateral eye PERRL, bilateral eye Scleral Injection ENT: moist mucus membranes Neck: supple Respiratory: chest non-tender, lungs clear, normal breath sounds Cardiovascular #1: tachycardia, HS1, HS2 RRR Abdomen: SNTND Extremities: No edema, no rashes VOICER: moves all extremities, PEERL, no seizures, no focal sign, purposeful to pain Impression: Drug overdose Respiratory failure Seizure UTI (urinary tract infection) EKG: No ischemia, ST Plan Adjust O2 Advance diet PT Monitor labs/ABG NPO Aspiration precautions Cardiac Monitoring AB per ID Psychiatry following Laboratory Tests Test 11/14/18 16:40 11/14/18 18:48 Urine Color Viviana Urine Appearance Clear Urine pH 6.5 (4.5-8.0) Urine Specific [place] 1.015 (1.005-1.035) Urine Protein 1+ (NEGATIVE) H Urine Glucose (UA) Negative (NEGATIVE) Urine Ketones Negative (NEGATIVE) Urine Blood 1+ (NEGATIVE) H Urine Nitrite Negative (NEGATIVE) Urine Bilirubin Negative (NEGATIVE) Urine Ictotest Negative (NEGATIVE) Urine Urobilinogen Normal MG/DL (0.0-1.0) Urine Leukocyte Esterase 1+ (NEGATIVE) H Urine RBC 0-2 /HPF (0 - 0) H Urine WBC 10-15 /HPF (0 - 0) H Urine Squamous Epithelial Cells Occasional /LPF Urine Amorphous Sediment Moderate /LPF (NONE) H Urine Bacteria Few /HPF (NONE) Arterial Blood pH 7.298 (7.350-7.450) Arterial Blood Partial Pressure CO2 52.3 mmHg (35.0-45.0) H Arterial Blood Partial Pressure O2 62.5 mmHg (75.0-100.0) L Arterial Blood HCO3 25.0 mmol/L (22.0-26.0) Arterial Blood Oxygen Saturation 89.7 % (95-100) *L Arterial Blood Base Excess -2.1 (-2-2) L Derek Test Positive Sodium Level 137 MMOL/L (136-145) Potassium Level 3.4 MMOL/L (3.5-5.1) L Chloride Level 99 MMOL/L (98-107) Carbon Dioxide Level 27 MMOL/L (21-32) Anion Gap 11 mmol/L (5-15) Blood Urea Nitrogen 17 mg/dL (7-18) Creatinine 1.0 MG/DL (0.55-1.30) Estimate Glomerular Filtration Rate > 60 mL/min (>60) Glucose Level 152 MG/DL (74-106) H Calcium Level 9.2 MG/DL (8.5-10.1) Total Bilirubin 0.4 MG/DL (0.2-1.0) Aspartate Amino Transferase (AST) 22 U/L (15-37) Alanine Aminotransferase (ALT) 46 U/L (12-78) Alkaline Phosphatase 99 U/L (46-116) Total Creatine Kinase 53 U/L (26-308) Troponin I 0.000 ng/mL (0.000-0.056) Total Protein 8.8 G/DL (6.4-8.2) H Albumin 4.0 G/DL (3.4-5.0) Globulin 4.8 g/dL Albumin/Globulin Ratio 0.8 (1.0-2.7) L Salicylates Level 1.7 ug/mL (2.8-20) L Urine Opiates Screen Negative (NEGATIVE) Acetaminophen Level < 2 MCG/ML (10-30) L Urine Barbiturates Screen Negative (NEGATIVE) Phencyclidine (PCP) Screen Negative (NEGATIVE) Urine Amphetamines Screen Negative (NEGATIVE) Urine Benzodiazepines Screen Negative (NEGATIVE) Urine Cocaine Screen Negative (NEGATIVE) Urine Marijuana (THC) Screen Negative (NEGATIVE) Serum Alcohol < 3 mg/dL White Blood Count 9.8 K/UL (4.8-10.8) Red Blood Count 5.33 M/UL (4.70-6.10) Hemoglobin 10.5 G/DL (14.2-18.0) L Hematocrit 34.8 % (42.0-52.0) L Mean Corpuscular Volume 65 FL (80-99) L Mean Corpuscular Hemoglobin 19.6 PG (27.0-31.0) L Mean Corpuscular Hemoglobin Concent 30.0 G/DL (32.0-36.0) L Red Cell Distribution Width 15.1 % (11.6-14.8) H Platelet Count 150 K/UL (150-450) Mean Platelet Volume 8.1 FL (6.5-10.1) Neutrophils (%) (Auto) 81.1 % (45.0-75.0) H Lymphocytes (%) (Auto) 11.4 % (20.0-45.0) L Monocytes (%) (Auto) 6.4 % (1.0-10.0) Eosinophils (%) (Auto) 0.5 % (0.0-3.0) Basophils (%) (Auto) 0.7 % (0.0-2.0) Rhythm Strip Diag. Results EP Interpretation: yes Rhythm: no PVC's, no ectopy, other - ST Chest X-Ray Diagnostic Results Chest X-Ray Diagnostic Results : Chest X-Ray Ordered: Yes # of Views/Limited/Complete: 1 View Indication: Other EP Interpretation: Yes Interpretation: no consolidation, no effusion, no pneumothorax, other - poor inspiration Critical Care - Objective Last 24 Hour Vital Signs Date Time Temp Pulse Resp B/P (MAP) Pulse Ox O2 Delivery O2 Flow Rate FiO2 11/18/18 20:01 89 20 99 Nasal Cannula 2.0 28 11/18/18 20:00 88 20 98 Nasal Cannula 2.0 28 11/18/18 20:00 Nasal Cannula 2.0 28 11/18/18 19:59 98 Nasal Cannula 2.0 28 11/18/18 18:00 85 16 152/85 (107) 95 11/18/18 17:00 86 16 139/85 (103) 95 11/18/18 16:46 98.9 11/18/18 16:00 81 11/18/18 16:00 Venturi Mask Venturi Mask 11/18/18 16:00 100.1 82 16 139/85 (103) 98 12/20/18 15:00 82 18 142/86 (104) 93 11/18/18 14:50 89 22 96 Nasal Cannula 2.0 28 11/18/18 14:45 86 22 98 Nasal Cannula 2.0 28 11/18/18 14:00 79 18 96 18 13:00 77 17 137/83 (101) 96 11/18/18 12:00 Venturi Mask Venturi Mask 11/18/18 12:00 75 17 128/85 (99) 96 11/18/18 12:00 74 11/18/18 11:26 73 14 96 Nasal Cannula 2.0 28 11/18/18 11:21 76 19 98 Nasal Cannula 4.0 36 11/18/18 11:00 73 16 123/75 (91) 98 11/18/18 10:00 73 16 119/74 (89) 96 11/18/18 09:00 70 16 123/63 (83) 96 11/18/18 08:00 73 11/18/18 08:00 99.2 69 16 125/49 (74) 97 11/18/18 08:00 Venturi Mask Venturi Mask 11/18/18 07:30 Venturi Mask 12.0 50 11/18/18 07:30 98 Venturi Mask 12.0 50 11/18/18 07:30 73 15 96 Nasal Cannula 4.0 36 11/18/18 07:25 68 19 98 Venturi Mask 12.0 50 11/18/18 07:00 78 18 129/69 (89) 96 11/18/18 06:00 77 17 111/66 (81) 96 11/18/18 05:00 71 17 123/67 (85) 96 11/18/18 04:00 Venturi Mask Venturi Mask 11/18/18 04:00 86 11/18/18 04:00 82 20 123/78 (93) 95 11/18/18 03:26 72 19 96 Venturi Mask 10.0 50 11/18/18 03:22 82 21 96 Venturi Mask 10.0 50 11/18/18 03:00 99.1 83 20 124/56 (78) 94 11/18/18 02:00 72 20 132/62 (85) 94 11/18/18 01:11 Venturi Mask 10.0 50 11/18/18 01:11 96 Venturi Mask 10.0 50 11/18/18 01:00 77 20 136/52 (80) 93 11/18/18 00:00 86 11/18/18 00:00 Venturi Mask Venturi Mask 11/18/18 00:00 100.0 88 21 141/83 (102) 95 11/17/18 23:05 100.2 85 20 142/85 (104) 96 11/17/18 23:00 90 20 142/85 (104) 94 11/17/18 22:40 89 21 96 Venturi Mask 10.0 50 11/17/18 22:35 88 21 95 Venturi Mask 10.0 50 11/17/18 22:00 100.0 88 20 149/83 (105) 94 11/17/18 21:00 85 22 143/89 (107) 93 Micro: Microbiology Date/Time Source Procedure Growth Status 11/17/18 08:55 Blood Blood Culture - Preliminary NO GROWTH AFTER 24 HOURS Resulted 11/17/18 08:40 Blood Blood Culture - Preliminary NO GROWTH AFTER 24 HOURS Resulted 11/17/18 08:20 Sputum Induced Gram Stain - Final Resulted 11/17/18 08:20 Sputum Induced Sputum Culture - Preliminary NORMAL UPPER RESPIRATORY MONISHA AT 24 ... Resulted 11/17/18 09:15 Indwelling Cath Urine Culture - Preliminary NO GROWTH Resulted Critical Care - Subjective ROS Limited/Unobtainable: No Condition: improving IV Access: peripheral EKG Rhythm: Sinus Rhythm FI02: 28 Vent Support Breath Rate: 22 Vent Support Mode: CPAP Vent Tidal Volume: 500 Sputum Amount: None PEEP: 5.0 PIP: 41 Tube Feeding Amount: 40 I&O: Intake and Output 11/17/18 11/18/18 19:00 07:00 Intake Total 2014.916 ml 1215 ml Output Total 1490 ml 2650 ml Balance 524.916 ml -1435 ml Intake Oral 100 ml 60 ml Free Water 50 ml IV Total 1864.916 ml 1155 ml Output Urine Total 1490 ml 2650 ml ET-Tube: 7.5 ET Position: 22 Kwame Gandara MD Nov 18, 2018 20:37
[2018-11-19] VITALS (22 sets, daily range): BP systolic 94–158; BP diastolic 49–91
[2018-11-19 06:18] LABS: ANION GAP 8 mmol/L (5-15); BLOOD UREA NITROGEN 7 mg/dL (7-18); CALCIUM 8.9 MG/DL (8.5-10.1); CARBON DIOXIDE 28 MMOL/L (21-32); CHLORIDE 100 MMOL/L (98-107); CREATININE 1.1 MG/DL (0.55-1.30); POTASSIUM 3.4 MMOL/L (3.5-5.1); SODIUM 136 MMOL/L (136-145)
[2018-11-19 06:23] LABS: BASOPHILS % (AUTO) 0.8 % (0.0-2.0); EOSINOPHILS % (AUTO) 3.3 % (0.0-3.0); HEMATOCRIT 39.9 % (42.0-52.0); HEMOGLOBIN 12.1 G/DL (14.2-18.0); LYMPHOCYTES % (AUTO) 17.3 % (20.0-45.0); MEAN CORPUSCULAR VOLUME 67 FL (80-99); MONOCYTES % (AUTO) 9.4 % (1.0-10.0); NEUTROPHILS % (AUTO) 69.2 % (45.0-75.0); PLATELET COUNT 179 K/UL (150-450); RED BLOOD COUNT 5.99 M/UL (4.70-6.10); RED CELL DISTRIBUTION WIDTH 14.4 % (11.6-14.8); WHITE BLOOD COUNT 7.1 K/UL (4.8-10.8)
[2018-11-19 06:48] LABS: ALANINE AMINOTRANSFERASE 25 U/L (12-78); ALKALINE PHOSPHATASE 96 U/L (46-116); ASPARTATE AMINO TRANSFERASE 25 U/L (15-37); BILIRUBIN,DIRECT 0.1 MG/DL (0.0-0.3); BILIRUBIN,TOTAL 0.3 MG/DL (0.2-1.0); PHOSPHORUS 2.6 MG/DL (2.5-4.9)
[2018-11-19] MEDS: Vancomycin 1gm in D5W 275ml IVPB SCH (07:01)
[2018-11-19] MEDS ORDERED: Citalopram Hydrobromide 10mg Tab ORAL SCH (09:00)
[2018-11-19] MEDS: Pantoprazole Inj IVP SCH (09:07)
[2018-11-19] MEDS: Cefepime HCl 2 GM in D5W 55 ML IVPB SCH (09:08)
[2018-11-19] MEDS: Heparin 5000 units/ml inj SUBQ SCH ×2 (09:09→20:44)
--- NOTE | 2018-11-19 13:07 | Nephrology Progress Note ---
Assessment/Plan Problem List: (1) Respiratory failure Assessment: now extubated (2) UTI (urinary tract infection) (3) Drug overdose (4) Acute renal failure Assessment: Cr now wnl (5) High triglycerides Assessment: on Gemfibrozil Assessment Drug overdose Respiratory failure NOW EXTUBATED UTI (urinary tract infection) EKG: No ischemia, ST h/o Psych disease mild anemia high Trigs Cr up to 1.4 back to 1.2 Plan murray voiding well. Hydrate- po Aim to correct lytes, K and mag as needed Monitor renal parameters Avoid nephrotoxics venofer one dose given gemfibrozil per psych Subjective Constitutional: Reports: malaise Objective Objective Last 24 Hour Vital Signs Date Time Temp Pulse Resp B/P (MAP) Pulse Ox O2 Delivery O2 Flow Rate FiO2 11/19/18 12:00 Room Air Room Air 11/19/18 10:00 87 20 119/83 (95) 94 11/19/18 09:00 89 20 135/77 (96) 95 11/19/18 08:00 Room Air Room Air 11/19/18 08:00 75 11/19/18 08:00 76 17 95 11/19/18 07:53 74 16 96 Room Air 21 11/19/18 07:44 97 Room Air 75 11/19/18 07:44 Room Air 21 11/19/18 07:00 99.6 82 20 122/77 (92) 94 11/19/18 06:00 79 21 123/67 (85) 93 11/19/18 05:00 79 21 142/81 (101) 93 11/19/18 04:00 Room Air Room Air 11/19/18 04:00 90 11/19/18 04:00 99.0 81 19 142/81 (101) 94 11/19/18 03:19 Nasal Cannula 11/19/18 03:19 Nasal Cannula 11/19/18 03:00 79 21 142/81 (101) 94 11/19/18 02:00 83 21 121/61 (81) 95 11/19/18 01:00 83 21 139/81 (100) 98 11/19/18 00:00 99.5 84 20 158/80 (106) 98 11/19/18 00:00 Room Air Room Air 11/19/18 00:00 84 11/18/18 23:48 Nasal Cannula 2.0 28 11/18/18 23:47 Nasal Cannula 2.0 28 11/18/18 23:00 83 21 158/80 (106) 98 11/18/18 22:00 84 17 127/80 (96) 98 11/18/18 21:00 82 16 107/60 (76) 95 11/18/18 20:01 89 20 99 Nasal Cannula 2.0 28 11/18/18 20:00 99.3 84 16 127/77 (94) 95 11/18/18 20:00 88 20 98 Nasal Cannula 2.0 28 11/18/18 20:00 84 11/18/18 20:00 Nasal Cannula 2.0 28 11/18/18 20:00 Nasal Cannula 2.0 Nasal Cannula 2.0 11/18/18 19:59 98 Nasal Cannula 2.0 28 11/18/18 19:00 85 16 127/77 (94) 95 11/18/18 18:00 85 16 152/85 (107) 95 11/18/18 17:00 86 16 139/85 (103) 95 11/18/18 16:46 98.9 11/18/18 16:00 81 11/18/18 16:00 Venturi Mask Venturi Mask 11/18/18 16:00 100.1 82 16 139/85 (103) 98 11/18/18 15:00 82 18 142/86 (104) 93 11/18/18 14:50 89 22 96 Nasal Cannula 2.0 28 11/18/18 14:45 86 22 98 Nasal Cannula 2.0 28 11/18/18 14:00 79 18 96 Intake and Output 11/18/18 11/19/18 19:00 07:00 Intake Total 210 ml 530.000 ml Output Total 1080 ml 1500 ml Balance -870 ml -970.000 ml Intake Oral 100 ml IV Total 210 ml 430.000 ml Output Urine Total 1080 ml 1500 ml # Voids 1 Laboratory Tests 11/18/18 21:00: Vancomycin Level Trough 6.9 11/19/18 04:46: White Blood Count 7.1, Red Blood Count 5.99, Hemoglobin 12.1L, Hematocrit 39.9L , Mean Corpuscular Volume 67L, Mean Corpuscular Hemoglobin 20.2L, Mean Corpuscular Hemoglobin Concent 30.3L, Red Cell Distribution Width 14.4, Platelet Count 179, Mean Platelet Volume 6.9, Neutrophils (%) (Auto) 69.2, Lymphocytes (%) (Auto) 17.3L, Monocytes (%) (Auto) 9.4, Eosinophils (%) (Auto) 3.3H, Basophils (%) (Auto) 0.8, Sodium Level 136, Potassium Level 3.4L, Chloride Level 100, Carbon Dioxide Level 28, Anion Gap 8, Blood Urea Nitrogen 7 , Creatinine 1.1, Estimat Glomerular Filtration Rate > 60, Glucose Level 104, Calcium Level 8.9, Phosphorus Level 2.6, Magnesium Level 1.6L, Total Bilirubin 0.3, Direct Bilirubin 0.1, Aspartate Amino Transf (AST/SGOT) 25, Alanine Aminotransferase (ALT/SGPT) 25, Alkaline Phosphatase 96, Total Protein 7.0, Albumin 3.0L Height (Feet): 5 Height (Inches): 6.00 Weight (Pounds): 198 General Appearance: no apparent distress Neck: non-tender Cardiovascular: normal rate Respiratory/Chest: lungs clear Abdomen: soft, other - obese Objective no change Mark Llanes MD Nov 19, 2018 13:07
--- NOTE | 2018-11-19 13:36 | Infectious Diseases Prog Note ---
Assessment/Plan Assessment/Plan ASSESSMENT AND PLAN: 1. Fevers, ? aspiration event/pna, ? sepsis - change abx to rocephin plus flagyl - cultures negative - monitor labs, chest x-ray and labs, monitor temps 2. overdose secondary to Seroquel and Celexa - supportive tx per primary and consultants 3. History of bipolar disease per the records. 4. Anxiety. 5. ADHD. 6. No history of diabetes or hypertension. 7. No known allergies. 8. Social history negative. 9. Family history noncontributory. 10. MAR was noted. 11. Case discussed with RN. 12. ICU care. 13. Continue treatment per primary consultants. Subjective Constitutional: Reports: fever - lgt, fatigue HEENT: Denies: congestion Respiratory: Denies: shortness of breath Cardiovascular: Denies: chest pain Gastrointestinal/Abdominal: Denies: nausea, vomiting, diarrhea Genitourinary: Denies: dysuria Neurologic: Denies: headache Psychiatric: Denies: depression Skin: Denies: rash Hematologic: Denies: bleeding Musculoskeletal: Denies: pain Allergies: Coded Allergies: No Known Allergies (Unverified , 11/14/18) UNABLE TO ASSESS (Unverified , 04/10/17) Patient stated that he is allergic to some antibiotics but unable to provide the name Objective Vital Signs Last 24 Hour Vital Signs Date Time Temp Pulse Resp B/P (MAP) Pulse Ox O2 Delivery O2 Flow Rate FiO2 11/19/18 12:00 Room Air Room Air 11/19/18 10:00 87 20 119/83 (95) 94 11/19/18 09:00 89 20 135/77 (96) 95 11/19/18 08:00 Room Air Room Air 11/19/18 08:00 75 11/19/18 08:00 76 17 95 11/19/18 07:53 74 16 96 Room Air 21 11/19/18 07:44 97 Room Air 75 11/19/18 07:44 Room Air 21 11/19/18 07:00 99.6 82 20 122/77 (92) 94 11/19/18 06:00 79 21 123/67 (85) 93 11/19/18 05:00 79 21 142/81 (101) 93 11/19/18 04:00 Room Air Room Air 11/19/18 04:00 90 11/19/18 04:00 99.0 81 19 142/81 (101) 94 18 03:19 Nasal Cannula 11/19/18 03:19 Nasal Cannula 11/19/18 03:00 79 21 142/81 (101) 94 11/19/18 02:00 83 21 121/61 (81) 95 11/19/18 01:00 83 21 139/81 (100) 98 11/19/18 00:00 99.5 84 20 158/80 (106) 98 11/19/18 00:00 Room Air Room Air 11/19/18 00:00 84 11/18/18 23:48 Nasal Cannula 2.0 28 11/18/18 23:47 Nasal Cannula 2.0 28 11/18/18 23:00 83 21 158/80 (106) 98 11/18/18 22:00 84 17 127/80 (96) 98 11/18/18 21:00 82 16 107/60 (76) 95 11/18/18 20:01 89 20 99 Nasal Cannula 2.0 28 11/18/18 20:00 99.3 84 16 127/77 (94) 95 11/18/18 20:00 88 20 98 Nasal Cannula 2.0 28 11/18/18 20:00 84 11/18/18 20:00 Nasal Cannula 2.0 28 11/18/18 20:00 Nasal Cannula 2.0 Nasal Cannula 2.0 11/18/18 19:59 98 Nasal Cannula 2.0 28 11/18/18 19:00 85 16 127/77 (94) 95 11/18/18 18:00 85 16 152/85 (107) 95 11/18/18 17:00 86 16 139/85 (103) 95 11/18/18 16:46 98.9 11/18/18 16:00 81 11/18/18 16:00 Venturi Mask Venturi Mask 11/18/18 16:00 100.1 82 16 139/85 (103) 98 11/18/18 15:00 82 18 142/86 (104) 93 11/18/18 14:50 89 22 96 Nasal Cannula 2.0 28 11/18/18 14:45 86 22 98 Nasal Cannula 2.0 28 11/18/18 14:00 79 18 96 Height (Feet): 5 Height (Inches): 6.00 Weight (Pounds): 198 General Appearance: no acute distress HEENT: normocephalic, atraumatic, anicteric, mucous membranes moist Respiratory/Chest: crackles/rales, rhonchi - bilaterally Cardiovascular: normal rate, regular rhythm, no gallop/murmur, no JVD Abdomen: normal bowel sounds, soft, non tender, no organomegaly, non distended Genitourinary: other - no murray Extremities: no cyanosis Skin: no rash 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 Heart size and mediastinal contours stable. Change elevation of the right hemidiaphragm. Interval decrease in retrocardiac exam linear opacities at the left base. Impression: * Interval removal of endotracheal tube. * Improved aeration of the left lung base with decreased retrocardiac and linear opacities. Microbiology Date/Time Source Procedure Growth Status 11/17/18 08:55 Blood Blood Culture - Preliminary NO GROWTH AFTER 24 HOURS Resulted 11/17/18 08:20 Sputum Induced Gram Stain - Final Complete 11/17/18 08:20 Sputum Induced Sputum Culture - Final NORMAL UPPER RESPIRATORY MONISHA PRESENT Complete 11/17/18 09:15 Indwelling Cath Urine Culture - Preliminary NO GROWTH AFTER 24 HOURS Resulted 11/14/18 17:14 Rectum VRE Culture - Final NO VANCOMYCIN RESISTANT ENTEROCOCCUS ... Complete 11/14/18 17:14 Rectum - Final NO CARBAPENEM-RESISTANT ENTEROBACTERI... Complete Microbiology Date/Time Source Procedure Growth Status 11/17/18 08:55 Blood Blood Culture - Preliminary NO GROWTH AFTER 24 HOURS Resulted 11/17/18 08:40 Blood Blood Culture - Preliminary NO GROWTH AFTER 24 HOURS Resulted 11/17/18 08:20 Sputum Induced Gram Stain - Final Complete 11/17/18 08:20 Sputum Induced Sputum Culture - Final NORMAL UPPER RESPIRATORY MONISHA PRESENT Complete 11/17/18 09:15 Indwelling Cath Urine Culture - Preliminary NO GROWTH AFTER 24 HOURS Resulted Laboratory Tests Test 11/18/18 21:00 11/19/18 04:46 Vancomycin Level Trough 6.9 ug/mL (5.0-12.0) White Blood Count 7.1 K/UL (4.8-10.8) Red Blood Count 5.99 M/UL (4.70-6.10) Hemoglobin 12.1 G/DL (14.2-18.0) L Hematocrit 39.9 % (42.0-52.0) L Mean Corpuscular Volume 67 FL (80-99) L Mean Corpuscular Hemoglobin 20.2 PG (27.0-31.0) L Mean Corpuscular Hemoglobin Concent 30.3 G/DL (32.0-36.0) L Red Cell Distribution Width 14.4 % (11.6-14.8) Platelet Count 179 K/UL (150-450) Mean Platelet Volume 6.9 FL (6.5-10.1) Neutrophils (%) (Auto) 69.2 % (45.0-75.0) Lymphocytes (%) (Auto) 17.3 % (20.0-45.0) L Monocytes (%) (Auto) 9.4 % (1.0-10.0) Eosinophils (%) (Auto) 3.3 % (0.0-3.0) H Basophils (%) (Auto) 0.8 % (0.0-2.0) Sodium Level 136 MMOL/L (136-145) Potassium Level 3.4 MMOL/L (3.5-5.1) L Chloride Level 100 MMOL/L (98-107) Carbon Dioxide Level 28 MMOL/L (21-32) Anion Gap 8 mmol/L (5-15) Blood Urea Nitrogen 7 mg/dL (7-18) Creatinine 1.1 MG/DL (0.55-1.30) Estimat Glomerular Filtration Rate > 60 mL/min (>60) Glucose Level 104 MG/DL (74-106) Calcium Level 8.9 MG/DL (8.5-10.1) Phosphorus Level 2.6 MG/DL (2.5-4.9) Magnesium Level 1.6 MG/DL (1.8-2.4) L Total Bilirubin 0.3 MG/DL (0.2-1.0) Direct Bilirubin 0.1 MG/DL (0.0-0.3) Aspartate Amino Transf (AST/SGOT) 25 U/L (15-37) Alanine Aminotransferase (ALT/SGPT) 25 U/L (12-78) Alkaline Phosphatase 96 U/L (46-116) Total Protein 7.0 G/DL (6.4-8.2) Albumin 3.0 G/DL (3.4-5.0) L Current Medications Medications (Trade) Dose Ordered Sig/Oliva Route PRN Reason Start Time Stop Time Status Last Admin Dose Admin Acetaminophen (Tylenol) 650 mg Q6H PRN ORAL Mild Pain/Temp > 100.0 11/17/18 08:30 12/17/18 08:29 11/18/18 16:16 Amitriptyline HCl (Elavil) 25 mg BEDTIME ORAL 11/18/18 21:00 12/18/18 20:59 11/18/18 21:01 Cefepime HCl 2 gm/ Dextrose 55 ml @ 110 mls/hr EVERY 12 HOURS IVPB 11/17/18 21:00 11/24/18 20:59 11/19/18 09:08 Citalopram Hydrobromide (celeXA) 20 mg DAILY ORAL 11/19/18 09:00 12/19/18 08:59 11/19/18 09:08 Gemfibrozil (Lopid) 600 mg TWICE A DAY NG 11/17/18 18:00 12/17/18 17:59 11/19/18 09:08 Heparin Sodium (Porcine) (Heparin 5000 units/ml) 5,000 units EVERY 12 HOURS SUBQ 11/14/18 21:00 12/14/18 20:59 11/19/18 09:09 Lorazepam (Ativan 2mg/ml 1ml) 1 mg Q2H PRN IM Agitation 11/15/18 13:00 11/22/18 12:59 11/15/18 16:24 Lorazepam (Ativan 2mg/ml 1ml) 1 mg Q6H PRN IV For Seizures 11/15/18 15:00 11/22/18 14:59 Magnesium Oxide (Mag-Ox 400mg) 400 mg THREE TIMES A DAY ORAL 11/19/18 18:00 12/19/18 17:59 Metronidazole 100 ml @ 100 mls/hr Q8HR IVPB 11/15/18 16:00 11/22/18 15:59 11/19/18 06:01 Pantoprazole (Protonix) 40 mg DAILY ORAL 11/20/18 09:00 12/20/18 08:59 Potassium Chloride (K-Dur) 40 meq DAILY ORAL 11/20/18 09:00 12/20/18 08:59 Potassium Chloride (K-Dur) 40 meq ONCE ORAL 11/19/18 13:15 11/19/18 14:15 Vancomycin HCl (Vanco rx to dose) 1 ea DAILY PRN MISC Per rx protocol 11/17/18 08:15 12/17/18 08:14 Vancomycin HCl 1 gm/Dextrose 275 ml @ 183.708 mls/hr Q8H IVPB 11/18/18 23:00 11/23/18 22:59 11/19/18 07:01 Markos Billings MD Nov 19, 2018 13:36
[2018-11-19] MEDS ORDERED: cefTRIAXone 1 GM in D5W 50 ML IVPB SCH (15:00)
--- NOTE | 2018-11-19 16:15 | Neurology Progress Note ---
Interim History Interim History Interim History Mr. Grace feels much better. He is breathing well. His voice is normal. He feels better with regards to his mood. The mind is clear. He is able to communicate well. His strength is excellent. His headache is like it has been for the last 40 years. He got up and walked to the bathroom twice. His legs carried him well. He denies any neurologic symptoms. Review of Systems Neuro Review of Systems Benign. Objective Physical Exam Last Vital Signs Date Time Temp Pulse Resp B/P (MAP) Pulse Ox O2 Delivery O2 Flow Rate FiO2 11/19/18 15:00 74 16 132/85 (101) 95 11/19/18 12:00 Room Air Room Air 11/19/18 12:00 99.0 11/19/18 07:53 21 11/18/18 23:48 2.0 Laboratory Tests Test 11/18/18 21:00 11/19/18 04:46 Vancomycin Level Trough 6.9 ug/mL (5.0-12.0) White Blood Count 7.1 K/UL (4.8-10.8) Red Blood Count 5.99 M/UL (4.70-6.10) Hemoglobin 12.1 G/DL (14.2-18.0) L Hematocrit 39.9 % (42.0-52.0) L Mean Corpuscular Volume 67 FL (80-99) L Mean Corpuscular Hemoglobin 20.2 PG (27.0-31.0) L Mean Corpuscular Hemoglobin Concent 30.3 G/DL (32.0-36.0) L Red Cell Distribution Width 14.4 % (11.6-14.8) Platelet Count 179 K/UL (150-450) Mean Platelet Volume 6.9 FL (6.5-10.1) Neutrophils (%) (Auto) 69.2 % (45.0-75.0) Lymphocytes (%) (Auto) 17.3 % (20.0-45.0) L Monocytes (%) (Auto) 9.4 % (1.0-10.0) Eosinophils (%) (Auto) 3.3 % (0.0-3.0) H Basophils (%) (Auto) 0.8 % (0.0-2.0) Sodium Level 136 MMOL/L (136-145) Potassium Level 3.4 MMOL/L (3.5-5.1) L Chloride Level 100 MMOL/L (98-107) Carbon Dioxide Level 28 MMOL/L (21-32) Anion Gap 8 mmol/L (5-15) Blood Urea Nitrogen 7 mg/dL (7-18) Creatinine 1.1 MG/DL (0.55-1.30) Estimat Glomerular Filtration Rate > 60 mL/min (>60) Glucose Level 104 MG/DL (74-106) Calcium Level 8.9 MG/DL (8.5-10.1) Phosphorus Level 2.6 MG/DL (2.5-4.9) Magnesium Level 1.6 MG/DL (1.8-2.4) L Total Bilirubin 0.3 MG/DL (0.2-1.0) Direct Bilirubin 0.1 MG/DL (0.0-0.3) Aspartate Amino Transf (AST/SGOT) 25 U/L (15-37) Alanine Aminotransferase (ALT/SGPT) 25 U/L (12-78) Alkaline Phosphatase 96 U/L (46-116) Total Protein 7.0 G/DL (6.4-8.2) Albumin 3.0 G/DL (3.4-5.0) L Neurologic Exam Objective PHYSICAL EXAMINATION: GENERAL: He is a well-developed, well-nourished slightly obese gentleman, lying in an ICU bed in no acute distress. HEAD: Head is normocephalic and atraumatic. EENT: Examination benign. NECK: No neck rigidity was observed. NEUROLOGICAL EXAMINATION: MENTAL STATUS EXAMINATION: He was awake and alert. He was oriented to self, [facility] and 2017. He was able to recall 3/3 words immediately and could remember them in 1 and 3 minutes. He was able to remember presidents Trump through [employer]. His mathematical skills were good. His visuospatial function was preserved. SPEECH: His voice was normal. LANGUAGE: He had no aphasia. CRANIAL NERVE EXAMINATION: II: The visual sims were intact on confrontation. III, IV & : The external ocular movements were full and the pupils were 3 mm in diameter, equal, round, regular, and reactive to light. V: He had normal facial sensations and the temporales, masseters and pterygoids functioned normally. VII: He had normal facial expressions and no facial asymmetry. VIII: He was able to hear well and had no nystagmus. IX: The palate moved symmetrically on phonation. X: The voice was hoarse. XI: The sternocleidomastoids and trapezii did function. XII: The tongue was in the midline without fasciculations or atrophy. MOTOR SYSTEM: The tone was normal in all four extremities. Examination of muscle mass revealed no focal wasting. Examination of power revealed G 5/5 power. SENSORY EXAMINATION: He had intact sensations to light touch and graphesthesia. REFLEXES: 2+ and bilaterally symmetrical at the biceps, triceps, brachioradialis, and knees. 1+ at both ankles. The plantar responses were flexor bilaterally. COORDINATION: He performed well on finger to nose testing. STANCE & GAIT: Could not be tested. Impression/Recommendations Diagnostic Impression 1. Mr. Nabil Grace is a 48-year-old, gentleman, of unknown handedness, who does have a past history of bipolar affective disorder, who was hospitalized on 11/14/2018 after he overdosed on an unknown quantity of Seroquel and Celexa. He was brought into the [facility] emergency room and was placed on BiPAP. Of note is that a stomach lavage was not performed. He was then transferred to the ICU and was on BiPAP in the ICU until it was discontinued at approximately 1130 hours. At approximately 1415 hours, he was noted to have an episode of generalized clonic movements, lasting approximately 10 seconds associated with severe oxygen desaturation and worsening of his mental state. He was bagged immediately and soon afterwards he was intubated and artificially ventilated. He was then sedated with propofol and fentanyl. 2. He feels much better. He is breathing well. His voice is normal. He feels better with regards to his mood. The mind is clear. He is able to communicate well. His strength is excellent. His headache is like it has been for the last 40 years. He got up and walked to the bathroom twice. His legs carried him well. He denies any neurologic symptoms. 3. He has had a daily headache for the last 40 years, which he localizes inside his head. It is a pressure-like sensation. The headache gets better when he is less anxious and depressed and gets worse when he more anxious and depressed. Over the years he has been given various different drugs and none of them have worked. 4. On neurological examination, at this time, he is awake and alert. He is fully oriented. He is able to recall 3/3 words immediately and can remember them in 1 and 3 minutes. He is able to remember presidents Trump through [employer]. His mathematical skills are good. His visuospatial function is preserved. His voice is less hoarse. He had no aphasia. His cranial nerve function, motor function, and sensory function are normal. His reflexes are normal and symmetrical. 5. His latest laboratory data on my initial evaluation revealed that he was anemic with a hemoglobin of 13.1. His arterial blood gas following the event revealed a pH of 7.29, a pCO2 of 48, a pO2 of 76, and a bicarbonate of 22.5. His chemistry panel revealed a BUN elevated at 19 and low calcium at 8.3. His urinalysis revealed 1+ leukocyte esterase, 0-2 RBCs, and 10-15 WBCs per high- power field. His urine toxicology screen was negative. 6. The Brain CT done on 11/16/18 was normal. 7. His EEG done on 11/16/18 revealed a mild encephalopathy. 8. It is still unclear if the episode of abnormal clonic movements was due to a hypoxic event or a true seizure. 9. His encephalopathy however is improving well. 10. He has had headache for the last 40 years. It is difficult to classify the headache. He has been started on Elavil for it and tolerated it well last night. Recommendations 1. Continue present management. 2. Aggressive treatment of depression as per Dr Chiang. 3. Elavil 25 mg q HS for headache. Lázaro Hale M.D., M.S.P.H. Lázaro Hale MD Nov 19, 2018 16:15
[2018-11-19] MEDS ORDERED: Magnesium Oxide 400mg tab ORAL SCH (18:00)
[2018-11-19] MEDS ORDERED: NS 275ml ONE (19:38)
[2018-11-19] MEDS ORDERED: Tubing IV Secondary IV ONE (19:38)
[2018-11-19] MEDS ORDERED: D5NS 1000ml IV ONE (19:38)
[2018-11-19] MEDS ORDERED: LORazepam Inj 2mg/ml 1ml IV PRN (21:46)
[2018-11-19] MEDS ORDERED: LORazepam Inj 2mg/ml 1ml IM PRN (21:46)
--- NOTE | 2018-11-19 23:35 | General Progress Note ---
Assessment/Plan Problem List: (1) Bipolar disorder ICD Codes: F31.9 - Bipolar disorder, unspecified SNOMED: 83713551 Qualifiers: (2) encephalopathy due to toxin Status: stable Assessment/Plan increase Ativan prn to 1mg IM q2hr cont to monitor the pt is at imminent dts/sto the pt was provide st transfer to psychiatric unit Subjective Neurologic/Psychiatric: Reports: anxiety, depressed Allergies: Coded Allergies: LURASIDONE (Verified Allergy, Severe, 11/19/18) pt states he has severe reaction Subjective No agitation the pt is still on life support and now is aaox4. The pt is more anxious and suicidal thoughts. The pt stated that he feels lonely and hopeless. The pt stated that he recently lost his dogs and house. the pt stated that he couldn't go back to the previous facility. the pt is hopeless and lonely Objective Last 24 Hour Vital Signs Date Time Temp Pulse Resp B/P (MAP) Pulse Ox O2 Delivery O2 Flow Rate FiO2 11/19/18 21:00 74 16 123/90 (101) 98 11/19/18 20:00 98.6 77 20 123/90 (101) 96 11/19/18 20:00 Room Air 11/19/18 20:00 76 11/19/18 19:55 Room Air 21 11/19/18 19:55 97 Room Air 21 11/19/18 19:00 79 19 139/80 (99) 98 11/19/18 18:00 94 19 126/75 (92) 98 11/19/18 17:00 79 19 111/76 (88) 95 11/19/18 16:00 Room Air Room Air 11/19/18 16:00 99.0 95 17 113/91 (98) 95 11/19/18 16:00 92 11/19/18 15:00 74 16 132/85 (101) 95 11/19/18 14:00 82 16 126/67 (86) 95 11/19/18 13:00 84 16 126/67 (86) 98 11/19/18 12:00 Room Air Room Air 11/19/18 12:00 77 11/19/18 12:00 99.0 77 13 131/78 (95) 100 11/19/18 11:00 79 19 94/49 (64) 93 11/19/18 10:00 87 20 119/83 (95) 94 11/19/18 09:00 89 20 135/77 (96) 95 11/19/18 08:00 Room Air Room Air 11/19/18 08:00 75 11/19/18 08:00 76 17 95 11/19/18 07:53 74 16 96 Room Air 21 11/19/18 07:44 97 Room Air 75 11/19/18 07:44 Room Air 21 11/19/18 07:00 99.6 82 20 122/77 (92) 94 11/19/18 06:00 79 21 123/67 (85) 93 11/19/18 05:00 79 21 142/81 (101) 93 11/19/18 04:00 Room Air Room Air 11/19/18 04:00 90 11/19/18 04:00 99.0 81 19 142/81 (101) 94 11/19/18 03:19 Nasal Cannula 11/19/18 03:19 Nasal Cannula 11/19/18 03:00 79 21 142/81 (101) 94 11/19/18 02:00 83 21 121/61 (81) 95 11/19/18 01:00 83 21 139/81 (100) 98 11/19/18 00:00 99.5 84 20 158/80 (106) 98 11/19/18 00:00 Room Air Room Air 11/19/18 00:00 84 11/18/18 23:48 Nasal Cannula 2.0 28 11/18/18 23:47 Nasal Cannula 2.0 28 Intake and Output 11/18/18 11/19/18 19:00 07:00 Intake Total 210 ml 530.000 ml Output Total 1080 ml 1500 ml Balance -870 ml -970.000 ml Intake Oral 100 ml IV Total 210 ml 430.000 ml Output Urine Total 1080 ml 1500 ml # Voids 1 Laboratory Tests 11/19/18 04:46: White Blood Count 7.1, Red Blood Count 5.99, Hemoglobin 12.1L, Hematocrit 39.9L , Mean Corpuscular Volume 67L, Mean Corpuscular Hemoglobin 20.2L, Mean Corpuscular Hemoglobin Concent 30.3L, Red Cell Distribution Width 14.4, Platelet Count 179, Mean Platelet Volume 6.9, Neutrophils (%) (Auto) 69.2, Lymphocytes (%) (Auto) 17.3L, Monocytes (%) (Auto) 9.4, Eosinophils (%) (Auto) 3.3H, Basophils (%) (Auto) 0.8, Sodium Level 136, Potassium Level 3.4L, Chloride Level 100, Carbon Dioxide Level 28, Anion Gap 8, Blood Urea Nitrogen 7 , Creatinine 1.1, Estimat Glomerular Filtration Rate > 60, Glucose Level 104, Calcium Level 8.9, Phosphorus Level 2.6, Magnesium Level 1.6L, Total Bilirubin 0.3, Direct Bilirubin 0.1, Aspartate Amino Transf (AST/SGOT) 25, Alanine Aminotransferase (ALT/SGPT) 25, Alkaline Phosphatase 96, Total Protein 7.0, Albumin 3.0L Height (Feet): 5 Height (Inches): 6.00 Weight (Pounds): 198 General Appearance: no apparent distress, alert Neurologic: oriented x 3, responsive, depressed affect Nery Chiang MD Nov 19, 2018 23:35
[2018-11-20] VITALS (7 sets, daily range): BP systolic 123–150; BP diastolic 66–91
--- NOTE | 2018-11-20 02:26 | Pulmonolgy Critical Care Note ---
Critical Care - Asmt/Plan Assessment/Plan: Pulmonary CCM Progress Note Date Patient seen: 11/19/2018 HPI Patient admitted after an overdose. The patient allegedly took a Seroquel and Celexa. They're unable to ascertain what time. There were multiple tablets that were taken. The patient ambulated to the [facility]. Please decreasing mentation on the way into the hospital. An EKG didn't had sinus tachycardia. The patient states he took the pills 2 hours ago and wanted to kill himself. NC O2 On antibiotics per ID Much improved, for extubation Seizure previously - Neurology following, CT negative/EEG pending Tolerating diet Allergies: No Known Allergies (Unverified , 11/14/18) Past Medical History: none noted Physical Exam Vital Signs Noted General Appearance: non-toxic, sedated, eyes closed localizes pain vocalizes Head: normocephalic, atraumatic Eyes: bilateral eye PERRL, bilateral eye Scleral Injection ENT: moist mucus membranes Neck: supple Respiratory: chest non-tender, lungs clear, normal breath sounds Cardiovascular #1: tachycardia, HS1, HS2 RRR Abdomen: SNTND Extremities: No edema, no rashes [employer]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, 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, no seizures, no focal sign, purposeful to pain Impression: Drug overdose Respiratory failure Seizure UTI (urinary tract infection) EKG: No ischemia, ST Plan Adjust O2 Advance diet PT Monitor labs/ABG NPO Aspiration precautions Cardiac Monitoring AB per ID Psychiatry following Laboratory Tests Test 11/14/18 16:40 11/14/18 18:48 Urine Color Viviana Urine Appearance Clear Urine pH 6.5 (4.5-8.0) Urine Specific [place] 1.015 (1.005-1.035) Urine Protein 1+ (NEGATIVE) H Urine Glucose (UA) Negative (NEGATIVE) Urine Ketones Negative (NEGATIVE) Urine Blood 1+ (NEGATIVE) H Urine Nitrite Negative (NEGATIVE) Urine Bilirubin Negative (NEGATIVE) Urine Ictotest Negative (NEGATIVE) Urine Urobilinogen Normal MG/DL (0.0-1.0) Urine Leukocyte Esterase 1+ (NEGATIVE) H Urine RBC 0-2 /HPF (0 - 0) H Urine WBC 10-15 /HPF (0 - 0) H Urine Squamous Epithelial Cells Occasional /LPF Urine Amorphous Sediment Moderate /LPF (NONE) H Urine Bacteria Few /HPF (NONE) Arterial Blood pH 7.298 (7.350-7.450) Arterial Blood Partial Pressure CO2 52.3 mmHg (35.0-45.0) H Arterial Blood Partial Pressure O2 62.5 mmHg (75.0-100.0) L Arterial Blood HCO3 25.0 mmol/L (22.0-26.0) Arterial Blood Oxygen Saturation 89.7 % (95-100) *L Arterial Blood Base Excess -2.1 (-2-2) L Derek Test Positive Sodium Level 137 MMOL/L (136-145) Potassium Level 3.4 MMOL/L (3.5-5.1) L Chloride Level 99 MMOL/L (98-107) Carbon Dioxide Level 27 MMOL/L (21-32) Anion Gap 11 mmol/L (5-15) Blood Urea Nitrogen 17 mg/dL (7-18) Creatinine 1.0 MG/DL (0.55-1.30) Estimate Glomerular Filtration Rate > 60 mL/min (>60) Glucose Level 152 MG/DL (74-106) H Calcium Level 9.2 MG/DL (8.5-10.1) Total Bilirubin 0.4 MG/DL (0.2-1.0) Aspartate Amino Transferase (AST) 22 U/L (15-37) Alanine Aminotransferase (ALT) 46 U/L (12-78) Alkaline Phosphatase 99 U/L (46-116) Total Creatine Kinase 53 U/L (26-308) Troponin I 0.000 ng/mL (0.000-0.056) Total Protein 8.8 G/DL (6.4-8.2) H Albumin 4.0 G/DL (3.4-5.0) Globulin 4.8 g/dL Albumin/Globulin Ratio 0.8 (1.0-2.7) L Salicylates Level 1.7 ug/mL (2.8-20) L Urine Opiates Screen Negative (NEGATIVE) Acetaminophen Level < 2 MCG/ML (10-30) L Urine Barbiturates Screen Negative (NEGATIVE) Phencyclidine (PCP) Screen Negative (NEGATIVE) Urine Amphetamines Screen Negative (NEGATIVE) Urine Benzodiazepines Screen Negative (NEGATIVE) Urine Cocaine Screen Negative (NEGATIVE) Urine Marijuana (THC) Screen Negative (NEGATIVE) Serum Alcohol < 3 mg/dL White Blood Count 9.8 K/UL (4.8-10.8) Red Blood Count 5.33 M/UL (4.70-6.10) Hemoglobin 10.5 G/DL (14.2-18.0) L Hematocrit 34.8 % (42.0-52.0) L Mean Corpuscular Volume 65 FL (80-99) L Mean Corpuscular Hemoglobin 19.6 PG (27.0-31.0) L Mean Corpuscular Hemoglobin Concent 30.0 G/DL (32.0-36.0) L Red Cell Distribution Width 15.1 % (11.6-14.8) H Platelet Count 150 K/UL (150-450) Mean Platelet Volume 8.1 FL (6.5-10.1) Neutrophils (%) (Auto) 81.1 % (45.0-75.0) H Lymphocytes (%) (Auto) 11.4 % (20.0-45.0) L Monocytes (%) (Auto) 6.4 % (1.0-10.0) Eosinophils (%) (Auto) 0.5 % (0.0-3.0) Basophils (%) (Auto) 0.7 % (0.0-2.0) Rhythm Strip Diag. Results EP Interpretation: yes Rhythm: no PVC's, no ectopy, other - ST Chest X-Ray Diagnostic Results Chest X-Ray Diagnostic Results : Chest X-Ray Ordered: Yes # of Views/Limited/Complete: 1 View Indication: Other EP Interpretation: Yes Interpretation: no consolidation, no effusion, no pneumothorax, other - poor inspiration Critical Care - Objective Last 24 Hour Vital Signs Date Time Temp Pulse Resp B/P (MAP) Pulse Ox O2 Delivery O2 Flow Rate FiO2 11/20/18 00:00 Room Air 11/20/18 00:00 98.5 94 18 129/91 (104) 95 11/19/18 21:30 98.2 85 18 140/85 (103) 95 11/19/18 21:00 74 16 123/90 (101) 98 11/19/18 20:00 98.6 77 20 123/90 (101) 96 11/19/18 20:00 Room Air 11/19/18 20:00 76 11/19/18 19:55 Room Air 21 11/19/18 19:55 97 Room Air 21 11/19/18 19:00 79 19 139/80 (99) 98 11/19/18 18:00 94 19 126/75 (92) 98 11/19/18 17:00 79 19 111/76 (88) 95 11/19/18 16:00 Room Air Room Air 11/19/18 16:00 99.0 95 17 113/91 (98) 95 11/19/18 16:00 92 11/19/18 15:00 74 16 132/85 (101) 95 11/19/18 14:00 82 16 126/67 (86) 95 11/19/18 13:00 84 16 126/67 (86) 98 11/19/18 12:00 Room Air Room Air 11/19/18 12:00 77 11/19/18 12:00 99.0 77 13 131/78 (95) 100 11/19/18 11:00 79 19 94/49 (64) 93 11/19/18 10:00 87 20 119/83 (95) 94 11/19/18 09:00 89 20 135/77 (96) 95 11/19/18 08:00 Room Air Room Air 11/19/18 08:00 75 11/19/18 08:00 76 17 95 11/19/18 07:53 74 16 96 Room Air 21 11/19/18 07:44 97 Room Air 75 11/19/18 07:44 Room Air 21 11/19/18 07:00 99.6 82 20 122/77 (92) 94 11/19/18 06:00 79 21 123/67 (85) 93 11/19/18 05:00 79 21 142/81 (101) 93 11/19/18 04:00 Room Air Room Air 11/19/18 04:00 90 11/19/18 04:00 99.0 81 19 142/81 (101) 94 11/19/18 03:19 Nasal Cannula 11/19/18 03:19 Nasal Cannula 11/19/18 03:00 79 21 142/81 (101) 94 Micro: Microbiology Date/Time Source Procedure Growth Status 11/17/18 08:55 Blood Blood Culture - Preliminary NO GROWTH AFTER 24 HOURS Resulted 11/17/18 08:40 Blood Blood Culture - Preliminary NO GROWTH AFTER 24 HOURS Resulted 11/17/18 08:20 Sputum Induced Gram Stain - Final Complete 11/17/18 08:20 Sputum Induced Sputum Culture - Final NORMAL UPPER RESPIRATORY MONISHA PRESENT Complete 11/17/18 09:15 Indwelling Cath Urine Culture - Preliminary NO GROWTH AFTER 24 HOURS Resulted Critical Care - Subjective ROS Limited/Unobtainable: No Condition: stable EKG Rhythm: Sinus Rhythm FI02: 21 Vent Support Breath Rate: 22 Vent Support Mode: CPAP Vent Tidal Volume: 500 Sputum Amount: None PEEP: 5.0 PIP: 41 Tube Feeding Amount: 40 I&O: Intake and Output 11/19/18 11/20/18 18:59 06:59 Intake Total 705.000 ml Output Total 600 ml Balance 105.000 ml Intake Oral 230 ml IV Total 475.000 ml Output Urine Total 600 ml # Voids 5 # Bowel Movements 2 ET-Tube: 7.5 ET Position: 22 Kwame Gandara MD Nov 20, 2018 02:25
[2018-11-20 07:18] LABS: BASOPHILS % (AUTO) 0.4 % (0.0-2.0); EOSINOPHILS % (AUTO) 3.5 % (0.0-3.0); HEMATOCRIT 43.7 % (42.0-52.0); HEMOGLOBIN 13.1 G/DL (14.2-18.0); LYMPHOCYTES % (AUTO) 26.3 % (20.0-45.0); MEAN CORPUSCULAR VOLUME 66 FL (80-99); MONOCYTES % (AUTO) 11.3 % (1.0-10.0); NEUTROPHILS % (AUTO) 58.6 % (45.0-75.0); PLATELET COUNT 209 K/UL (150-450); RED BLOOD COUNT 6.62 M/UL (4.70-6.10); RED CELL DISTRIBUTION WIDTH 14.7 % (11.6-14.8); WHITE BLOOD COUNT 7.2 K/UL (4.8-10.8)
[2018-11-20 07:39] LABS: ANION GAP 9 mmol/L (5-15); BLOOD UREA NITROGEN 11 mg/dL (7-18); CALCIUM 9.3 MG/DL (8.5-10.1); CARBON DIOXIDE 27 MMOL/L (21-32); CHLORIDE 101 MMOL/L (98-107); POTASSIUM 3.8 MMOL/L (3.5-5.1); SODIUM 137 MMOL/L (136-145)
[2018-11-20] MEDS: Magnesium Oxide 400mg tab ORAL SCH ×3 (09:12→17:25)
[2018-11-20] MEDS: Citalopram Hydrobromide 10mg Tab ORAL SCH (09:13)
[2018-11-20] MEDS: Heparin 5000 units/ml inj SUBQ SCH ×2 (09:15→22:31)
--- NOTE | 2018-11-20 10:05 | Diagnostic Imaging Report ---
EXAM: XR Chest, 1 View CLINICAL HISTORY: INFECT TECHNIQUE: Frontal view of the chest. COMPARISON: Chest x-ray dated 11/18/18 FINDINGS: Lungs: Linear atelectasis in the right lung base. Otherwise no new focal pulmonary opacities. Pleural space: Unremarkable. The costophrenic angles are sharp. No visible pneumothorax. Heart: Unremarkable. No cardiomegaly. Mediastinum: Unremarkable. Bones/joints: Unremarkable. Upper abdomen: Persistent mild elevation of the right hemidiaphragm, not significantly changed. IMPRESSION: 1. Linear atelectasis in the right lung base,. 2. Persistent mild elevation of the right hemidiaphragm, not significantly changed.
--- NOTE | 2018-11-20 13:17 | Neurology Progress Note ---
Interim History Interim History Interim History Mr. Grace continues to feel much better. He was transferred out of the ICU yesterday. He is breathing well. His voice is normal. He still has a mild scratch in his throat. His mood is better. He is less anxious. The mind is clear. He is able to communicate well. His strength is excellent. His headache is about the same. He has been walking well. He denies any neurologic symptoms. Review of Systems Neuro Review of Systems Benign. Objective Physical Exam Last Vital Signs Date Time Temp Pulse Resp B/P (MAP) Pulse Ox O2 Delivery O2 Flow Rate FiO2 11/20/18 12:08 98.7 64 18 150/85 (106) 100 11/20/18 06:40 Room Air 21 11/18/18 23:48 2.0 Laboratory Tests Test 11/20/18 05:28 White Blood Count 7.2 K/UL (4.8-10.8) Red Blood Count 6.62 M/UL (4.70-6.10) H Hemoglobin 13.1 G/DL (14.2-18.0) L Hematocrit 43.7 % (42.0-52.0) Mean Corpuscular Volume 66 FL (80-99) L Mean Corpuscular Hemoglobin 19.9 PG (27.0-31.0) L Mean Corpuscular Hemoglobin Concent 30.0 G/DL (32.0-36.0) L Red Cell Distribution Width 14.7 % (11.6-14.8) Platelet Count 209 K/UL (150-450) Mean Platelet Volume 6.6 FL (6.5-10.1) Neutrophils (%) (Auto) 58.6 % (45.0-75.0) Lymphocytes (%) (Auto) 26.3 % (20.0-45.0) Monocytes (%) (Auto) 11.3 % (1.0-10.0) H Eosinophils (%) (Auto) 3.5 % (0.0-3.0) H Basophils (%) (Auto) 0.4 % (0.0-2.0) Sodium Level 137 MMOL/L (136-145) Potassium Level 3.8 MMOL/L (3.5-5.1) Chloride Level 101 MMOL/L (98-107) Carbon Dioxide Level 27 MMOL/L (21-32) Anion Gap 9 mmol/L (5-15) Blood Urea Nitrogen 11 mg/dL (7-18) Creatinine 1.0 MG/DL (0.55-1.30) Estimat Glomerular Filtration Rate > 60 mL/min (>60) Glucose Level 97 MG/DL (74-106) Calcium Level 9.3 MG/DL (8.5-10.1) Neurologic Exam Objective PHYSICAL EXAMINATION: GENERAL: He is a well-developed, well-nourished, slightly obese, gentleman, lying in bed in no acute distress. HEAD: Head is normocephalic and atraumatic. EENT: Examination benign. NECK: No neck rigidity was observed. NEUROLOGICAL EXAMINATION: MENTAL STATUS EXAMINATION: He was awake and alert. He was oriented to self, [facility] and November 20, 2018. He was able to recall 3/3 words immediately and could remember them in 1 and 3 minutes. He was able to remember presidents Trump through Denny Sr. His mathematical skills were good. His visuospatial function was preserved. SPEECH: His voice was normal. LANGUAGE: He had no aphasia. CRANIAL NERVE EXAMINATION: II: The visual sims were intact on confrontation. III, IV & : The external ocular movements were full and the pupils were 3 mm in diameter, equal, round, regular, and reactive to light. V: He had normal facial sensations and the temporales, masseters and pterygoids functioned normally. VII: He had normal facial expressions and no facial asymmetry. VIII: He was able to hear well and had no nystagmus. IX: The palate moved symmetrically on phonation. X: The voice was hoarse. XI: The sternocleidomastoids and trapezii did function. XII: The tongue was in the midline without fasciculations or atrophy. MOTOR SYSTEM: The tone was normal in all four extremities. Examination of muscle mass revealed no focal wasting. Examination of power revealed G 5/5 power. SENSORY EXAMINATION: He had intact sensations to light touch and graphesthesia. REFLEXES: 2+ and bilaterally symmetrical at the biceps, triceps, brachioradialis, and knees. 1+ at both ankles. The plantar responses were flexor bilaterally. COORDINATION: He performed well on finger to nose testing. STANCE & GAIT: Were normal. Impression/Recommendations Diagnostic Impression 1. Mr. Nabil Grace is a 48-year-old, gentleman, of unknown handedness, who does have a past history of bipolar affective disorder, who was hospitalized on 11/14/2018 after he overdosed on an unknown quantity of Seroquel and Celexa. He was brought into the [facility] emergency room and was placed on BiPAP. Of note is that a stomach lavage was not performed. He was then transferred to the ICU and was on BiPAP in the ICU until it was discontinued at approximately 1130 hours. At approximately 1415 hours, he was noted to have an episode of generalized clonic movements, lasting approximately 10 seconds associated with severe oxygen desaturation and worsening of his mental state. He was bagged immediately and soon afterwards he was intubated and artificially ventilated. He was then sedated with propofol and fentanyl. 2. He feels much better. He was transferred out of the ICU yesterday. He is breathing well. His voice is normal. He still has a mild scratch in his throat. His mood is better. He is less anxious. The mind is clear. He is able to communicate well. His strength is excellent. His headache is about the same. He has been walking well. He denies any neurologic symptoms. 3. He has had a daily headache for the last 40 years, which he localizes inside his head. It is a pressure-like sensation. The headache gets better when he is less anxious and depressed and gets worse when he more anxious and depressed. Over the years he has been given various different drugs and none of them have worked. 4. On neurological examination, at this time, he is awake and alert. He is fully oriented. His memory is normal. His mathematical skills are good. His visuospatial function is preserved. His voice has normalized. He had no aphasia. His cranial nerve function, motor function, and sensory function are normal. His reflexes are normal and symmetrical. 5. His latest laboratory data on my initial evaluation revealed that he was anemic with a hemoglobin of 13.1. His arterial blood gas following the event revealed a pH of 7.29, a pCO2 of 48, a pO2 of 76, and a bicarbonate of 22.5. His chemistry panel revealed a BUN elevated at 19 and low calcium at 8.3. His urinalysis revealed 1+ leukocyte esterase, 0-2 RBCs, and 10-15 WBCs per high- power field. His urine toxicology screen was negative. 6. The Brain CT done on 11/16/18 was normal. 7. His EEG done on 11/16/18 revealed a mild encephalopathy. 8. It is still unclear if the episode of abnormal clonic movements was due to a hypoxic event or a true seizure. 9. His encephalopathy has reverse. 10. He has had headache for the last 40 years. It is difficult to classify the headache. He has been started on Elavil for it and is tolerating it well. Recommendations 1. Continue present management. 2. Aggressive treatment of depression as per Dr Chiang. 3. Elavil 25 mg q HS for headache. 4. Increase activity as tolerated. Lázaro Hale M.D., M.S.P.H. Lázaro Hale MD Nov 20, 2018 13:17
[2018-11-20] MEDS: cefTRIAXone 1 GM in D5W 50 ML IVPB SCH (14:06)
--- NOTE | 2018-11-20 14:13 | Nephrology Progress Note ---
Assessment/Plan Problem List: (1) Respiratory failure Assessment: now extubated (2) UTI (urinary tract infection) (3) Drug overdose (4) Acute renal failure Assessment: Cr now wnl (5) High triglycerides Assessment: on Gemfibrozil Assessment Drug overdose Respiratory failure NOW EXTUBATED UTI (urinary tract infection) EKG: No ischemia, ST h/o Psych disease mild anemia high Trigs Cr up to 1.4 back to 1.2 Plan murray voiding well. Hydrate- po Aim to correct lytes, K and mag as needed Monitor renal parameters Avoid nephrotoxics venofer one dose given gemfibrozil per psych IN VIEW OF BEING STABLE FROM RENAL STAND AND FLUID MANAGEMENT , I SIGN OFF Please reconsult if needed Subjective ROS Limited/Unobtainable: No Constitutional: Reports: malaise Objective Objective Last 24 Hour Vital Signs Date Time Temp Pulse Resp B/P (MAP) Pulse Ox O2 Delivery O2 Flow Rate FiO2 11/20/18 12:08 98.7 64 18 150/85 (106) 100 11/20/18 12:00 98.6 96 16 123/85 (98) 94 11/20/18 08:00 97.8 70 18 132/66 (88) 97 11/20/18 06:40 98 Room Air 21 11/20/18 06:40 Room Air 21 11/20/18 04:00 98.4 95 18 125/88 (100) 95 11/20/18 00:00 Room Air 11/20/18 00:00 98.5 94 18 129/91 (104) 95 11/19/18 22:00 Room Air 11/19/18 21:30 98.2 85 18 140/85 (103) 95 11/19/18 21:00 74 16 123/90 (101) 98 11/19/18 20:00 98.6 77 20 123/90 (101) 96 11/19/18 20:00 Room Air 11/19/18 20:00 76 11/19/18 19:55 Room Air 21 11/19/18 19:55 97 Room Air 21 11/19/18 19:00 79 19 139/80 (99) 98 11/19/18 18:00 94 19 126/75 (92) 98 11/19/18 17:00 79 19 111/76 (88) 95 11/19/18 16:00 Room Air Room Air 11/19/18 16:00 99.0 95 17 113/91 (98) 95 11/19/18 16:00 92 11/19/18 15:00 74 16 132/85 (101) 95 Intake and Output 11/19/18 11/20/18 19:00 07:00 Intake Total 705.000 ml Output Total 300 ml Balance 405.000 ml Intake Oral 230 ml IV Total 475.000 ml Output Urine Total 300 ml # Voids 4 4 # Bowel Movements 2 2 Laboratory Tests 11/20/18 05:28: White Blood Count 7.2, Red Blood Count 6.62H, Hemoglobin 13.1L, Hematocrit 43.7 , Mean Corpuscular Volume 66L, Mean Corpuscular Hemoglobin 19.9L, Mean Corpuscular Hemoglobin Concent 30.0L, Red Cell Distribution Width 14.7, Platelet Count 209, Mean Platelet Volume 6.6, Neutrophils (%) (Auto) 58.6, Lymphocytes (%) (Auto) 26.3, Monocytes (%) (Auto) 11.3H, Eosinophils (%) (Auto) 3.5H, Basophils (%) (Auto) 0.4, Sodium Level 137, Potassium Level 3.8, Chloride Level 101, Carbon Dioxide Level 27, Anion Gap 9, Blood Urea Nitrogen 11, Creatinine 1.0, Estimat Glomerular Filtration Rate > 60, Glucose Level 97, Calcium Level 9.3 Height (Feet): 5 Height (Inches): 6.00 Weight (Pounds): 212 General Appearance: no apparent distress Cardiovascular: normal rate Respiratory/Chest: lungs clear Abdomen: soft Objective no change Mark Llanes MD Nov 20, 2018 14:13
--- NOTE | 2018-11-20 14:33 | General Progress Note ---
Assessment/Plan Problem List: (1) Drug overdose ICD Codes: T50.901A - Poisoning by unspecified drugs, medicaments and biological substances, accidental (unintentional), initial encounter SNOMED: 72359706 Qualifiers: Qualified Codes: T50.902A - Poisoning by unspecified drugs, medicaments and biological substances, intentional self-harm, initial encounter (2) Suicide gesture ICD Codes: X83.8XXA - Intentional self-harm by other specified means, initial encounter SNOMED: 04938326 Qualifiers: Qualified Codes: X83.8XXA - Intentional self-harm by other specified means, initial encounter (3) Respiratory failure ICD Codes: J96.90 - Respiratory failure, unspecified, unspecified whether with hypoxia or hypercapnia SNOMED: 843457941 Qualifiers: Qualified Codes: J96.01 - Acute respiratory failure with hypoxia; J96.02 - Acute respiratory failure with hypercapnia (4) UTI (urinary tract infection) ICD Codes: N39.0 - Urinary tract infection, site not specified SNOMED: 23425185 Qualifiers: Qualified Codes: N39.0 - Urinary tract infection, site not specified (5) encephalopathy due to toxin (6) Seizure ICD Codes: R56.9 - Unspecified convulsions SNOMED: 80844054 (7) Bipolar disorder ICD Codes: F31.9 - Bipolar disorder, unspecified SNOMED: 52791711 Qualifiers: (8) Acute renal failure ICD Codes: N17.9 - Acute kidney failure, unspecified SNOMED: 33915538 (9) High triglycerides ICD Codes: E78.1 - Pure hyperglyceridemia SNOMED: 273211982 (10) Rash and nonspecific skin eruption ICD Codes: R21 - Rash and other nonspecific skin eruption SNOMED: 629871369, 719612361 Assessment/Plan F/U psych recs: Celexa 20 mg PO qDaily + Seroquel 100 mg OP qHS PRN Ativan Per neuro Elavil 25 mg PO qHS for SOTELO Monitor MS and mood Abx (CTx/Flagyl) per ID, can likely taper next 1-2 days Encourage OOB PPI, HEP SQ Dispo planning to psych unit Subjective Allergies: Coded Allergies: LURASIDONE (Verified Allergy, Severe, 11/19/18) pt states he has severe reaction Subjective AFVSS, stable on RA, TTF Doing better Mood improved, no SI/HI/AVH Brayan PO, voiding, no F/C/CP/SOB Objective Last 24 Hour Vital Signs Date Time Temp Pulse Resp B/P (MAP) Pulse Ox O2 Delivery O2 Flow Rate FiO2 11/20/18 12:08 98.7 64 18 150/85 (106) 100 11/20/18 12:00 98.6 96 16 123/85 (98) 94 11/20/18 08:00 97.8 70 18 132/66 (88) 97 11/20/18 06:40 98 Room Air 21 11/20/18 06:40 Room Air 21 11/20/18 04:00 98.4 95 18 125/88 (100) 95 11/20/18 00:00 Room Air 11/20/18 00:00 98.5 94 18 129/91 (104) 95 11/19/18 22:00 Room Air 11/19/18 21:30 98.2 85 18 140/85 (103) 95 11/19/18 21:00 74 16 123/90 (101) 98 11/19/18 20:00 98.6 77 20 123/90 (101) 96 11/19/18 20:00 Room Air 11/19/18 20:00 76 11/19/18 19:55 Room Air 21 11/19/18 19:55 97 Room Air 21 11/19/18 19:00 79 19 139/80 (99) 98 11/19/18 18:00 94 19 126/75 (92) 98 11/19/18 17:00 79 19 111/76 (88) 95 11/19/18 16:00 Room Air Room Air 11/19/18 16:00 99.0 95 17 113/91 (98) 95 11/19/18 16:00 92 11/19/18 15:00 74 16 132/85 (101) 95 Intake and Output 11/19/18 11/20/18 19:00 07:00 Intake Total 705.000 ml Output Total 300 ml Balance 405.000 ml Intake Oral 230 ml IV Total 475.000 ml Output Urine Total 300 ml # Voids 4 4 # Bowel Movements 2 2 Laboratory Tests 11/20/18 05:28: White Blood Count 7.2, Red Blood Count 6.62H, Hemoglobin 13.1L, Hematocrit 43.7 , Mean Corpuscular Volume 66L, Mean Corpuscular Hemoglobin 19.9L, Mean Corpuscular Hemoglobin Concent 30.0L, Red Cell Distribution Width 14.7, Platelet Count 209, Mean Platelet Volume 6.6, Neutrophils (%) (Auto) 58.6, Lymphocytes (%) (Auto) 26.3, Monocytes (%) (Auto) 11.3H, Eosinophils (%) (Auto) 3.5H, Basophils (%) (Auto) 0.4, Sodium Level 137, Potassium Level 3.8, Chloride Level 101, Carbon Dioxide Level 27, Anion Gap 9, Blood Urea Nitrogen 11, Creatinine 1.0, Estimat Glomerular Filtration Rate > 60, Glucose Level 97, Calcium Level 9.3 Height (Feet): 5 Height (Inches): 6.00 Weight (Pounds): 212 General Appearance: no apparent distress, other EENT: PERRL/EOMI Neck: non-tender, normal alignment, supple Cardiovascular: normal peripheral pulses, normal rate, regular rhythm Respiratory/Chest: chest wall non-tender, lungs clear, normal breath sounds, no respiratory distress Abdomen: normal bowel sounds, non tender, soft, no organomegaly, no mass Edema: no edema noted Arm (L), no edema noted Arm (R), no edema noted Leg (L), no edema noted Leg (R), no edema noted Pedal (L), no edema noted Pedal (R), no edema noted Generalized Frantz Leary MD Nov 20, 2018 14:33
--- NOTE | 2018-11-20 21:38 | General Progress Note ---
Assessment/Plan Problem List: (1) Bipolar disorder ICD Codes: F31.9 - Bipolar disorder, unspecified SNOMED: 29814944 Qualifiers: (2) encephalopathy due to toxin Status: stable Assessment/Plan celexa 20mg qhs seroquel 200mg qhs the pt is at imminent dts/sto the pt was provide st transfer to psychiatric unit Subjective Neurologic/Psychiatric: Reports: anxiety, depressed Allergies: Coded Allergies: LURASIDONE (Verified Allergy, Severe, 11/19/18) pt states he has severe reaction Subjective The pt is more anxious and suicidal thoughts. The pt stated that he feels lonely and hopeless. The pt stated that he recently lost his dogs and house. the pt stated that he couldn't go back to the previous facility. the pt is hopeless and lonely. the pt stated that if he goes to [facility] he will kill self Objective Last 24 Hour Vital Signs Date Time Temp Pulse Resp B/P (MAP) Pulse Ox O2 Delivery O2 Flow Rate FiO2 11/20/18 20:00 97.8 87 19 128/90 (103) 96 11/20/18 18:52 98 Room Air 21 11/20/18 18:52 Room Air 21 11/20/18 16:00 98.1 101 18 128/81 (97) 98 11/20/18 12:08 98.7 64 18 150/85 (106) 100 11/20/18 12:00 98.6 96 16 123/85 (98) 94 11/20/18 08:00 97.8 70 18 132/66 (88) 97 11/20/18 06:40 98 Room Air 21 11/20/18 06:40 Room Air 21 11/20/18 04:00 98.4 95 18 125/88 (100) 95 11/20/18 00:00 Room Air 11/20/18 00:00 98.5 94 18 129/91 (104) 95 11/19/18 22:00 Room Air Intake and Output 11/19/18 11/20/18 19:00 07:00 Intake Total 705.000 ml Output Total 300 ml Balance 405.000 ml Intake Oral 230 ml IV Total 475.000 ml Output Urine Total 300 ml # Voids 4 4 # Bowel Movements 2 2 Laboratory Tests 11/20/18 05:28: White Blood Count 7.2, Red Blood Count 6.62H, Hemoglobin 13.1L, Hematocrit 43.7 , Mean Corpuscular Volume 66L, Mean Corpuscular Hemoglobin 19.9L, Mean Corpuscular Hemoglobin Concent 30.0L, Red Cell Distribution Width 14.7, Platelet Count 209, Mean Platelet Volume 6.6, Neutrophils (%) (Auto) 58.6, Lymphocytes (%) (Auto) 26.3, Monocytes (%) (Auto) 11.3H, Eosinophils (%) (Auto) 3.5H, Basophils (%) (Auto) 0.4, Sodium Level 137, Potassium Level 3.8, Chloride Level 101, Carbon Dioxide Level 27, Anion Gap 9, Blood Urea Nitrogen 11, Creatinine 1.0, Estimat Glomerular Filtration Rate > 60, Glucose Level 97, Calcium Level 9.3 Height (Feet): 5 Height (Inches): 6.00 Weight (Pounds): 212 General Appearance: no apparent distress, alert, overweight Neurologic: oriented x 3, responsive, depressed affect Nery Chiang MD Nov 20, 2018 21:38
[2018-11-20] MEDS: QUEtiapine 200mg tab ORAL SCH (22:30)
[2018-11-21] VITALS: BP 112/70
[2018-11-21 04:00] VITALS: BP 111/76
[2018-11-21 07:54] VITALS: BP 119/76
[2018-11-21] MEDS: Magnesium Oxide 400mg tab ORAL SCH ×3 (08:16→17:17)
[2018-11-21] MEDS: Citalopram Hydrobromide 10mg Tab ORAL SCH (08:16)
[2018-11-21] MEDS: Heparin 5000 units/ml inj SUBQ SCH ×2 (08:17→21:36)
[2018-11-21 11:59] VITALS: BP 94/65
--- NOTE | 2018-11-21 13:05 | Neurology Progress Note ---
Interim History Interim History Interim History Mr. Grace feels very well. His appetite is better and he is eating well. He was able to sleep well last night. He is breathing well. His voice is normal. The scratch in his throat has resolved. His mood is better. He is less anxious. The mind is clear. He is able to communicate well. His strength is excellent. His headache is about the same. He has been walking well. He denies any neurologic symptoms. Review of Systems Neuro Review of Systems Benign. Objective Physical Exam Last Vital Signs Date Time Temp Pulse Resp B/P (MAP) Pulse Ox O2 Delivery O2 Flow Rate FiO2 11/21/18 11:59 97.9 95 20 94/65 (75) 95 11/21/18 09:00 Room Air 11/21/18 08:02 21 11/18/18 23:48 2.0 Neurologic Exam Objective PHYSICAL EXAMINATION: GENERAL: He is a well-developed, well-nourished, slightly obese, gentleman, lying in bed in no acute distress. HEAD: Head is normocephalic and atraumatic. EENT: Examination benign. NECK: No neck rigidity was observed. NEUROLOGICAL EXAMINATION: MENTAL STATUS EXAMINATION: He was awake and alert. He was oriented to self, [facility] November 21, [place]. He was able to recall 3/3 words immediately and could remember them in 1 and 3 minutes. He was able to remember presidents Trump through Denny Sr. His mathematical skills were good. His visuospatial function was preserved. SPEECH: His voice was normal. LANGUAGE: He had no aphasia. CRANIAL NERVE EXAMINATION: II: The visual sims were intact on confrontation. III, IV & : The external ocular movements were full and the pupils were 3 mm in diameter, equal, round, regular, and reactive to light. V: He had normal facial sensations and the temporales, masseters and pterygoids functioned normally. VII: He had normal facial expressions and no facial asymmetry. VIII: He was able to hear well and had no nystagmus. IX: The palate moved symmetrically on phonation. X: The voice was hoarse. XI: The sternocleidomastoids and trapezii did function. XII: The tongue was in the midline without fasciculations or atrophy. MOTOR SYSTEM: The tone was normal in all four extremities. Examination of muscle mass revealed no focal wasting. Examination of power revealed G 5/5 power. SENSORY EXAMINATION: He had intact sensations to light touch and graphesthesia. REFLEXES: 2+ and bilaterally symmetrical at the biceps, triceps, brachioradialis, and knees. 1+ at both ankles. The plantar responses were flexor bilaterally. COORDINATION: He performed well on finger to nose testing. STANCE & GAIT: Were normal. Impression/Recommendations Diagnostic Impression 1. Mr. Nabil Grace is a 48-year-old, gentleman, of unknown handedness, who does have a past history of bipolar affective disorder, who was hospitalized on 11/14/2018 after he overdosed on an unknown quantity of Seroquel and Celexa. He was brought into the [facility] emergency room and was placed on BiPAP. Of note is that a stomach lavage was not performed. He was then transferred to the ICU and was on BiPAP in the ICU until it was discontinued at approximately 1130 hours. At approximately 1415 hours, he was noted to have an episode of generalized clonic movements, lasting approximately 10 seconds associated with severe oxygen desaturation and worsening of his mental state. He was bagged immediately and soon afterwards he was intubated and artificially ventilated. He was then sedated with propofol and fentanyl. 2. He feels very well. His appetite is better and he is eating well. He was able to sleep well last night. He is breathing well. His voice is normal. The scratch in his throat has resolved. His mood is better. He is less anxious. The mind is clear. He is able to communicate well. His strength is excellent. His headache is about the same. He has been walking well. He denies any neurologic symptoms. 3. He has had a daily headache for the last 40 years, which he localizes inside his head. It is a pressure-like sensation. The headache gets better when he is less anxious and depressed and gets worse when he more anxious and depressed. Over the years he has been given various different drugs and none of them have worked. The headache continues. 4. On neurological examination, at this time, he is awake and alert. He is fully oriented. His memory is normal. His mathematical skills are good. His visuospatial function is preserved. His voice has normalized. He had no aphasia. His cranial nerve function, motor function, and sensory function are normal. His reflexes are normal and symmetrical. 5. His latest laboratory data on my initial evaluation revealed that he was anemic with a hemoglobin of 13.1. His arterial blood gas following the event revealed a pH of 7.29, a pCO2 of 48, a pO2 of 76, and a bicarbonate of 22.5. His chemistry panel revealed a BUN elevated at 19 and low calcium at 8.3. His urinalysis revealed 1+ leukocyte esterase, 0-2 RBCs, and 10-15 WBCs per high- power field. His urine toxicology screen was negative. 6. The Brain CT done on 11/16/18 was normal. 7. His EEG done on 11/16/18 revealed a mild encephalopathy. 8. It is still unclear if the episode of abnormal clonic movements was due to a hypoxic event or a true seizure. 9. His encephalopathy has reversed completely. 10. He has had headache for the last 40 years. It is difficult to classify the headache. He has been started on Elavil for it and is tolerating it well. Recommendations 1. Continue present management. 2. Aggressive treatment of depression as per Dr Chiang. 3. Elavil 25 mg q HS for headache. 4. Increase activity as tolerated. 5. Will stop following as he is neurologically stable. 6. Follow-up in office in 6-8 weeks. Please call if any neurologic questions or concerns arise. Lázaro Hale M.D., M.S.P.H. Lázaro Hale MD Nov 21, 2018 13:04
[2018-11-21] MEDS: cefTRIAXone 1 GM in D5W 50 ML IVPB SCH (13:56)
--- NOTE | 2018-11-21 14:38 | General Progress Note ---
Assessment/Plan Problem List: (1) Drug overdose ICD Codes: T50.901A - Poisoning by unspecified drugs, medicaments and biological substances, accidental (unintentional), initial encounter SNOMED: 17316709 Qualifiers: Qualified Codes: T50.902A - Poisoning by unspecified drugs, medicaments and biological substances, intentional self-harm, initial encounter (2) Suicide gesture ICD Codes: X83.8XXA - Intentional self-harm by other specified means, initial encounter SNOMED: 80280657 Qualifiers: Qualified Codes: X83.8XXA - Intentional self-harm by other specified means, initial encounter (3) Respiratory failure ICD Codes: J96.90 - Respiratory failure, unspecified, unspecified whether with hypoxia or hypercapnia SNOMED: 920258610 Qualifiers: Qualified Codes: J96.01 - Acute respiratory failure with hypoxia; J96.02 - Acute respiratory failure with hypercapnia (4) UTI (urinary tract infection) ICD Codes: N39.0 - Urinary tract infection, site not specified SNOMED: 21182344 Qualifiers: Qualified Codes: N39.0 - Urinary tract infection, site not specified (5) encephalopathy due to toxin (6) Seizure ICD Codes: R56.9 - Unspecified convulsions SNOMED: 05787593 (7) Bipolar disorder ICD Codes: F31.9 - Bipolar disorder, unspecified SNOMED: 63314763 Qualifiers: (8) Acute renal failure ICD Codes: N17.9 - Acute kidney failure, unspecified SNOMED: 45607314 (9) High triglycerides ICD Codes: E78.1 - Pure hyperglyceridemia SNOMED: 164571294 (10) Rash and nonspecific skin eruption ICD Codes: R21 - Rash and other nonspecific skin eruption SNOMED: 399998521, 627581531 Assessment/Plan F/U psych recs: Celexa 20 mg PO qDaily + Seroquel 100 mg OP qHS PRN Ativan Per neuro Elavil 25 mg PO qHS for SOTELO Monitor MS and mood Abx (CTx/Flagyl) per ID, can likely taper next 1-2 days Encourage OOB PPI, HEP SQ Dispo planning to psych unit? will discuss plan with Dr. Dangelo Subjective Allergies: Coded Allergies: LURASIDONE (Verified Allergy, Severe, 11/19/18) pt states he has severe reaction Subjective AFVSS, stable on RA Doing better Mood improved, no SI/HI/AVH Brayan PO, voiding, no F/C/CP/SOB Objective Last 24 Hour Vital Signs Date Time Temp Pulse Resp B/P (MAP) Pulse Ox O2 Delivery O2 Flow Rate FiO2 11/21/18 11:59 97.9 95 20 94/65 (75) 95 11/21/18 09:00 Room Air 11/21/18 08:02 97 Room Air 21 11/21/18 08:00 Room Air 21 11/21/18 07:54 98.4 83 20 119/76 (90) 92 11/21/18 04:00 97.5 78 18 111/76 (88) 95 11/21/18 00:00 97.7 78 18 112/70 (84) 95 11/20/18 21:00 Room Air 11/20/18 20:00 97.8 87 19 128/90 (103) 96 11/20/18 18:52 98 Room Air 21 11/20/18 18:52 Room Air 21 11/20/18 16:00 98.1 101 18 128/81 (97) 98 Intake and Output 11/20/18 11/21/18 19:00 07:00 Intake Total 200 ml 480 ml Balance 200 ml 480 ml Intake Oral 480 ml IV Total 200 ml # Voids 4 Height (Feet): 5 Height (Inches): 6.00 Weight (Pounds): 206 General Appearance: WD/WN, no apparent distress, alert EENT: PERRL/EOMI, normal ENT inspection Neck: non-tender, normal alignment, supple Cardiovascular: normal peripheral pulses, normal rate, regular rhythm Respiratory/Chest: chest wall non-tender, lungs clear, normal breath sounds, no respiratory distress, no accessory muscle use Abdomen: normal bowel sounds, non tender, soft, no organomegaly, no mass Edema: no edema noted Arm (L), no edema noted Arm (R), no edema noted Leg (L), no edema noted Leg (R), no edema noted Pedal (L), no edema noted Pedal (R), no edema noted Generalized Frantz Leary MD Nov 21, 2018 14:38
--- NOTE | 2018-11-21 15:44 | Infectious Diseases Prog Note ---
Assessment/Plan Assessment/Plan ASSESSMENT AND PLAN: 1. Fevers, ? aspiration event/pna, ? sepsis, ? uti, + ua, urine culture negative - rocephin plus flagyl - day # 5 abx - can change to oral ceftin plus flagyl x 3 days soon - cultures negative - monitor labs, chest x-ray and labs, monitor temps - clinically improved 2. overdose secondary to Seroquel and Celexa - supportive tx per primary and consultants 3. History of bipolar disease per the records. 4. Anxiety. 5. ADHD. 6. No history of diabetes or hypertension. 7. No known allergies. 8. Social history negative. 9. Family history noncontributory. 10. MAR was noted. 11. Case discussed with RN. 12. ICU care. 13. Continue treatment per primary consultants. Subjective Constitutional: Denies: fever HEENT: Denies: congestion Respiratory: Denies: shortness of breath Cardiovascular: Denies: chest pain Gastrointestinal/Abdominal: Denies: nausea Genitourinary: Denies: dysuria, hematuria Neurologic: Denies: headache Skin: Denies: rash Hematologic: Denies: bleeding Musculoskeletal: Denies: pain Allergies: Coded Allergies: LURASIDONE (Verified Allergy, Severe, 11/19/18) pt states he has severe reaction Objective Vital Signs Last 24 Hour Vital Signs Date Time Temp Pulse Resp B/P (MAP) Pulse Ox O2 Delivery O2 Flow Rate FiO2 11/21/18 11:59 97.9 95 20 94/65 (75) 95 11/21/18 09:00 Room Air 11/21/18 08:02 97 Room Air 11/21/18 08:00 Room Air 21 11/21/18 07:54 98.4 83 20 119/76 (90) 92 11/21/18 04:00 97.5 78 18 111/76 (88) 95 11/21/18 00:00 97.7 78 18 112/70 (84) 95 11/20/18 21:00 Room Air 11/20/18 20:00 97.8 87 19 128/90 (103) 96 11/20/18 18:52 98 Room Air 21 11/20/18 18:52 Room Air 21 11/20/18 16:00 98.1 101 18 128/81 (97) 98 Height (Feet): 5 Height (Inches): 6.00 Weight (Pounds): 206 General Appearance: no acute distress HEENT: normocephalic, atraumatic, anicteric, mucous membranes moist Respiratory/Chest: lungs clear, normal breath sounds, no respiratory distress, no accessory muscle use Cardiovascular: normal rate, regular rhythm, no gallop/murmur, no JVD Abdomen: normal bowel sounds, soft, non tender, no organomegaly, non distended Genitourinary: other - no murray Extremities: no cyanosis Skin: no rash 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 Heart size and mediastinal contours stable. Change elevation of the right hemidiaphragm. Interval decrease in retrocardiac exam linear opacities at the left base. Impression: * Interval removal of endotracheal tube. * Improved aeration of the left lung base with decreased retrocardiac and linear opacities. Chest x-ray - 11/20 - IMPRESSION: 1. Linear atelectasis in the right lung base,. 2. Persistent mild elevation of the right hemidiaphragm, not significantly changed. Microbiology Date/Time Source Procedure Growth Status 11/17/18 08:55 Blood Blood Culture - Preliminary NO GROWTH AFTER 72 HOURS Resulted 11/17/18 08:20 Sputum Induced Gram Stain - Final Complete 11/17/18 08:20 Sputum Induced Sputum Culture - Final NORMAL UPPER RESPIRATORY MONISHA PRESENT Complete 11/17/18 09:15 Indwelling Cath Urine Culture - Final NO GROWTH AFTER 48 HOURS Complete 11/14/18 17:14 Rectum VRE Culture - Final NO VANCOMYCIN RESISTANT ENTEROCOCCUS ... Complete 11/14/18 17:14 Rectum - Final NO CARBAPENEM-RESISTANT ENTEROBACTERI... Complete Labs Test 11/18/18 21:00 11/19/18 04:46 11/20/18 05:28 Vancomycin Level Trough 6.9 ug/mL (5.0-12.0) White Blood Count 7.1 K/UL (4.8-10.8) 7.2 K/UL (4.8-10.8) Red Blood Count 5.99 M/UL (4.70-6.10) 6.62 M/UL (4.70-6.10) Hemoglobin 12.1 G/DL (14.2-18.0) 13.1 G/DL (14.2-18.0) Hematocrit 39.9 % (42.0-52.0) 43.7 % (42.0-52.0) Mean Corpuscular Volume 67 FL (80-99) 66 FL (80-99) Mean Corpuscular Hemoglobin 20.2 PG (27.0-31.0) 19.9 PG (27.0-31.0) Mean Corpuscular Hemoglobin Concent 30.3 G/DL (32.0-36.0) 30.0 G/DL (32.0-36.0) Red Cell Distribution Width 14.4 % (11.6-14.8) 14.7 % (11.6-14.8) Platelet Count 179 K/UL (150-450) 209 K/UL (150-450) Mean Platelet Volume 6.9 FL (6.5-10.1) 6.6 FL (6.5-10.1) Neutrophils (%) (Auto) 69.2 % (45.0-75.0) 58.6 % (45.0-75.0) Lymphocytes (%) (Auto) 17.3 % (20.0-45.0) 26.3 % (20.0-45.0) Monocytes (%) (Auto) 9.4 % (1.0-10.0) 11.3 % (1.0-10.0) Eosinophils (%) (Auto) 3.3 % (0.0-3.0) 3.5 % (0.0-3.0) Basophils (%) (Auto) 0.8 % (0.0-2.0) 0.4 % (0.0-2.0) Sodium Level 136 MMOL/L (136-145) 137 MMOL/L (136-145) Potassium Level 3.4 MMOL/L (3.5-5.1) 3.8 MMOL/L (3.5-5.1) Chloride Level 100 MMOL/L (98-107) 101 MMOL/L (98-107) Carbon Dioxide Level 28 MMOL/L (21-32) 27 MMOL/L (21-32) Anion Gap 8 mmol/L (5-15) 9 mmol/L (5-15) Blood Urea Nitrogen 7 mg/dL (7-18) 11 mg/dL (7-18) Creatinine 1.1 MG/DL (0.55-1.30) 1.0 MG/DL (0.55-1.30) Estimat Glomerular Filtration Rate > 60 mL/min (>60) > 60 mL/min (>60) Glucose Level 104 MG/DL (74-106) 97 MG/DL (74-106) Calcium Level 8.9 MG/DL (8.5-10.1) 9.3 MG/DL (8.5-10.1) Phosphorus Level 2.6 MG/DL (2.5-4.9) Magnesium Level 1.6 MG/DL (1.8-2.4) Total Bilirubin 0.3 MG/DL (0.2-1.0) Direct Bilirubin 0.1 MG/DL (0.0-0.3) Aspartate Amino Transf (AST/SGOT) 25 U/L (15-37) Alanine Aminotransferase (ALT/SGPT) 25 U/L (12-78) Alkaline Phosphatase 96 U/L (46-116) Total Protein 7.0 G/DL (6.4-8.2) Albumin 3.0 G/DL (3.4-5.0) Current Medications Medications (Trade) Dose Ordered Sig/Oliva Route PRN Reason Start Time Stop Time Status Last Admin Dose Admin Acetaminophen (Tylenol) 650 mg Q6H PRN ORAL Mild Pain/Temp > 100.0 11/19/18 21:45 12/19/18 21:44 Amitriptyline HCl (Elavil) 25 mg BEDTIME ORAL 11/20/18 21:00 12/18/18 20:59 11/20/18 22:30 Ceftriaxone Sodium 1 gm/ Dextrose 50 ml @ 100 mls/hr Q24H IVPB 11/20/18 15:00 11/26/18 14:59 11/21/18 13:56 Citalopram Hydrobromide (celeXA) 20 mg DAILY ORAL 11/20/18 09:00 12/19/18 08:59 11/21/18 08:16 Gemfibrozil (Lopid) 600 mg TWICE A DAY NG 11/20/18 09:00 12/17/18 17:59 11/21/18 08:16 Heparin Sodium (Porcine) (Heparin 5000 units/ml) 5,000 units EVERY 12 HOURS SUBQ 11/20/18 09:00 12/14/18 20:59 11/21/18 08:17 Lorazepam (Ativan 2mg/ml 1ml) 1 mg Q2H PRN IM Agitation 11/19/18 21:46 11/22/18 21:45 Lorazepam (Ativan 2mg/ml 1ml) 1 mg Q6H PRN IV For Seizures 11/19/18 21:46 11/26/18 21:45 Magnesium Oxide (Mag-Ox 400mg) 400 mg THREE TIMES A DAY ORAL 11/20/18 09:00 12/19/18 17:59 11/21/18 13:51 Metronidazole 100 ml @ 100 mls/hr Q8HR IVPB 11/19/18 22:00 11/22/18 15:59 11/21/18 13:55 Pantoprazole (Protonix) 40 mg DAILY ORAL 11/20/18 09:00 12/20/18 08:59 11/21/18 08:16 Potassium Chloride (K-Dur) 40 meq DAILY ORAL 11/20/18 09:00 12/20/18 08:59 11/21/18 08:16 Quetiapine Fumarate (SEROquel) 200 mg BEDTIME ORAL 11/20/18 21:00 12/20/18 20:59 11/20/18 22:30 Markos Billings MD Nov 21, 2018 15:44
[2018-11-21 16:00] VITALS: BP 108/72
[2018-11-21 20:00] VITALS: BP 126/88
[2018-11-21] MEDS: QUEtiapine 200mg tab ORAL SCH (21:34)
--- NOTE | 2018-11-21 22:48 | General Progress Note ---
Assessment/Plan Problem List: (1) Bipolar disorder ICD Codes: F31.9 - Bipolar disorder, unspecified SNOMED: 57086230 Qualifiers: (2) encephalopathy due to toxin Assessment/Plan celexa 20mg qhs seroquel 200mg qhs the pt is at imminent dts/sto the pt was provide st transfer to psychiatric unit Subjective Neurologic/Psychiatric: Reports: anxiety, depressed, emotional problems Allergies: Coded Allergies: LURASIDONE (Verified Allergy, Severe, 11/19/18) pt states he has severe reaction Subjective the pt stated that he couldn't go back to the previous facility. the pt is hopeless and lonely. the pt stated that if he goes to [facility] he will kill self Objective Last 24 Hour Vital Signs Date Time Temp Pulse Resp B/P (MAP) Pulse Ox O2 Delivery O2 Flow Rate FiO2 11/21/18 21:00 Room Air 11/21/18 20:00 98.9 84 19 126/88 (101) 96 11/21/18 19:56 Room Air 21 11/21/18 19:56 99 Room Air 21 11/21/18 16:00 97.6 86 20 108/72 (84) 96 11/21/18 11:59 97.9 95 20 94/65 (75) 95 11/21/18 09:00 Room Air 11/21/18 08:02 97 Room Air 21 11/21/18 08:00 Room Air 21 11/21/18 07:54 98.4 83 20 119/76 (90) 92 11/21/18 04:00 97.5 78 18 111/76 (88) 95 11/21/18 00:00 97.7 78 18 112/70 (84) 95 Intake and Output 11/20/18 11/21/18 19:00 07:00 Intake Total 200 ml 480 ml Balance 200 ml 480 ml Intake Oral 480 ml IV Total 200 ml # Voids 4 Height (Feet): 5 Height (Inches): 6.00 Weight (Pounds): 206 General Appearance: no apparent distress, alert Neurologic: oriented x 3, responsive, depressed affect Nery Chiang MD Nov 21, 2018 22:48
[2018-11-22] VITALS: BP 116/74
[2018-11-22 04:00] VITALS: BP 102/76
[2018-11-22 08:00] VITALS: BP 118/85
[2018-11-22] MEDS: Citalopram Hydrobromide 10mg Tab ORAL SCH (09:43)
[2018-11-22] MEDS: Magnesium Oxide 400mg tab ORAL SCH ×3 (09:44→17:37)
[2018-11-22] MEDS: Heparin 5000 units/ml inj SUBQ SCH ×2 (09:45→20:27)
[2018-11-22 11:50] VITALS: BP 115/81
--- NOTE | 2018-11-22 14:09 | Neurology Progress Note ---
Interim History Interim History Interim History Mr. Grace feels very well. Dr. Chiang wanted me to re-evaluate him today. His headache is finally getting better. He says his mood has improved and he is a "normal happy." He does not feel like he is going into a manic spell. His appetite is better and he is eating well. He was able to sleep well last night. He is breathing well. His voice is normal. He is less anxious. The mind is clear. He is able to communicate well. His strength is excellent. His headache is about the same. He has been walking well. He does get a little lightheaded when he starts walking. He denies any new neurologic symptoms. Review of Systems Neuro Review of Systems Benign. Objective Physical Exam Last Vital Signs Date Time Temp Pulse Resp B/P (MAP) Pulse Ox O2 Delivery O2 Flow Rate FiO2 11/22/18 11:50 98.0 97 18 115/81 (92) 99 11/22/18 09:00 Room Air 11/22/18 07:50 21 11/18/18 23:48 2.0 Neurologic Exam Objective PHYSICAL EXAMINATION: GENERAL: He is a well-developed, well-nourished, slightly obese, gentleman, sitting up in bed in no acute distress. HEAD: Head is normocephalic and atraumatic. EENT: Examination benign. NECK: No neck rigidity was observed. NEUROLOGICAL EXAMINATION: MENTAL STATUS EXAMINATION: He was awake and alert. He was oriented to self, [facility] and November 22, 2018. He was able to recall 3/3 words immediately and could remember them in 1 and 3 minutes. He was able to remember presidents [place] through [employer]. His mathematical skills were good. His visuospatial function was preserved. SPEECH: His voice was normal. LANGUAGE: He had no aphasia. CRANIAL NERVE EXAMINATION: II: The visual sims were intact on confrontation. III, IV & : The external ocular movements were full and the pupils were 3 mm in diameter, equal, round, regular, and reactive to light. V: He had normal facial sensations and the temporales, masseters and pterygoids functioned normally. VII: He had normal facial expressions and no facial asymmetry. VIII: He was able to hear well and had no nystagmus. IX: The palate moved symmetrically on phonation. X: The voice was hoarse. XI: The sternocleidomastoids and trapezii did function. XII: The tongue was in the midline without fasciculations or atrophy. MOTOR SYSTEM: The tone was normal in all four extremities. Examination of muscle mass revealed no focal wasting. Examination of power revealed G 5/5 power. SENSORY EXAMINATION: He had intact sensations to light touch and graphesthesia. REFLEXES: 2+ and bilaterally symmetrical at the biceps, triceps, brachioradialis, and knees. 1+ at both ankles. The plantar responses were flexor bilaterally. COORDINATION: He performed well on finger to nose testing. STANCE & GAIT: Were normal. Impression/Recommendations Diagnostic Impression 1. Mr. Nabil Grace is a 48-year-old, gentleman, of unknown handedness, who does have a past history of bipolar affective disorder, who was hospitalized on 11/14/2018 after he overdosed on an unknown quantity of Seroquel and Celexa. He was brought into the [facility] emergency room and was placed on BiPAP. Of note is that a stomach lavage was not performed. He was then transferred to the ICU and was on BiPAP in the ICU until it was discontinued at approximately 1130 hours. At approximately 1415 hours, he was noted to have an episode of generalized clonic movements, lasting approximately 10 seconds associated with severe oxygen desaturation and worsening of his mental state. He was bagged immediately and soon afterwards he was intubated and artificially ventilated. He was then sedated with propofol and fentanyl. 2. He feels very well. His headache is finally getting better. He says his mood has improved and he is a "normal happy." He does not feel like he is going into a manic spell. His appetite is better and he is eating well. He was able to sleep well last night. He is breathing well. His voice is normal. He is less anxious. The mind is clear. He is able to communicate well. His strength is excellent. His headache is about the same. He has been walking well. He does get a little lightheaded when he starts walking. He denies any new neurologic symptoms. 3. He has had a daily headache for the last 40 years, which he localizes inside his head. It is a pressure-like sensation. The headache gets better when he is less anxious and depressed and gets worse when he more anxious and depressed. Over the years he has been given various different drugs and none of them have worked. The headache has finally improved today. 4. On neurological examination, at this time, he is awake and alert. He is fully oriented. His memory is normal. His mathematical skills are good. His visuospatial function is preserved. His voice has normalized. He had no aphasia. His cranial nerve function, motor function, and sensory function are normal. His reflexes are normal and symmetrical. 5. His latest laboratory data on my initial evaluation revealed that he was anemic with a hemoglobin of 13.1. His arterial blood gas following the event revealed a pH of 7.29, a pCO2 of 48, a pO2 of 76, and a bicarbonate of 22.5. His chemistry panel revealed a BUN elevated at 19 and low calcium at 8.3. His urinalysis revealed 1+ leukocyte esterase, 0-2 RBCs, and 10-15 WBCs per high- power field. His urine toxicology screen was negative. 6. The Brain CT done on 11/16/18 was normal. 7. His EEG done on 11/16/18 revealed a mild encephalopathy. 8. It is still unclear if the episode of abnormal clonic movements was due to a hypoxic event or a true seizure. 9. His encephalopathy has reversed completely. 10. He has had headache for the last 40 years. It is difficult to classify the headache. He has been started on Elavil for it and is tolerating it well. His headache is finally improving. Recommendations 1. Continue present management. 2. Aggressive treatment of depression as per Dr Chiang. 3. Elavil 25 mg q HS for headache. 4. Increase activity as tolerated. 5. Will stop following as he is neurologically stable. 6. Follow-up in office in 6-8 weeks. Please call if any neurologic questions or concerns arise. Lázaro Hale M.D., M.S.P.H. Lázaro Hale MD Nov 22, 2018 14:09
--- NOTE | 2018-11-22 14:20 | General Progress Note ---
Assessment/Plan Problem List: (1) Bipolar disorder ICD Codes: F31.9 - Bipolar disorder, unspecified SNOMED: 02172462 Qualifiers: (2) encephalopathy due to toxin Status: stable, progressing Assessment/Plan celexa 40mg qhs seroquel 300mg qhs elavil for headache the pt is at imminent dts/sto the pt was provide st transfer to psychiatric unit Subjective Neurologic/Psychiatric: Reports: anxiety, depressed Allergies: Coded Allergies: LURASIDONE (Verified Allergy, Severe, 11/19/18) pt states he has severe reaction Subjective the pt stated that he is still depressed and has si. the pt does not endorse psychotic or manic sxs Objective Last 24 Hour Vital Signs Date Time Temp Pulse Resp B/P (MAP) Pulse Ox O2 Delivery O2 Flow Rate FiO2 11/22/18 11:50 98.0 97 18 115/81 (92) 99 11/22/18 09:00 Room Air 11/22/18 08:00 98.1 100 18 118/85 (96) 94 11/22/18 07:50 Room Air 21 11/22/18 07:50 99 Room Air 21 11/22/18 04:00 98.4 99 19 102/76 (85) 94 11/22/18 00:00 98.7 78 19 116/74 (88) 94 11/21/18 21:00 Room Air 11/21/18 20:00 98.9 84 19 126/88 (101) 96 11/21/18 19:56 Room Air 21 11/21/18 19:56 99 Room Air 21 11/21/18 16:00 97.6 86 20 108/72 (84) 96 Intake and Output 11/21/18 11/22/18 18:59 06:59 Intake Total 1500 ml Balance 1500 ml Intake Oral 1200 ml IV Total 300 ml # Voids 3 Height (Feet): 5 Height (Inches): 6.00 Weight (Pounds): 206 General Appearance: no apparent distress, alert Neurologic: oriented x 3, responsive, depressed affect Nery Chiang MD Nov 22, 2018 14:20
--- NOTE | 2018-11-22 14:25 | Infectious Diseases Prog Note ---
Assessment/Plan Assessment/Plan ASSESSMENT AND PLAN: 1. Fevers, ? aspiration event/pna, ? sepsis, ? uti, + ua, urine culture negative - discontinue rocephin - oral ceftin plus flagyl x 3 days - cultures negative - monitor labs, chest x-ray and labs, monitor temps - clinically improved 2. overdose secondary to Seroquel and Celexa - supportive tx per primary and consultants 3. History of bipolar disease per the records. 4. Anxiety. 5. ADHD. 6. No history of diabetes or hypertension. 7. No known allergies. 8. Social history negative. 9. Family history noncontributory. 10. MAR was noted. 11. Case discussed with RN. 12. ICU care. 13. Continue treatment per primary consultants. Subjective Constitutional: Denies: fever HEENT: Denies: congestion Respiratory: Denies: shortness of breath Cardiovascular: Denies: chest pain Gastrointestinal/Abdominal: Denies: nausea Genitourinary: Denies: dysuria, hematuria, frequency Neurologic: Denies: headache Psychiatric: Denies: depression Skin: Denies: rash Hematologic: Denies: bleeding Musculoskeletal: Reports: pain Allergies: Coded Allergies: LURASIDONE (Verified Allergy, Severe, 11/19/18) pt states he has severe reaction Objective Vital Signs Last 24 Hour Vital Signs Date Time Temp Pulse Resp B/P (MAP) Pulse Ox O2 Delivery O2 Flow Rate FiO2 11/22/18 11:50 98.0 97 18 115/81 (92) 99 11/22/18 09:00 Room Air 11/22/18 08:00 98.1 100 18 118/85 (96) 94 11/22/18 07:50 Room Air 21 11/22/18 07:50 99 Room Air 21 11/22/18 04:00 98.4 99 19 102/76 (85) 94 11/22/18 00:00 98.7 78 19 116/74 (88) 94 11/21/18 21:00 Room Air 11/21/18 20:00 98.9 84 19 126/88 (101) 96 11/21/18 19:56 Room Air 21 11/21/18 19:56 99 Room Air 21 11/21/18 16:00 97.6 86 20 108/72 (84) 96 Height (Feet): 5 Height (Inches): 6.00 Weight (Pounds): 206 General Appearance: no acute distress HEENT: normocephalic, atraumatic, anicteric, mucous membranes moist Respiratory/Chest: lungs clear, normal breath sounds, no respiratory distress, no accessory muscle use Cardiovascular: normal rate, regular rhythm, no gallop/murmur, no JVD Abdomen: normal bowel sounds, soft, non tender, no organomegaly, non distended Genitourinary: other - no murray, no cva pain Extremities: no cyanosis Skin: no rash Neurologic/Psychiatric: group social worker II-XII grossly normal, alert, oriented x 3, responsive Lymphatic: no neck adenopathy Musculoskeletal: no effusion Objective Chest x-ray - Comparison: 11/16/2018 Findings: Interval removal of endotracheal and enteric tubes. Heart size and mediastinal contours stable. Change elevation of the right hemidiaphragm. Interval decrease in retrocardiac exam linear opacities at the left base. Impression: * Interval removal of endotracheal tube. * Improved aeration of the left lung base with decreased retrocardiac and linear opacities. Chest x-ray - 11/20 - IMPRESSION: 1. Linear atelectasis in the right lung base,. 2. Persistent mild elevation of the right hemidiaphragm, not significantly changed. Microbiology Date/Time Source Procedure Growth Status 11/17/18 08:55 Blood Blood Culture - Preliminary NO GROWTH AFTER 4 DAYS Resulted 11/17/18 08:20 Sputum Induced Gram Stain - Final Complete 11/17/18 08:20 Sputum Induced Sputum Culture - Final NORMAL UPPER RESPIRATORY MONISHA PRESENT Complete 11/17/18 09:15 Indwelling Cath Urine Culture - Final NO GROWTH AFTER 48 HOURS Complete 11/14/18 17:14 Rectum VRE Culture - Final NO VANCOMYCIN RESISTANT ENTEROCOCCUS ... Complete 11/14/18 17:14 Rectum - Final NO CARBAPENEM-RESISTANT ENTEROBACTERI... Complete Labs Test 11/20/18 05:28 White Blood Count 7.2 K/UL (4.8-10.8) Red Blood Count 6.62 M/UL (4.70-6.10) Hemoglobin 13.1 G/DL (14.2-18.0) Hematocrit 43.7 % (42.0-52.0) Mean Corpuscular Volume 66 FL (80-99) Mean Corpuscular Hemoglobin 19.9 PG (27.0-31.0) Mean Corpuscular Hemoglobin Concent 30.0 G/DL (32.0-36.0) Red Cell Distribution Width 14.7 % (11.6-14.8) Platelet Count 209 K/UL (150-450) Mean Platelet Volume 6.6 FL (6.5-10.1) Neutrophils (%) (Auto) 58.6 % (45.0-75.0) Lymphocytes (%) (Auto) 26.3 % (20.0-45.0) Monocytes (%) (Auto) 11.3 % (1.0-10.0) Eosinophils (%) (Auto) 3.5 % (0.0-3.0) Basophils (%) (Auto) 0.4 % (0.0-2.0) Sodium Level 137 MMOL/L (136-145) Potassium Level 3.8 MMOL/L (3.5-5.1) Chloride Level 101 MMOL/L (98-107) Carbon Dioxide Level 27 MMOL/L (21-32) Anion Gap 9 mmol/L (5-15) Blood Urea Nitrogen 11 mg/dL (7-18) Creatinine 1.0 MG/DL (0.55-1.30) Estimat Glomerular Filtration Rate > 60 mL/min (>60) Glucose Level 97 MG/DL (74-106) Calcium Level 9.3 MG/DL (8.5-10.1) Current Medications Medications (Trade) Dose Ordered Sig/Oliva Route PRN Reason Start Time Stop Time Status Last Admin Dose Admin Acetaminophen (Tylenol) 650 mg Q6H PRN ORAL Mild Pain/Temp > 100.0 11/19/18 21:45 12/19/18 21:44 Amitriptyline HCl (Elavil) 25 mg BEDTIME ORAL 11/20/18 21:00 12/18/18 20:59 11/21/18 21:35 Cefuroxime Axetil (Ceftin) 500 mg EVERY 12 HOURS ORAL 11/22/18 21:00 11/29/18 20:59 UNV Citalopram Hydrobromide (celeXA) 40 mg DAILY ORAL 11/22/18 09:00 12/22/18 08:59 11/22/18 09:43 Gemfibrozil (Lopid) 600 mg TWICE A DAY NG 11/20/18 09:00 12/17/18 17:59 11/22/18 09:43 Heparin Sodium (Porcine) (Heparin 5000 units/ml) 5,000 units EVERY 12 HOURS SUBQ 11/20/18 09:00 12/14/18 20:59 11/22/18 09:45 Lorazepam (Ativan 2mg/ml 1ml) 1 mg Q2H PRN IM Agitation 11/19/18 21:46 11/22/18 21:45 Lorazepam (Ativan 2mg/ml 1ml) 1 mg Q6H PRN IV For Seizures 11/19/18 21:46 11/26/18 21:45 Magnesium Oxide (Mag-Ox 400mg) 400 mg THREE TIMES A DAY ORAL 11/20/18 09:00 12/19/18 17:59 11/22/18 13:53 Metronidazole (Flagyl) 500 mg EVERY 8 HOURS ORAL 11/22/18 22:00 11/25/18 21:59 Pantoprazole (Protonix) 40 mg DAILY ORAL 11/20/18 09:00 12/20/18 08:59 11/22/18 09:43 Potassium Chloride (K-Dur) 40 meq DAILY ORAL 11/20/18 09:00 12/20/18 08:59 11/22/18 09:44 Quetiapine Fumarate (SEROquel) 300 mg BEDTIME ORAL 11/22/18 21:00 12/22/18 20:59 Markos Billings MD Nov 22, 2018 14:25
[2018-11-22 16:00] VITALS: BP 105/73
--- NOTE | 2018-11-22 16:17 | General Progress Note ---
Assessment/Plan Problem List: (1) Drug overdose ICD Codes: T50.901A - Poisoning by unspecified drugs, medicaments and biological substances, accidental (unintentional), initial encounter SNOMED: 64723418 Qualifiers: Qualified Codes: T50.902A - Poisoning by unspecified drugs, medicaments and biological substances, intentional self-harm, initial encounter (2) Suicide gesture ICD Codes: X83.8XXA - Intentional self-harm by other specified means, initial encounter SNOMED: 39523756 Qualifiers: Qualified Codes: X83.8XXA - Intentional self-harm by other specified means, initial encounter (3) Respiratory failure ICD Codes: J96.90 - Respiratory failure, unspecified, unspecified whether with hypoxia or hypercapnia SNOMED: 435013736 Qualifiers: Qualified Codes: J96.01 - Acute respiratory failure with hypoxia; J96.02 - Acute respiratory failure with hypercapnia (4) UTI (urinary tract infection) ICD Codes: N39.0 - Urinary tract infection, site not specified SNOMED: 39881701 Qualifiers: Qualified Codes: N39.0 - Urinary tract infection, site not specified (5) encephalopathy due to toxin (6) Seizure ICD Codes: R56.9 - Unspecified convulsions SNOMED: 31161702 (7) Bipolar disorder ICD Codes: F31.9 - Bipolar disorder, unspecified SNOMED: 29376345 Qualifiers: (8) Acute renal failure ICD Codes: N17.9 - Acute kidney failure, unspecified SNOMED: 59654428 (9) High triglycerides ICD Codes: E78.1 - Pure hyperglyceridemia SNOMED: 587412069 (10) Rash and nonspecific skin eruption ICD Codes: R21 - Rash and other nonspecific skin eruption SNOMED: 355436150, 756792265 Status: doing well Assessment/Plan F/U psych recs: Celexa 20 mg PO qDaily + Seroquel 100 mg OP qHS PRN Ativan Per neuro Elavil 25 mg PO qHS for SOTELO Monitor MS and mood PO Cefitin & Flagyl 3 more days per ID Encourage OOB PPI, HEP SQ Dispo planning to psych unit? D/W Dr. Chiang, she is concerned that patient will become suicidal if he returns to his previous facility Subjective Allergies: Coded Allergies: LURASIDONE (Verified Allergy, Severe, 11/19/18) pt states he has severe reaction Subjective AFVSS, stable on RA Doing better Mood improved, no SI/HI/AVH Brayan PO, voiding, no F/C/CP/SOB Now on PO Abx Objective Last 24 Hour Vital Signs Date Time Temp Pulse Resp B/P (MAP) Pulse Ox O2 Delivery O2 Flow Rate FiO2 11/22/18 16:00 98.4 84 20 105/73 (84) 95 11/22/18 11:50 98.0 97 18 115/81 (92) 99 11/22/18 09:00 Room Air 11/22/18 08:00 98.1 100 18 118/85 (96) 94 11/22/18 07:50 Room Air 21 11/22/18 07:50 99 Room Air 21 11/22/18 04:00 98.4 99 19 102/76 (85) 94 11/22/18 00:00 98.7 78 19 116/74 (88) 94 11/21/18 21:00 Room Air 11/21/18 20:00 98.9 84 19 126/88 (101) 96 11/21/18 19:56 Room Air 21 11/21/18 19:56 99 Room Air 21 Intake and Output 11/21/18 11/22/18 18:59 06:59 Intake Total 1500 ml Balance 1500 ml Intake Oral 1200 ml IV Total 300 ml # Voids 3 Height (Feet): 5 Height (Inches): 6.00 Weight (Pounds): 206 General Appearance: WD/WN, no apparent distress EENT: PERRL/EOMI, normal ENT inspection Neck: non-tender, normal alignment, supple, normal inspection Cardiovascular: normal peripheral pulses, normal rate, regular rhythm Respiratory/Chest: chest wall non-tender, lungs clear, normal breath sounds, no respiratory distress, no accessory muscle use Abdomen: normal bowel sounds, non tender, soft, no organomegaly, no mass Edema: no edema noted Arm (L), no edema noted Arm (R), no edema noted Leg (L), no edema noted Leg (R), no edema noted Pedal (L), no edema noted Pedal (R), no edema noted Generalized Frantz Leary MD Nov 22, 2018 16:17
[2018-11-22 20:00] VITALS: BP 113/78
[2018-11-22] MEDS: metroNIDAZOLE 500mg tab ORAL SCH (21:24)
[2018-11-23] VITALS: BP 121/68
[2018-11-23 04:00] VITALS: BP 114/78
[2018-11-23] MEDS: metroNIDAZOLE 500mg tab ORAL SCH ×3 (05:41→21:02)
[2018-11-23 07:33] LABS: BASOPHILS % (AUTO) 0.8 % (0.0-2.0); EOSINOPHILS % (AUTO) 2.7 % (0.0-3.0); HEMOGLOBIN 14.4 G/DL (14.2-18.0); LYMPHOCYTES % (AUTO) 29.9 % (20.0-45.0); MEAN CORPUSCULAR VOLUME 67 FL (80-99); MONOCYTES % (AUTO) 9.5 % (1.0-10.0); PLATELET COUNT 269 K/UL (150-450); RED BLOOD COUNT 7.05 M/UL (4.70-6.10); RED CELL DISTRIBUTION WIDTH 16.1 % (11.6-14.8); WHITE BLOOD COUNT 8.6 K/UL (4.8-10.8)
[2018-11-23 08:00] VITALS: BP 113/74
[2018-11-23 08:07] LABS: ALANINE AMINOTRANSFERASE 82 U/L (12-78); ALBUMIN 3.4 G/DL (3.4-5.0); ALBUMIN/GLOBULIN RATIO 0.7 (1.0-2.7); ALKALINE PHOSPHATASE 104 U/L (46-116); ANION GAP 9 mmol/L (5-15); ASPARTATE AMINO TRANSFERASE 63 U/L (15-37); BILIRUBIN,TOTAL 0.3 MG/DL (0.2-1.0); BLOOD UREA NITROGEN 16 mg/dL (7-18); CALCIUM 9.3 MG/DL (8.5-10.1); CARBON DIOXIDE 28 MMOL/L (21-32); CHLORIDE 100 MMOL/L (98-107); POTASSIUM 4.2 MMOL/L (3.5-5.1); SODIUM 137 MMOL/L (136-145)
[2018-11-23] MEDS: Citalopram Hydrobromide 10mg Tab ORAL SCH (08:47)
[2018-11-23] MEDS: Magnesium Oxide 400mg tab ORAL SCH ×3 (08:47→17:37)
[2018-11-23] MEDS: Heparin 5000 units/ml inj SUBQ SCH ×2 (08:48→20:12)
[2018-11-23 12:00] VITALS: BP 110/72
--- NOTE | 2018-11-23 12:30 | General Progress Note ---
Assessment/Plan Problem List: (1) Drug overdose ICD Codes: T50.901A - Poisoning by unspecified drugs, medicaments and biological substances, accidental (unintentional), initial encounter SNOMED: 31615806 Qualifiers: Qualified Codes: T50.902A - Poisoning by unspecified drugs, medicaments and biological substances, intentional self-harm, initial encounter (2) Suicide gesture ICD Codes: X83.8XXA - Intentional self-harm by other specified means, initial encounter SNOMED: 41271011 Qualifiers: Qualified Codes: X83.8XXA - Intentional self-harm by other specified means, initial encounter (3) Respiratory failure ICD Codes: J96.90 - Respiratory failure, unspecified, unspecified whether with hypoxia or hypercapnia SNOMED: 281068938 Qualifiers: Qualified Codes: J96.01 - Acute respiratory failure with hypoxia; J96.02 - Acute respiratory failure with hypercapnia (4) UTI (urinary tract infection) ICD Codes: N39.0 - Urinary tract infection, site not specified SNOMED: 53342773 Qualifiers: Qualified Codes: N39.0 - Urinary tract infection, site not specified (5) encephalopathy due to toxin (6) Seizure ICD Codes: R56.9 - Unspecified convulsions SNOMED: 66279583 (7) Bipolar disorder ICD Codes: F31.9 - Bipolar disorder, unspecified SNOMED: 96372639 Qualifiers: (8) Acute renal failure ICD Codes: N17.9 - Acute kidney failure, unspecified SNOMED: 16275699 (9) High triglycerides ICD Codes: E78.1 - Pure hyperglyceridemia SNOMED: 319076644 (10) Rash and nonspecific skin eruption ICD Codes: R21 - Rash and other nonspecific skin eruption SNOMED: 437901285, 883194402 Assessment/Plan F/U psych recs: Celexa 20 mg PO qDaily + Seroquel 100 mg OP qHS PRN Ativan Per neuro Elavil 25 mg PO qHS for SOTELO Monitor MS and mood PO Cefitin & Flagyl 2 more days per ID Encourage OOB PPI, HEP SQ Dispo planning to psych unit? D/W Dr. Chiang, she is concerned that patient will become suicidal if he returns to his previous facility Subjective Allergies: Coded Allergies: LURASIDONE (Verified Allergy, Severe, 11/19/18) pt states he has severe reaction Subjective AFVSS, stable on RA Doing well Mood stable, no SI/HI/AVH Brayan PO, voiding, no F/C/CP/SOB Objective Last 24 Hour Vital Signs Date Time Temp Pulse Resp B/P (MAP) Pulse Ox O2 Delivery O2 Flow Rate FiO2 11/23/18 08:00 97.6 75 18 113/74 (87) 98 11/23/18 07:27 98 Room Air 21 11/23/18 07:27 Room Air 21 11/23/18 04:00 97.6 89 19 114/78 (90) 97 11/23/18 00:00 98.1 90 19 121/68 (85) 97 11/22/18 21:00 Room Air 11/22/18 20:00 97.8 78 20 113/78 (90) 97 11/22/18 19:38 97 Room Air 21 11/22/18 19:38 Room Air 21 11/22/18 16:00 98.4 84 20 105/73 (84) 95 Intake and Output 11/22/18 11/23/18 19:00 07:00 Intake Total 1060 ml 760 ml Output Total 4 ml 2 ml Balance 1056 ml 758 ml Intake Oral 960 ml 760 ml IV Total 100 ml Output Urine Total 4 ml 2 ml # Voids 1 4 Laboratory Tests 11/23/18 06:50: White Blood Count 8.6, Red Blood Count 7.05H, Hemoglobin 14.4, Hematocrit 47.0, Mean Corpuscular Volume 67L, Mean Corpuscular Hemoglobin 20.5L, Mean Corpuscular Hemoglobin Concent 30.7L, Red Cell Distribution Width 16.1H, Platelet Count 269, Mean Platelet Volume 7.6, Neutrophils (%) (Auto) 57.0, Lymphocytes (%) (Auto) 29.9, Monocytes (%) (Auto) 9.5, Eosinophils (%) (Auto) 2.7, Basophils (%) (Auto) 0.8, Sodium Level 137, Potassium Level 4.2, Chloride Level 100, Carbon Dioxide Level 28, Anion Gap 9, Blood Urea Nitrogen 16, Creatinine 1.0, Estimat Glomerular Filtration Rate > 60, Glucose Level 107H, Calcium Level 9.3, Total Bilirubin 0.3, Aspartate Amino Transf (AST/SGOT) 63H, Alanine Aminotransferase (ALT/SGPT) 82H, Alkaline Phosphatase 104, Total Protein 8.4H, Albumin 3.4, Globulin 5.0, Albumin/Globulin Ratio 0.7L Height (Feet): 5 Height (Inches): 6.00 Weight (Pounds): 206 General Appearance: WD/WN, no apparent distress, alert EENT: PERRL/EOMI, normal ENT inspection, TMs normal Neck: non-tender, normal alignment, supple Cardiovascular: normal peripheral pulses, normal rate, regular rhythm Respiratory/Chest: chest wall non-tender, lungs clear, normal breath sounds, no respiratory distress Abdomen: normal bowel sounds, non tender, soft, no organomegaly, no mass Edema: no edema noted Arm (L), no edema noted Arm (R), no edema noted Leg (L), no edema noted Leg (R), no edema noted Pedal (L), no edema noted Pedal (R), no edema noted Generalized Frantz Leary MD Nov 23, 2018 12:30
--- NOTE | 2018-11-23 14:35 | Infectious Diseases Prog Note ---
Assessment/Plan Assessment/Plan ASSESSMENT AND PLAN: 1. Fevers, ? aspiration event/pna, ? sepsis, ? uti, + ua, urine culture negative - oral ceftin plus flagyl x 2 days - cultures negative - monitor labs, chest x-ray and labs, monitor temps - clinically improved 2. overdose secondary to Seroquel and Celexa - supportive tx per primary and consultants 3. History of bipolar disease per the records. 4. Anxiety. 5. ADHD. 6. No history of diabetes or hypertension. 7. No known allergies. 8. Social history negative. 9. Family history noncontributory. 10. MAR was noted. 11. Case discussed with RN. 12. ICU care. 13. Continue treatment per primary consultants. Subjective Constitutional: Denies: fever, fatigue HEENT: Denies: congestion Respiratory: Denies: shortness of breath Cardiovascular: Denies: chest pain Gastrointestinal/Abdominal: Denies: nausea, vomiting, diarrhea Genitourinary: Denies: dysuria, hematuria Neurologic: Denies: headache, numbness Psychiatric: Denies: depression Skin: Denies: rash Hematologic: Denies: bleeding Musculoskeletal: Denies: pain Allergies: Coded Allergies: LURASIDONE (Verified Allergy, Severe, 11/19/18) pt states he has severe reaction Objective Vital Signs Last 24 Hour Vital Signs Date Time Temp Pulse Resp B/P (MAP) Pulse Ox O2 Delivery O2 Flow Rate FiO2 11/23/18 12:00 97.8 100 18 110/72 (85) 95 11/23/18 09:00 Room Air 11/23/18 08:00 97.6 75 18 113/74 (87) 98 11/23/18 07:27 98 Room Air 21 11/23/18 07:27 Room Air 21 11/23/18 04:00 97.6 89 19 114/78 (90) 97 11/23/18 00:00 98.1 90 19 121/68 (85) 97 11/22/18 21:00 Room Air 11/22/18 20:00 97.8 78 20 113/78 (90) 97 11/22/18 19:38 97 Room Air 21 11/22/18 19:38 Room Air 21 11/22/18 16:00 98.4 84 20 105/73 (84) 95 Height (Feet): 5 Height (Inches): 6.00 Weight (Pounds): 206 General Appearance: no acute distress HEENT: normocephalic, atraumatic, anicteric, mucous membranes moist Respiratory/Chest: lungs clear, normal breath sounds, no respiratory distress, no accessory muscle use Cardiovascular: normal rate, regular rhythm, no gallop/murmur, no JVD Abdomen: normal bowel sounds, soft, non tender, no organomegaly, non distended Genitourinary: other - no murray Extremities: no cyanosis Skin: no rash 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 Heart size and mediastinal contours stable. Change elevation of the right hemidiaphragm. Interval decrease in retrocardiac exam linear opacities at the left base. Impression: * Interval removal of endotracheal tube. * Improved aeration of the left lung base with decreased retrocardiac and linear opacities. Chest x-ray - 11/20 - IMPRESSION: 1. Linear atelectasis in the right lung base,. 2. Persistent mild elevation of the right hemidiaphragm, not significantly changed. Microbiology Date/Time Source Procedure Growth Status 11/17/18 08:55 Blood Blood Culture - Final NO GROWTH AFTER 5 DAYS Complete 11/17/18 08:20 Sputum Induced Gram Stain - Final Complete 11/17/18 08:20 Sputum Induced Sputum Culture - Final NORMAL UPPER RESPIRATORY MONISHA PRESENT Complete 11/17/18 09:15 Indwelling Cath Urine Culture - Final NO GROWTH AFTER 48 HOURS Complete 11/14/18 17:14 Rectum VRE Culture - Final NO VANCOMYCIN RESISTANT ENTEROCOCCUS ... Complete 11/14/18 17:14 Rectum - Final NO CARBAPENEM-RESISTANT ENTEROBACTERI... Complete Laboratory Tests Test 11/23/18 06:50 White Blood Count 8.6 K/UL (4.8-10.8) Red Blood Count 7.05 M/UL (4.70-6.10) H Hemoglobin 14.4 G/DL (14.2-18.0) Hematocrit 47.0 % (42.0-52.0) Mean Corpuscular Volume 67 FL (80-99) L Mean Corpuscular Hemoglobin 20.5 PG (27.0-31.0) L Mean Corpuscular Hemoglobin Concent 30.7 G/DL (32.0-36.0) L Red Cell Distribution Width 16.1 % (11.6-14.8) H Platelet Count 269 K/UL (150-450) Mean Platelet Volume 7.6 FL (6.5-10.1) Neutrophils (%) (Auto) 57.0 % (45.0-75.0) Lymphocytes (%) (Auto) 29.9 % (20.0-45.0) Monocytes (%) (Auto) 9.5 % (1.0-10.0) Eosinophils (%) (Auto) 2.7 % (0.0-3.0) Basophils (%) (Auto) 0.8 % (0.0-2.0) Sodium Level 137 MMOL/L (136-145) Potassium Level 4.2 MMOL/L (3.5-5.1) Chloride Level 100 MMOL/L (98-107) Carbon Dioxide Level 28 MMOL/L (21-32) Anion Gap 9 mmol/L (5-15) Blood Urea Nitrogen 16 mg/dL (7-18) Creatinine 1.0 MG/DL (0.55-1.30) Estimat Glomerular Filtration Rate > 60 mL/min (>60) Glucose Level 107 MG/DL (74-106) H Calcium Level 9.3 MG/DL (8.5-10.1) Total Bilirubin 0.3 MG/DL (0.2-1.0) Aspartate Amino Transf (AST/SGOT) 63 U/L (15-37) H Alanine Aminotransferase (ALT/SGPT) 82 U/L (12-78) H Alkaline Phosphatase 104 U/L (46-116) Total Protein 8.4 G/DL (6.4-8.2) H Albumin 3.4 G/DL (3.4-5.0) Globulin 5.0 g/dL Albumin/Globulin Ratio 0.7 (1.0-2.7) L Current Medications Medications (Trade) Dose Ordered Sig/Oliva Route PRN Reason Start Time Stop Time Status Last Admin Dose Admin Acetaminophen (Tylenol) 650 mg Q6H PRN ORAL Mild Pain/Temp > 100.0 11/19/18 21:45 12/19/18 21:44 Amitriptyline HCl (Elavil) 25 mg BEDTIME ORAL 11/20/18 21:00 12/18/18 20:59 11/22/18 20:25 Cefuroxime Axetil (Ceftin) 500 mg EVERY 12 HOURS ORAL 11/22/18 21:00 11/29/18 20:59 11/23/18 08:48 Citalopram Hydrobromide (celeXA) 40 mg DAILY ORAL 11/22/18 09:00 12/22/18 08:59 11/23/18 08:47 Gemfibrozil (Lopid) 600 mg TWICE A DAY ORAL 11/22/18 18:00 12/17/18 17:59 11/23/18 08:47 Heparin Sodium (Porcine) (Heparin 5000 units/ml) 5,000 units EVERY 12 HOURS SUBQ 11/20/18 09:00 12/14/18 20:59 11/23/18 08:48 Lorazepam (Ativan 2mg/ml 1ml) 1 mg Q6H PRN IV For Seizures 11/19/18 21:46 11/26/18 21:45 Magnesium Oxide (Mag-Ox 400mg) 400 mg THREE TIMES A DAY ORAL 11/20/18 09:00 12/19/18 17:59 11/23/18 13:22 Metronidazole (Flagyl) 500 mg EVERY 8 HOURS ORAL 11/22/18 22:00 11/25/18 21:59 11/23/18 14:11 Pantoprazole (Protonix) 40 mg DAILY ORAL 11/20/18 09:00 12/20/18 08:59 11/23/18 08:47 Potassium Chloride (K-Dur) 40 meq DAILY ORAL 11/20/18 09:00 12/20/18 08:59 11/23/18 08:47 Quetiapine Fumarate (SEROquel) 300 mg BEDTIME ORAL 11/22/18 21:00 12/22/18 20:59 11/22/18 20:26 Markos Billings MD Nov 23, 2018 14:35
[2018-11-23 16:00] VITALS: BP 116/72
[2018-11-23 20:00] VITALS: BP 109/71
[2018-11-24] VITALS: BP 95/61
[2018-11-24 04:00] VITALS: BP 107/64
[2018-11-24] MEDS: metroNIDAZOLE 500mg tab ORAL SCH ×2 (05:47→14:12)
[2018-11-24 08:00] VITALS: BP 106/68
[2018-11-24] MEDS: Citalopram Hydrobromide 10mg Tab ORAL SCH (09:08)
[2018-11-24] MEDS: Magnesium Oxide 400mg tab ORAL SCH ×3 (09:08→18:34)
[2018-11-24] MEDS: Heparin 5000 units/ml inj SUBQ SCH (09:09)
[2018-11-24 12:00] VITALS: BP 115/81
--- NOTE | 2018-11-24 13:30 | General Progress Note ---
Assessment/Plan Problem List: (1) Drug overdose ICD Codes: T50.901A - Poisoning by unspecified drugs, medicaments and biological substances, accidental (unintentional), initial encounter SNOMED: 67843472 Qualifiers: Qualified Codes: T50.902A - Poisoning by unspecified drugs, medicaments and biological substances, intentional self-harm, initial encounter (2) Suicide gesture ICD Codes: X83.8XXA - Intentional self-harm by other specified means, initial encounter SNOMED: 96920256 Qualifiers: Qualified Codes: X83.8XXA - Intentional self-harm by other specified means, initial encounter (3) Respiratory failure ICD Codes: J96.90 - Respiratory failure, unspecified, unspecified whether with hypoxia or hypercapnia SNOMED: 307792914 Qualifiers: Qualified Codes: J96.01 - Acute respiratory failure with hypoxia; J96.02 - Acute respiratory failure with hypercapnia (4) UTI (urinary tract infection) ICD Codes: N39.0 - Urinary tract infection, site not specified SNOMED: 79338773 Qualifiers: Qualified Codes: N39.0 - Urinary tract infection, site not specified (5) encephalopathy due to toxin (6) Seizure ICD Codes: R56.9 - Unspecified convulsions SNOMED: 98483085 (7) Bipolar disorder ICD Codes: F31.9 - Bipolar disorder, unspecified SNOMED: 85678939 Qualifiers: (8) Acute renal failure ICD Codes: N17.9 - Acute kidney failure, unspecified SNOMED: 24128912 (9) High triglycerides ICD Codes: E78.1 - Pure hyperglyceridemia SNOMED: 705087837 (10) Rash and nonspecific skin eruption ICD Codes: R21 - Rash and other nonspecific skin eruption SNOMED: 492158639, 085672706 Assessment/Plan F/U psych recs: Celexa 20 mg PO qDaily + Seroquel 100 mg OP qHS PRN Ativan Per neuro Elavil 25 mg PO qHS for SOTELO Monitor MS and mood PO Cefitin & Flagyl 1 more days per ID Encourage OOB PPI, HEP SQ Dispo planning to psych facility - PATIENT IS MEDICALLY STABLE FOR TRANSFER Subjective Allergies: Coded Allergies: LURASIDONE (Verified Allergy, Severe, 11/19/18) pt states he has severe reaction Subjective AFVSS, stable on RA Doing well Mood stable, no SI/HI/AVH Brayan PO, voiding, no F/C/CP/SOB Objective Last 24 Hour Vital Signs Date Time Temp Pulse Resp B/P (MAP) Pulse Ox O2 Delivery O2 Flow Rate FiO2 11/24/18 12:00 98.0 101 18 115/81 (92) 99 11/24/18 09:00 Room Air 11/24/18 08:00 97.3 88 19 106/68 (81) 98 11/24/18 06:41 99 Room Air 21 11/24/18 06:41 Room Air 21 11/24/18 04:00 97.6 89 18 107/64 (78) 95 11/24/18 00:00 98.3 92 19 95/61 (72) 95 11/23/18 21:00 Room Air 11/23/18 20:36 Room Air 21 11/23/18 20:35 99 Room Air 21 11/23/18 20:00 98.8 91 19 109/71 (84) 95 11/23/18 16:00 98.3 94 19 116/72 (87) 98 Intake and Output 11/23/18 11/24/18 19:00 07:00 Intake Total 1200 ml Balance 1200 ml Intake Oral 1200 ml # Voids 3 1 Height (Feet): 5 Height (Inches): 6.00 Weight (Pounds): 206 General Appearance: WD/WN, no apparent distress, alert EENT: PERRL/EOMI, normal ENT inspection, TMs normal Neck: non-tender, normal alignment, supple, normal inspection Cardiovascular: normal peripheral pulses, normal rate, regular rhythm Respiratory/Chest: chest wall non-tender, lungs clear, normal breath sounds, no respiratory distress, no accessory muscle use Abdomen: normal bowel sounds, non tender, soft, no organomegaly Edema: no edema noted Arm (L), no edema noted Arm (R), no edema noted Leg (L), no edema noted Leg (R), no edema noted Pedal (L), no edema noted Pedal (R), no edema noted Generalized Frantz Leary MD Nov 24, 2018 13:30
--- NOTE | 2018-11-24 14:00 | Infectious Diseases Prog Note ---
Assessment/Plan Assessment/Plan ASSESSMENT AND PLAN: 1. Fevers, ? aspiration event/pna, ? sepsis, ? uti, + ua, urine culture negative - oral ceftin plus flagyl x 1 day - cultures negative - monitor labs, chest x-ray and labs, monitor temps - clinically improved 2. overdose secondary to Seroquel and Celexa - supportive tx per primary and consultants 3. History of bipolar disease per the records. 4. Anxiety. 5. ADHD. 6. No history of diabetes or hypertension. 7. No known allergies. 8. Social history negative. 9. Family history noncontributory. 10. MAR was noted. 11. Case discussed with RN. 12. ICU care. 13. Continue treatment per primary consultants. Subjective Constitutional: Denies: fever HEENT: Denies: congestion Respiratory: Denies: shortness of breath Cardiovascular: Denies: chest pain Gastrointestinal/Abdominal: Denies: nausea, vomiting Genitourinary: Denies: dysuria Neurologic: Denies: headache Psychiatric: Denies: anxiety Hematologic: Denies: bleeding Musculoskeletal: Denies: pain Allergies: Coded Allergies: LURASIDONE (Verified Allergy, Severe, 11/19/18) pt states he has severe reaction Objective Vital Signs Last 24 Hour Vital Signs Date Time Temp Pulse Resp B/P (MAP) Pulse Ox O2 Delivery O2 Flow Rate FiO2 11/24/18 12:00 98.0 101 18 115/81 (92) 99 11/24/18 09:00 Room Air 11/24/18 08:00 97.3 88 19 106/68 (81) 98 11/24/18 06:41 99 Room Air 21 11/24/18 06:41 Room Air 21 11/24/18 04:00 97.6 89 18 107/64 (78) 95 11/24/18 00:00 98.3 92 19 95/61 (72) 95 11/23/18 21:00 Room Air 11/23/18 20:36 Room Air 21 11/23/18 20:35 99 Room Air 21 11/23/18 20:00 98.8 91 19 109/71 (84) 95 11/23/18 16:00 98.3 94 19 116/72 (87) 98 Height (Feet): 5 Height (Inches): 6.00 Weight (Pounds): 206 General Appearance: no acute distress HEENT: normocephalic, atraumatic, anicteric, mucous membranes moist Respiratory/Chest: lungs clear, normal breath sounds, no respiratory distress, no accessory muscle use Cardiovascular: normal rate, regular rhythm, no gallop/murmur, no JVD Abdomen: normal bowel sounds, soft, non tender, no organomegaly, non distended Genitourinary: other - no murray Extremities: no cyanosis Skin: no rash, no ulcers Neurologic/Psychiatric: alert, oriented x 3, responsive Lymphatic: no neck adenopathy Musculoskeletal: no effusion Objective Chest x-ray - Comparison: 11/16/2018 Findings: Interval removal of endotracheal and enteric tubes. Heart size and mediastinal contours stable. Change elevation of the right hemidiaphragm. Interval decrease in retrocardiac exam linear opacities at the left base. Impression: * Interval removal of endotracheal tube. * Improved aeration of the left lung base with decreased retrocardiac and linear opacities. Chest x-ray - 11/20 - IMPRESSION: 1. Linear atelectasis in the right lung base,. 2. Persistent mild elevation of the right hemidiaphragm, not significantly changed. Microbiology Date/Time Source Procedure Growth Status 11/17/18 08:55 Blood Blood Culture - Final NO GROWTH AFTER 5 DAYS Complete 11/17/18 08:20 Sputum Induced Gram Stain - Final Complete 11/17/18 08:20 Sputum Induced Sputum Culture - Final NORMAL UPPER RESPIRATORY MONISHA PRESENT Complete 11/17/18 09:15 Indwelling Cath Urine Culture - Final NO GROWTH AFTER 48 HOURS Complete 11/14/18 17:14 Rectum VRE Culture - Final NO VANCOMYCIN RESISTANT ENTEROCOCCUS ... Complete 11/14/18 17:14 Rectum - Final NO CARBAPENEM-RESISTANT ENTEROBACTERI... Complete Labs Test 11/23/18 06:50 White Blood Count 8.6 K/UL (4.8-10.8) Red Blood Count 7.05 M/UL (4.70-6.10) Hemoglobin 14.4 G/DL (14.2-18.0) Hematocrit 47.0 % (42.0-52.0) Mean Corpuscular Volume 67 FL (80-99) Mean Corpuscular Hemoglobin 20.5 PG (27.0-31.0) Mean Corpuscular Hemoglobin Concent 30.7 G/DL (32.0-36.0) Red Cell Distribution Width 16.1 % (11.6-14.8) Platelet Count 269 K/UL (150-450) Mean Platelet Volume 7.6 FL (6.5-10.1) Neutrophils (%) (Auto) 57.0 % (45.0-75.0) Lymphocytes (%) (Auto) 29.9 % (20.0-45.0) Monocytes (%) (Auto) 9.5 % (1.0-10.0) Eosinophils (%) (Auto) 2.7 % (0.0-3.0) Basophils (%) (Auto) 0.8 % (0.0-2.0) Sodium Level 137 MMOL/L (136-145) Potassium Level 4.2 MMOL/L (3.5-5.1) Chloride Level 100 MMOL/L (98-107) Carbon Dioxide Level 28 MMOL/L (21-32) Anion Gap 9 mmol/L (5-15) Blood Urea Nitrogen 16 mg/dL (7-18) Creatinine 1.0 MG/DL (0.55-1.30) Estimat Glomerular Filtration Rate > 60 mL/min (>60) Glucose Level 107 MG/DL (74-106) Calcium Level 9.3 MG/DL (8.5-10.1) Total Bilirubin 0.3 MG/DL (0.2-1.0) Aspartate Amino Transf (AST/SGOT) 63 U/L (15-37) Alanine Aminotransferase (ALT/SGPT) 82 U/L (12-78) Alkaline Phosphatase 104 U/L (46-116) Total Protein 8.4 G/DL (6.4-8.2) Albumin 3.4 G/DL (3.4-5.0) Globulin 5.0 g/dL Albumin/Globulin Ratio 0.7 (1.0-2.7) Current Medications Medications (Trade) Dose Ordered Sig/Oliva Route PRN Reason Start Time Stop Time Status Last Admin Dose Admin Acetaminophen (Tylenol) 650 mg Q6H PRN ORAL Mild Pain/Temp > 100.0 11/19/18 21:45 12/19/18 21:44 Amitriptyline HCl (Elavil) 25 mg BEDTIME ORAL 11/20/18 21:00 12/18/18 20:59 12/25/18 20:11 Cefuroxime Axetil (Ceftin) 500 mg EVERY 12 HOURS ORAL 11/22/18 21:00 11/29/18 20:59 11/24/18 09:08 Citalopram Hydrobromide (celeXA) 40 mg DAILY ORAL 11/22/18 09:00 12/22/18 08:59 11/24/18 09:08 Gemfibrozil (Lopid) 600 mg TWICE A DAY ORAL 11/22/18 18:00 12/17/18 17:59 11/24/18 09:08 Heparin Sodium (Porcine) (Heparin 5000 units/ml) 5,000 units EVERY 12 HOURS SUBQ 11/20/18 09:00 12/14/18 20:59 11/24/18 09:09 Lorazepam (Ativan 2mg/ml 1ml) 1 mg Q6H PRN IV For Seizures 11/19/18 21:46 11/26/18 21:45 Magnesium Oxide (Mag-Ox 400mg) 400 mg THREE TIMES A DAY ORAL 11/20/18 09:00 12/19/18 17:59 11/24/18 09:08 Metronidazole (Flagyl) 500 mg EVERY 8 HOURS ORAL 11/22/18 22:00 11/25/18 21:59 11/24/18 05:47 Pantoprazole (Protonix) 40 mg DAILY ORAL 11/20/18 09:00 12/20/18 08:59 11/24/18 09:09 Potassium Chloride (K-Dur) 40 meq DAILY ORAL 11/20/18 09:00 12/20/18 08:59 11/24/18 09:08 Quetiapine Fumarate (SEROquel) 300 mg BEDTIME ORAL 11/22/18 21:00 12/22/18 20:59 11/23/18 20:11 Markos Billings MD Nov 24, 2018 14:00
--- NOTE | 2018-11-24 15:08 | General Progress Note ---
Assessment/Plan Problem List: (1) Bipolar disorder ICD Codes: F31.9 - Bipolar disorder, unspecified SNOMED: [id number] Qualifiers: (2) encephalopathy due to toxin Status: stable Assessment/Plan celexa 40mg qhs seroquel 300mg qhs elavil for headache the pt is not at imminent dts/sto the pt was provide st transfer to psychiatric unit Subjective Neurologic/Psychiatric: Reports: anxiety, depressed, emotional problems Allergies: Coded Allergies: LURASIDONE (Verified Allergy, Severe, 11/19/18) pt states he has severe reaction Subjective the pt stated that he is still depressed and anxious the pt is willing to go to psych the pt is not at imminent danger to self Objective Last 24 Hour Vital Signs Date Time Temp Pulse Resp B/P (MAP) Pulse Ox O2 Delivery O2 Flow Rate FiO2 11/24/18 12:00 98.0 101 18 115/81 (92) 99 11/24/18 09:00 Room Air 11/24/18 08:00 97.3 88 19 106/68 (81) 98 11/24/18 06:41 99 Room Air 21 11/24/18 06:41 Room Air 21 11/24/18 04:00 97.6 89 18 107/64 (78) 95 11/24/18 00:00 98.3 92 19 95/61 (72) 95 11/23/18 21:00 Room Air 11/23/18 20:36 Room Air 21 11/23/18 20:35 99 Room Air 21 11/23/18 20:00 98.8 91 19 109/71 (84) 95 11/23/18 16:00 98.3 94 19 116/72 (87) 98 Intake and Output 11/23/18 11/24/18 19:00 07:00 Intake Total 1200 ml Balance 1200 ml Intake Oral 1200 ml # Voids 3 1 Height (Feet): 5 Height (Inches): 6.00 Weight (Pounds): 206 General Appearance: no apparent distress, alert Neurologic: oriented x 3, responsive, depressed affect Nery Chiang MD Nov 24, 2018 15:08
[2018-11-24 18:40] VITALS: BP 120/86
--- NOTE | 2018-11-25 14:00 | Discharge Summary ---
Discharge Summary Discharge Summary _ DATE OF ADMISSION: 11/14/2018 DATE OF DISCHARGE: 11/24/2018 DISCHARGED BY: Dr. Frantz Leary CONSULTANTS: Dr. Nery Llanes [facility] HOSPITAL COURSE: Patient is a 48-year-old male, was brought in by EMS due to an overdose. Patient allegedly took Seroquel and Celexa. Unable to ascertain time of intake. There were multiple tablets that were taken. Power Lineman reported decreased mentation while on the way to the hospital. EKG done in the field was sinus tachycardia. Patient stated he took pills 2 hours prior to admission and wanted to kill himself. He has history of bipolar disorder, ADHD and anxiety. On arrival to ED, patient was tachycardic and had decreased mentation. He was hypoxemic but was protecting airway. He was given IV hydration. Gastric lavage not done since intake was greater than 2 hours since ingestion. No need for benzodiazepines as patient was not agitated. Heart rhythm was monitored as there was concern for arrhythmia. ABG showed pH 7.2, PCO2 52 and bicarb 25. O2 saturation was 89%. He was started on BiPAP. Blood work showed no leukocytosis, hemoglobin and hematocrit were stable. Electrolytes were normal. Urine toxicology was negative. Acetaminophen level less than 2. Serum alcohol less than 3. Salicylates 1.7. He was admitted to ICU for evaluation of drug overdose, respiratory failure, and UTI. He was given ceftriaxone pending culture results. Psychiatric consultation was obtained. Patient was agitated and had myoclonic movements. Ativan was increased to every 2 hours. He desaturated and had worsening of AMS. ER physician was called for an emergent oral intubation. There was a noted rise in creatinine. Neurologist was consulted. Unclear if clonic episode was due to hypoxia or a true seizure. He was given activated charcoal. He was started on Flagyl, and ceftriaxone for possible aspiration pneumonia. NG tube was inserted. He had a CT of the brain that was normal. EEG done revealed mild encephalopathy. Mental status eventually improved. He complained of headache for the last 40 years. He was given Elavil nightly. Psychiatric evaluation recommended transfer to a psychiatric unit. Patient was anxious and had suicidal thoughts. He was eventually extubated on 11/18/2018. He was having fever. Patient was pancultured. ID was consulted and was given Flagyl, vancomycin and cefepime. He had elevated triglycerides and was given Lopid. Blood culture did not isolate any growth. Urine culture with no growth. Sputum culture with normal upper respiratory sola. Patient was given oral Ceftin and Flagyl. He completed antibiotic treatment and was eventually cleared for to transfer to a psychiatric facility. FINAL DIAGNOSES: Drug overdose Suicide gesture Acute respiratory failure requiring intubation status post extubation Possible aspiration pneumonia Urinary tract infection Toxic encephalopathy Possible seizure disorder Bipolar disorder Anxiety disorder ADHD Acute kidney failure High triglycerides Rash DISPOSITION: Patient was discharged to [facility] inpatient psych. DISCHARGE MEDICATIONS: Refer to Discharge Medication List. I have been assigned to dictate discharge summary on this account, and I was not involved in the patient's management. Komal Hartmann NP Nov 25, 2018 14:00
== END 2018-11-24 18:45 | DRG 917 ==
LOC: EDBD 16:28 → EMR 17:17 → ICU 17:21 → EDBEDREQ 18:42 → 3E 11-19 21:47
PROC: 5A1945Z Respiratory Ventilation, 24-96 Consecutive Hours (ICD-10-PCS; principal; 2018-11-15)
PROC: 0BH17EZ Insertion of Endotracheal Airway into Trachea, Via Natural or Artificial Opening (ICD-10-PCS; principal; 2018-11-15)
DX: T43.592A Poisoning by other antipsychotics and neuroleptics, intentional self-harm, initial encounter (principal); J96.01 Acute respiratory failure with hypoxia; G92 Toxic encephalopathy; J69.0 Pneumonitis due to inhalation of food and vomit; N39.0 Urinary tract infection, site not specified; N17.9 Acute kidney failure, unspecified; T43.222A Poisoning by selective serotonin reuptake inhibitors, intentional self-harm, initial encounter; Y92.9 Unspecified place or not applicable; F31.9 Bipolar disorder, unspecified; F90.9 Attention-deficit hyperactivity disorder, unspecified type; F41.9 Anxiety disorder, unspecified; R56.9 Unspecified convulsions; R21 Rash and other nonspecific skin eruption; R00.0 Tachycardia, unspecified; D64.9 Anemia, unspecified
CPT/HCPCS: 36415; 36600; 70450; 71045; 74018; 80048; 80053; 80061; 80076; 80202; 80307; 80329; 81001; 81003; 82140; 82550; 82607; 82728; 82746; 82803; 82977; 83036; 83540; 83550; 83605; 83690; 83735; 83880; 84100; 84443; 84478; 84484; 84550; 85025; 86140; 87040; 87070; 87081; 87086; 87205; 93005; 94002; 94003; 94660; 94664; 94760; 95819; 96361; 96365; 96366; 96367; 99291; J8499